=== PATIENT | female | born 1975 | race Caucasian/White ===

== ENCOUNTER 2017-11-07 07:02 | Inpatient (IN) ==
[2017-11-07] MEDS ORDERED: Acetaminophen 325 MG Tablet PO ONE (07:46)
[2017-11-07] MEDS ORDERED: Vancomycin Inj 1,000 MG in Sodium Chlor 0.9% Inj 250 ML IV.SIG ONE (07:50)
[2017-11-07] MEDS ORDERED: HYDROmorphone PF Inj 1 MG/ML Ampul IV.PUSH ONE (08:02)
[2017-11-07] MEDS ORDERED: HYDROmorphone PF Inj 2 MG/ML Vial IV.PUSH ONE (08:05)
--- NOTE | 2017-11-07 08:08 | ED ---
HPI General Chief Complaint: Back Pain/Injury Stated Complaint: back pain Time Seen by Provider: 11/07/17 07:36 History of Present Illness HPI Narrative: Patient presents to the emergency department complaint of back pain that started yesterday afternoon. She denies any fall or trauma. States that this is new and her back feels like it is stiffening up. Pain is described as being mid lower back, 10 out of 10, constant, sharp, radiates to her buttocks and shoots down both legs. Reports fever and chills and nausea but no vomiting. Also reports abdominal pain, and denies any bowel or bladder incontinence. She also denies any vaginal discharge. She denies any change in medication, spinal procedures. Related Data Home Medications Medication Instructions Recorded Confirmed No Known Home Medications 11/07/17 11/07/17 Allergies Allergy/AdvReac Type Severity Reaction Status Date / Time No Known Allergies Allergy Verified 11/07/17 07:45 Review of Systems Constitutional Reports as per [facility] Medical History Medical History Patient denies medical problems (Acute) Surgical History Surgical History History of (Acute) No history of previous surgery (Acute) Social History Social History Substance History: No History of Abuse Second Hand Smoke Exposure: Yes Smoking Status: Current every day smoker Tobacco Type: Cigarettes How Often Do You Have a Drink Containing Alcohol: Monthly or less Recent Travel in [facility] within the Last 8 Weeks: No Recent Out of Country Travel within the Last 8 Weeks: No Immunization History Tetanus Immunization: Unsure Hx Influenza Vaccine This Season: No Exam Narrative Exam Narrative: GENERAL: Discomfort secondary to pain SKIN: Focused skin assessment warm/dry. HEAD: Atraumatic. Normocephalic. EYES: Pupils equal and round. No scleral icterus. No injection or drainage. ENT: No nasal bleeding or discharge. Mucous membranes pink and moist. NECK: Trachea midline. No JVD. CARDIOVASCULAR: Regular rate and rhythm. No murmur appreciated. RESPIRATORY: No accessory muscle use. Clear to auscultation. Breath sounds equal bilaterally. GASTROINTESTINAL: Abdomen soft, diffusely tender, nondistended. Hepatic and splenic margins not palpable. Rectal: Patient refused MUSCULOSKELETAL: No obvious deformities. No clubbing. No cyanosis. No edema. No focal C or T spine tenderness but L-spine tenderness to palpation. NEUROLOGICAL: Awake and alert. No obvious cranial nerve deficits. Motor grossly within normal limits. Normal speech. no saddle anesthesia, 5/5 strength bilat UE and LE, slight hyporeflexic bilat LE, no babinski PSYCHIATRIC: Appropriate mood and affect; insight and judgment normal. Course Initial Documented Vital Signs Temperature 99.3 F 11/07/17 07:23 Pulse Rate 110 H 11/07/17 07:23 Blood Pressure 164/87 H 11/07/17 07:23 Pulse Oximetry 97 11/07/17 07:23 Last Documented Vital Signs Temperature 102.1 F H 11/07/17 07:45 Pulse Rate 101 H 11/07/17 07:45 Respiratory Rate 16 11/07/17 10:30 Blood Pressure 113/75 11/07/17 10:30 Pulse Oximetry 99 11/07/17 10:30 Medical Decision Making MDM Narrative Medical decision making narrative: Patient presents to the emergency department with fever and abdominal pain and mid lower back pain. Patient placed on cardiac cath technologist, continuous pulse ox, IV access obtained. CT abdomen pelvis, MRI L-spine, labs, 1 g IV vancomycin, Tylenol 650 mg p.o., Zofran 4 mg IV ordered. Patient also given 2mg IV morphine. Labs: Elevated lactate, CRP, sed rate, UA + LE CT: CONCLUSION:1. Nonobstructive bowel gas pattern with moderate amount of stool throughout the colon. No oral contrast was given significantly limiting the visualization of the bowel mesentery in this patient with limited mesenteric fat.2. The gallbladder is unremarkable in appearance. MRI L spine: CONCLUSION: 1. Patent central canal and neural foramina throughout.2. No abscess.3. Facet arthropathy changes at L4-L5and L5-S1 1221: NSY blood donor recruiter paged. Advised to call Neuro. 1228: Neuro paged. Recommend brain, C, T spine with and without MRI, UDS, infectious disease consult after aforementioned MRI. Per MRI, since patient had contrast, must wait 6 hours from last MRI to get additional scans. Differential Diagnosis Differential Diagnosis: Kidney stone, pyelonephritis, epidural abscess, fracture /dislocation, UTI, appendicitis, pancreatitis, sepsis Lab Data Result diagrams: 11/07/17 07:50 11/07/17 07:50 Lab Results 11/07/17 11/07/17 11/07/17 Range/Units 07:50 07:50 07:50 WBC 9.8 (4.0-11.0) th/mm3 RBC 4.76 (4.00-5.30) mil/mm3 Hgb 13.3 (11.6-15.3) gm/dL Hct 39.7 (35.0-46.0) % MCV 83.4 (80.0-100.0) fL MCH 27.9 (27.0-34.0) pg MCHC 33.5 (32.0-36.0) % RDW 13.6 (11.6-17.2) % Plt Count 218 (150-450) th/mm3 MPV 7.2 (7.0-11.0) fL Neut % (Auto) 90.0 H (16.0-70.0) % Lymph % (Auto) 5.4 L (9.0-44.0) % [place] % (Auto) 4.1 (0.0-8.0) % Eos % (Auto) 0.2 (0.0-4.0) % Baso % (Auto) 0.3 (0.0-2.0) % Neut # (Auto) 8.8 H (1.8-7.7) th/mm3 Lymph # (Auto) 0.5 L (1.0-4.8) th/mm3 [place] # (Auto) 0.4 (0.0-0.9) th/mm3 Eos # (Auto) 0.0 (0.0-0.4) th/mm3 Baso # (Auto) 0.0 (0.0-0.2) th/mm3 WBC Differential . Differential Comment Auto diff final ESR (0-20) mm/hr PT 10.9 (9.8-11.6) sec INR 1.1 Ratio APTT 24.7 (24.3-30.1) sec Sodium 134 L (136-145) meq/L Potassium 3.8 (3.5-5.1) meq/L Chloride 103 (98-107) meq/L Carbon Dioxide 21.6 (21.0-32.0) meq/L Anion Gap 9 (5-15) meq/L BUN 12 (7-18) mg/dL Creatinine 0.98 (0.50-1.00) mg/dL Estimated GFR 62 L (>89) mL/min Random Glucose 108 H (74-106) mg/dL Lactic Acid (0.4-2.0) mmol/L Calcium 9.2 (8.5-10.1) mg/dL Total Bilirubin 0.6 (0.2-1.0) mg/dL AST 25 (15-37) U/L ALT 28 (10-53) U/L Alkaline Phosphatase 83 (45-117) U/L C-Reactive Protein (0.00-0.30) mg/dL Total Protein 8.3 H (6.4-8.2) g/dL Albumin 3.5 (3.4-5.0) g/dL Lipase (73-393) U/L Urine Color (Yellw/Straw) Urine Clarity (Clear) Urine pH (5.0-8.5) Ur Specific [place] (1.002-1.035) Urine Protein (Neg-Trace) mg/dL Urine Glucose (UA) (Negative) mg/dL Urine Ketones (Negative) mg/dL Urine Occult Blood (Negative) Urine Nitrate (Negative) Urine Bilirubin (Negative) Urine Urobilinogen (Less than 2) mg/dL Ur Leukocyte Esterase (Negative) Urine RBC (0-3) /hpf Urine WBC (0-5) /hpf Ur Squamous Epith Cells (0-5) /hpf Micro UA Comment Urine Culture Comments 11/07/17 11/07/17 11/07/17 Range/Units 07:50 07:50 07:50 WBC (4.0-11.0) th/mm3 RBC (4.00-5.30) mil/mm3 Hgb (11.6-15.3) gm/dL Hct (35.0-46.0) % MCV (80.0-100.0) fL MCH (27.0-34.0) pg MCHC (32.0-36.0) % RDW (11.6-17.2) % Plt Count (150-450) th/mm3 MPV (7.0-11.0) fL Neut % (Auto) (16.0-70.0) % Lymph % (Auto) (9.0-44.0) % [place] % (Auto) (0.0-8.0) % Eos % (Auto) (0.0-4.0) % Baso % (Auto) (0.0-2.0) % Neut # (Auto) (1.8-7.7) th/mm3 Lymph # (Auto) (1.0-4.8) th/mm3 [place] # (Auto) (0.0-0.9) th/mm3 Eos # (Auto) (0.0-0.4) th/mm3 Baso # (Auto) (0.0-0.2) th/mm3 WBC Differential Differential Comment ESR (0-20) mm/hr PT (9.8-11.6) sec INR Ratio APTT (24.3-30.1) sec Sodium (136-145) meq/L Potassium (3.5-5.1) meq/L Chloride (98-107) meq/L Carbon Dioxide (21.0-32.0) meq/L Anion Gap (5-15) meq/L BUN (7-18) mg/dL Creatinine (0.50-1.00) mg/dL Estimated GFR (>89) mL/min Random Glucose (74-106) mg/dL Lactic Acid 2.9 H (0.4-2.0) mmol/L Calcium (8.5-10.1) mg/dL Total Bilirubin (0.2-1.0) mg/dL AST (15-37) U/L ALT (10-53) U/L Alkaline Phosphatase (45-117) U/L C-Reactive Protein 2.00 H (0.00-0.30) mg/dL Total Protein (6.4-8.2) g/dL Albumin (3.4-5.0) g/dL Lipase 65 L (73-393) U/L Urine Color (Yellw/Straw) Urine Clarity (Clear) Urine pH (5.0-8.5) Ur Specific [place] (1.002-1.035) Urine Protein (Neg-Trace) mg/dL Urine Glucose (UA) (Negative) mg/dL Urine Ketones (Negative) mg/dL Urine Occult Blood (Negative) Urine Nitrate (Negative) Urine Bilirubin (Negative) Urine Urobilinogen (Less than 2) mg/dL Ur Leukocyte Esterase (Negative) Urine RBC (0-3) /hpf Urine WBC (0-5) /hpf Ur Squamous Epith Cells (0-5) /hpf Micro UA Comment Urine Culture Comments 11/07/17 11/07/17 Range/Units 07:50 11:25 WBC (4.0-11.0) th/mm3 RBC (4.00-5.30) mil/mm3 Hgb (11.6-15.3) gm/dL Hct (35.0-46.0) % MCV (80.0-100.0) fL MCH (27.0-34.0) pg MCHC (32.0-36.0) % RDW (11.6-17.2) % Plt Count (150-450) th/mm3 MPV (7.0-11.0) fL Neut % (Auto) (16.0-70.0) % Lymph % (Auto) (9.0-44.0) % [place] % (Auto) (0.0-8.0) % Eos % (Auto) (0.0-4.0) % Baso % (Auto) (0.0-2.0) % Neut # (Auto) (1.8-7.7) th/mm3 Lymph # (Auto) (1.0-4.8) th/mm3 [place] # (Auto) (0.0-0.9) th/mm3 Eos # (Auto) (0.0-0.4) th/mm3 Baso # (Auto) (0.0-0.2) th/mm3 WBC Differential Differential Comment ESR 44 H (0-20) mm/hr PT (9.8-11.6) sec INR Ratio APTT (24.3-30.1) sec Sodium (136-145) meq/L Potassium (3.5-5.1) meq/L Chloride (98-107) meq/L Carbon Dioxide (21.0-32.0) meq/L Anion Gap (5-15) meq/L BUN (7-18) mg/dL Creatinine (0.50-1.00) mg/dL Estimated GFR (>89) mL/min Random Glucose (74-106) mg/dL Lactic Acid (0.4-2.0) mmol/L Calcium (8.5-10.1) mg/dL Total Bilirubin (0.2-1.0) mg/dL AST (15-37) U/L ALT (10-53) U/L Alkaline Phosphatase (45-117) U/L C-Reactive Protein (0.00-0.30) mg/dL Total Protein (6.4-8.2) g/dL Albumin (3.4-5.0) g/dL Lipase (73-393) U/L Urine Color Yellow (Yellw/Straw) Urine Clarity Clear (Clear) Urine pH 8.0 (5.0-8.5) Ur Specific [place] 1.026 (1.002-1.035) Urine Protein Negative (Neg-Trace) mg/dL Urine Glucose (UA) Negative (Negative) mg/dL Urine Ketones Negative (Negative) mg/dL Urine Occult Blood Negative (Negative) Urine Nitrate Negative (Negative) Urine Bilirubin Negative (Negative) Urine Urobilinogen Less than 2 (Less than 2) mg/dL Ur Leukocyte Esterase Small H (Negative) Urine RBC 1 (0-3) /hpf Urine WBC 3 (0-5) /hpf Ur Squamous Epith Cells 3 (0-5) /hpf Micro UA Comment Cath-culture not ind Urine Culture Comments Cath-cult not ind Imaging Data Radiologist's impression: Abdomen/Pelvis CT 11/07/17 07:48 CONCLUSION: 1. Nonobstructive bowel gas pattern with moderate amount of stool throughout the colon. No oral contrast was given significantly limiting the visualization of the bowel mesentery in this patient with limited mesenteric fat. 2. The gallbladder is unremarkable in appearance. Lumbar Spine MRI 11/07/17 07:48 CONCLUSION: 1. Patent central canal and neural foramina throughout. 2. No abscess. 3. Facet arthropathy changes at L4-L5 and L5-S1. Discharge Plan Discharge Disposition Patient Disposition: 30 Still Patient Discharge Condition Condition: Stable Discharge Details Diagnosis: Fever, Back pain Physicians Team ED Provider: Rissa Hebert Primary Care Provider: Primary Care EliseiGertrude Rxs /Orders / Referrals /Forms Prescriptions: No Action No Known Home Medications RF: 0 Discharge Interventions Interventions: Vital Signs Last Done: 11/07/17 10:30 Status ED Status: Admitted Patient
[2017-11-07 08:09] LABS: Baso % (Auto) 0.3 % (0.0-2.0); Eos % (Auto) 0.2 % (0.0-4.0); Hematocrit 39.7 % (35.0-46.0); Hemoglobin 13.3 gm/dL (11.6-15.3); Lymph # (Auto) 0.5 th/mm3 (1.0-4.8); Lymph % (Auto) 5.4 % (9.0-44.0); Mean Corpuscular HGB Conc 33.5 % (32.0-36.0); Mean Corpuscular Hemoglobin 27.9 pg (27.0-34.0); Mean Corpuscular Volume 83.4 fL (80.0-100.0); Mean Platelet Volume 7.2 fL (7.0-11.0); Mono # (Auto) 0.4 th/mm3 (0.0-0.9); Mono % (Auto) 4.1 % (0.0-8.0); Neut # (Auto) 8.8 th/mm3 (1.8-7.7); Platelet Count 218 th/mm3 (150-450); Red Blood Count 4.76 mil/mm3 (4.00-5.30); Red Cell Distribution Width 13.6 % (11.6-17.2); White Blood Count 9.8 th/mm3 (4.0-11.0)
[2017-11-07 08:19] LABS: Activated Partial Thrombo Time 24.7 sec (24.3-30.1); INR 1.1 Ratio; Prothrombin Time 10.9 sec (9.8-11.6)
[2017-11-07 08:24] LABS: Alanine Aminotransferase 28 U/L (10-53); Albumin 3.5 g/dL (3.4-5.0); Anion Gap 9 meq/L (5-15); Aspartate Aminotransferase 25 U/L (15-37); Blood Urea Nitrogen 12 mg/dL (7-18); Calcium 9.2 mg/dL (8.5-10.1); Carbon Dioxide 21.6 meq/L (21.0-32.0); Chloride 103 meq/L (98-107); Glomerular Filtration Rate 62 mL/min (>89); Glucose,Random 108 mg/dL (74-106); Potassium 3.8 meq/L (3.5-5.1); Sodium 134 meq/L (136-145)
[2017-11-07 08:26] LABS: Alkaline Phosphatase 83 U/L (45-117); Total Protein 8.3 g/dL (6.4-8.2)
[2017-11-07] MEDS ORDERED: Sod Chloride 0.9% Inj 1,000 ML IV.SIG ONE (08:31)
[2017-11-07] MEDS ORDERED: Morphine Sulfate Inj 2 MG/ML Vial IV.PUSH ONE ×2 (09:13→12:19)
[2017-11-07] MEDS ORDERED: Gadobutrol PF 2 MMOL/2 ML Vial (for RAD) IV.SIG ONE (10:00)
--- NOTE | 2017-11-07 10:07 | CT ---
EXAM DATE: 11/07/2017 9:49 AM EDT AGE/SEX: 42 years / Female INDICATIONS: Diffuse abdominal pain and low back pain. CLINICAL DATA: This is the patient's initial encounter. Patient reports that signs and symptoms have been present for 1 day and indicates a pain score of 10/10. MEDICAL/SURGICAL HISTORY: None. None. ORAL CONTRAST: No oral contrast ingested. RADIATION DOSE: 5.65 CTDI (mGy) COMPARISON: No prior exams available for comparison. TECHNIQUE: Multiple contiguous axial images were obtained through the abdomen and pelvis following b olus infusion of 95 ml Omnipaque 350 (iohexol) nonionic water-soluble contrast as a single exam dos e. No oral contrast ingested. Using automated exposure control and adjustment of the mA and/or kV ac cording to patient size, radiation dose was kept as low as reasonably achievable to obtain optimal di agnostic quality images. DICOM format image data is available electronically for review and comparis on. FINDINGS: Lower Lungs: The visualized lower lungs are clear. Liver: The liver has a homogeneous density without space-occupying lesion. There is no dilation of th e biliary tree. The gallbladder is unremarkable in appearance. Spleen: Homogeneous density without enlargement. Pancreas: Unremarkable without mass or calcification. Kidneys: Normal in size and shape. No evidence of mass or hydronephrosis. Adrenal Glands: Unremarkable. Aorta: The aorta and proximal iliac vessels are grossly unremarkable without aneurysmal dilation. Bowel/Mesentery: No oral contrast was given significantly limiting the visualization of the bowel and mesentery. The patient has limited mesenteric fat and the bowel loops are directly contiguous and no t well . Visualization is suboptimal. Gas and stool is noted throughout the colon. The small bowel appears grossly unremarkable. The cecum and sigmoid colon have a normal configuration. Abdominal Wall: Intact. Retroperitoneum: No evidence of adenopathy in the retrocrural, para-aortic, or deep pelvic regions. Bladder: Contours are smooth. Reproductive Organs: No abnormal masses or calcifications seen. Inguinal: The inguinal region is unremarkable without evidence of adenopathy. Bony Structures: Unremarkable. CONCLUSION: 1. Nonobstructive bowel gas pattern with moderate amount of stool throughout the colon. No oral cont rast was given significantly limiting the visualization of the bowel mesentery in this patient with l imited mesenteric fat. 2. The gallbladder is unremarkable in appearance. Electronically signed by: Kailash Dorman MD 11/07/2017 10:05 AM EDT
--- NOTE | 2017-11-07 10:49 | MR ---
EXAM DATE: 11/07/2017 10:38 AM EDT AGE/SEX: 42 years / Female INDICATIONS: Abscess. Severe low back pain. CLINICAL DATA: This is the patient's initial encounter. Patient reports that signs and symptoms have been present for 1 day and indicates a pain score of 10/10. MEDICAL/SURGICAL HISTORY: None. section. Hysterectomy. Ankle repair. COMPARISON: No prior exams available for comparison. TECHNIQUE: Multiplanar, multisequence MRI examination of the lumbar spine was performed without and with 6 ml Gadavist (gadobutrol) contrast as a single exam dose. FINDINGS: The most caudal-appearing lumbar vertebra is numbered as L5. Vertebra: Homogeneous signal. Normal alignment. Conus: Normal level and configuration. Post Contrast: No abnormal areas of contrast enhancement are seen. T12-L1: The thecal sac has a normal diameter. No evidence of disc bulge or protrusion. The neural foramina are patent bilaterally. L1-L2: The thecal sac has a normal diameter. No evidence of disc bulge or protrusion. The neural foramina are patent bilaterally. L2-L3: The thecal sac has a normal diameter. No evidence of disc bulge or protrusion. The neural foramina are patent bilaterally. L3-L4: The thecal sac has a normal diameter. No evidence of disc bulge or protrusion. The neural foramina are patent bilaterally. L4-L5: The thecal sac has a normal diameter. No evidence of disc bulge or protrusion. The neural foramina are patent bilaterally. Prominent bony hypertrophy of the facets bilaterally. L5-S1: The thecal sac has a normal diameter. No evidence of disc bulge or protrusion. The neural foramina are patent bilaterally. Moderate bony hypertrophy of the facets. CONCLUSION: 1. Patent central canal and neural foramina throughout. 2. No abscess. 3. Facet arthropathy changes at L4-L5 and L5-S1. Electronically signed by: Ralph Uribe MD 11/07/2017 10:48 AM EDT
[2017-11-07] MEDS ORDERED: Piperacil/Tazo 3.375 GM Premix 50 ML IV.SIG ONE (11:15)
[2017-11-07 12:10] LABS: Bilirubin,Urine Negative (Negative); Clarity,Urine Clear (Clear); Color,Urine Yellow (Yellw/Straw); Glucose,Urine (UA) Negative (Negative); Leukocyte Esterase,Urine Small (Negative); Nitrite,Urine Negative (Negative); Specific Gravity,Urine 1.026 (1.002-1.035); Squamous Epithelial Cell,Urine 3 /hpf (0-5)
[2017-11-07] MEDS ORDERED: Ketorolac Inj 30 MG/ML (IVP) Vial IV.PUSH PRN (13:59)
[2017-11-07] MEDS ORDERED: MethylPREDNISolone Sod Succinate Inj 125 MG/2 ML Vial IV.PUSH ONE (14:00)
[2017-11-07] MEDS ORDERED: Acetaminophen 325 MG Tablet PO PRN (14:01)
--- NOTE | 2017-11-07 14:14 | P.HP ---
History of Present Illness Primary Care Physician: No Primary Care Physician History of Present Illness: This is a 42-year-old female who denies any chronic medical issues that presents with excruciating pain to her mid back. Onset of pain began yesterday when she awoke in her back was tender, spastic, aligned with onset of fevers. She suffered for a day and decided to come in for evaluation. She does not recall any injuries in the days leading up to this pain, denies falls, denies any twisting injury. She denies use of a new mattress or any new furniture. Prior to all of this she is very active, is a regular runner, and surfer. ER workup shows no leukocytosis, but markedly elevated CRP. Neurology was consulted and recommended MRI of the thoracic spine among other things. MRI of the lumbar spine was within normal limits. She denies any history of IV drug use. Inpatient Certification: I certify that the inpatient services were ordered in accordance with Medicare regulations governing the order. This includes certification that hospital inpatient services are reasonable and necessary and in the case of services not specified as inpatient-only under 42 CFR 419.22(n), that they are appropriately provided as inpatient services in accordance to with the 2-midnight benchmark under 43 CFR 412.3(e) Estimated Total Length of Stay (Days): 5 Plans for Post Hospital Care: Home Review of Systems Constitutional: Complains of fevers and chills. Denies daytime sleepiness, Denies fatigue, Denies weakness, Denies headache, Denies malaise, Denies night sweats, Denies anorexia, Denies increased appetite Denies weight gain, Denies weight loss Eyes: Denies visual changes, Denies visual loss, Denies double vision, Denies blind spots, Denies blurry vision, Denies discharge, Denies dry eyes, Denies floaters, Denies irritation, Denies itchy eyes, Denies pain, Denies photophobia , Denies bulging eyes Ears, Nose, Mouth, and Throat: Denies bleeding gums, Denies change in voice, Denies difficulty swallowing, Denies abnormal hearing, Denies ear discharge, Denies ear pain, Denies tinitus, Denies vertigo, Denies facial pain, Denies hoarseness, Denies lip swelling, Denies mouth lesions, Denies nasal congestion, Denies nasal discharge, Denies nasal obstruction, Denies neck lump, Denies neck pain, Denies nose pain, Denies nosebleed, Denies post nasal drip, Denies sinus pain, Denies sinus pressure, Denies sore throat, Denies throat swelling, Denies tongue swelling Cardiovascular: Denies chest pain, Denies fainting, Denies fast heart rate, Denies foot swelling, Denies generalized swelling, Denies irregular heart rhythm , Denies leg sores, Denies leg swelling, Denies shortness of breath when lying down, Denies shortness of breath causing sudden awakening, Denies slow heart rate Respiratory: Denies change in phlegm color, Denies chest congestion, Denies cough, Denies coughing up blood, Denies excessive phlegm production, Denies pain on inspiration, Denies pain with cough, Denies shortness of breath, Denies shortness of breath with activity, Denies snoring, Denies stridor, Denies wheezing, Denies other Gastrointestinal: Denies abdominal pain, Denies bleeding, Denies stool color changes, Denies bloating, Denies change in bowel habits, Denies coffee ground vomit, Denies constipation, Denies feeling full early, Denies heartburn, Denies loose stools, Denies nausea, Denies vomiting, Denies pain with swallowing Skin/Breast: Denies bleeding lesions, Denies boil, Denies change in skin color, Denies changing lesions, Denies itching, Denies redness, Denies rash,Denies skin ulcer, Denies sores, Musculoskeletal: See HPI Neurologic: Denies abnormal speech, Denies abnormal walking, Denies dizziness, Denies fainting, Denies frequent falls, Denies lack of coordination, Denies localized weakness, Denies loss of vision, Denies memory loss, Denies numbness, Denies convulsions, Denies tingling/numbness/burning sensations, Denies tremor Psychiatric: Denies anxiety, Denies behavioral changes, Denies depression, Denies memory loss, Denies hallucinations, Denies thoughts of hurting/killing others, Denies thoughts of hurting/killing self Endocrine: Denies cold intolerance, Denies excessive sweating, Denies flushing, Denies heat intolerance, Denies increased thirst, Denies weight gain or loss Hematologic/Lymphatic: Denies easy bleeding, Denies easy bruising, Denies enlarged lymph node Allergic/Immunologic: Denies GI upset with certain foods, Denies hives, Denies seasonal runny nose PMFSH - History History Provided By: Patient - Medical History Medical History: Medical History (Last Updated 11/07/17 @ 07:33 by Nicole Barba) Patient denies medical problems - Surgical History Surgical History: Surgical History (Last Updated 11/07/17 @ 07:34 by Nicole Barba) History of No history of previous surgery - Tobacco History Second Hand Smoke Exposure: Yes Tobacco Use In Past 30 Days: Yes Smoking Status: Current every day smoker Tobacco Type: Cigarettes - Alcohol History How Often Do You Have a Drink Containing Alcohol: Monthly or less - Substance Use History Substance History: No History of Abuse - Travel History Recent Travel in the [place] Within the Last 8 Weeks: No Recent Travel Out of the Country Within the Last 8 Weeks: No - Immunization History Tetanus Immunization: Unsure Hx Influenza Vaccine This Season: No Medications and Allergies Active Medications: Active Medications Acetaminophen (Tylenol) 650 mg PO Q4H PRN PRN Reason: Temp > 100.4 Al Hydroxide/Mg Hydroxide (Milk Of Galindo Leblanc) 30 ml PO Q12H PRN PRN Reason: Mild Constipation Cyclobenzaprine HCl (Flexeril) 10 mg PO Q8H PRN PRN Reason: SPASM Hydromorphone HCl (Dilaudid Pf Inj) 0.5 mg IV.PUSH Q4H PRN PRN Reason: BREAKTHROUGH PAIN Piperacillin/Tazobactam/Dextrose (Zosyn 3.375 Gm Premix) 50 mls @ 100 mls/hr IV.SIG Q8H [place] Vancomycin/Sodium Chloride (Vancomycin Inj) 1 gm in 200 mls @ 200 mls/hr IV.SIG Q24H [place] Ketorolac Tromethamine (Toradol Inj) 15 mg IV.PUSH Q4H PRN PRN Reason: PAIN SCALE 6 TO 10 Methylprednisolone Sodium Succinate (Solumedrol Inj) 125 mg IV.PUSH ONCE ONE Stop: 11/07/17 14:01 Ondansetron HCl (Zofran Inj) 4 mg IV.PUSH Q6H PRN PRN Reason: NAUSEA OR VOMITING Temazepam (Restoril) 15 mg PO HS PRN PRN Reason: INSOMNIA Allergies Allergy/AdvReac Type Severity Reaction Status Date / Time No Known Allergies Allergy Verified 11/07/17 07:45 Home Medications Medication Instructions Recorded Confirmed Type No Known Home Medications 11/07/17 11/07/17 History Exam Vital signs: Vital Signs 11/07/17 07:23 11/07/17 07:45 11/07/17 10:30 Temperature 99.3 F 102.1 F H Pulse Rate 110 H 101 H Respiratory Rate 17 16 Blood Pressure 164/87 H 137/81 113/75 Pulse Oximetry 97 100 99 Intake & Output 11/06/17 11/07/17 11/07/17 18:59 06:59 18:59 Intake Total 1250 / 1250 Output Total 1200 / 1200 Balance 50 / 50 Weight 63.503 kg Intake: IV 1250 / 1250 NS Inj 1,000 ML @ Wide Open IV. 1000 / 1000 SIG BOLUS ONE Rx#:[id number] Vancomycin Inj 1,000 MG In NS 250 / 250 Inj 250 ML @ 250 mls/hr IV.SIG ONCE ONE Rx#:[id number] Output: Urine Amount (Catheter) 1200 / 1200 Indwelling Urethral Catheter 1200 / 1200 Narrative: GENERAL: AAOx3, in distress from pain, physically fit SKIN: Warm and dry, no rashes. HEAD: Atraumatic. Normocephalic. EYES: Pupils equal, round, reactive to light. No scleral icterus. No injection or drainage. ENT: No nasal bleeding or discharge. Moist mucous membranes. Nonerythematous oropharynx. NECK: Trachea midline. No JVD. Thyroid size within normal limits. CARDIOVASCULAR: Tachycardia. No murmur, no gallops, no rubs. RESPIRATORY: Clear and equal to auscultation bilaterally. No crackles, no wheezes. No accessory muscle use. GASTROINTESTINAL: Abdomen soft, non-tender, nondistended, normal active bowel sounds. Hepatic and splenic margins not palpable. MUSCULOSKELETAL: Extremities without clubbing or cyanosis. No obvious deformities. No edema. NEUROLOGICAL: Awake and alert. No obvious cranial nerve deficits. Motor grossly within normal limits. No focal deficits. Five out of 5 muscle strength in the arms and legs. Normal speech. Exam limited by pain. PSYCHIATRIC: Appropriate mood and affect; insight and judgment normal. Results - Labs CBC & Chem 7: 11/07/17 07:50 11/07/17 07:50 Labs: Laboratory Results - last 24 hr 11/07/17 11/07/17 11/07/17 07:50 07:50 07:50 WBC 9.8 RBC 4.76 Hgb 13.3 Hct 39.7 MCV 83.4 MCH 27.9 MCHC 33.5 RDW 13.6 Plt Count 218 MPV 7.2 Neut % (Auto) 90.0 H Lymph % (Auto) 5.4 L [place] % (Auto) 4.1 Eos % (Auto) 0.2 Baso % (Auto) 0.3 Neut # (Auto) 8.8 H Lymph # (Auto) 0.5 L [place] # (Auto) 0.4 Eos # (Auto) 0.0 Baso # (Auto) 0.0 WBC Differential . Differential Comment Auto diff final ESR PT 10.9 INR 1.1 APTT 24.7 Sodium 134 L Potassium 3.8 Chloride 103 Carbon Dioxide 21.6 Anion Gap 9 BUN 12 Creatinine 0.98 Estimated GFR 62 L Random Glucose 108 H Lactic Acid Calcium 9.2 Total Bilirubin 0.6 AST 25 ALT 28 Alkaline Phosphatase 83 C-Reactive Protein Total Protein 8.3 H Albumin 3.5 Lipase Urine Color Urine Clarity Urine pH Ur Specific [place] Urine Protein Urine Glucose (UA) Urine Ketones Urine Occult Blood Urine Nitrate Urine Bilirubin Urine Urobilinogen Ur Leukocyte Esterase Urine RBC Urine WBC Ur Squamous Epith Cells Micro UA Comment Urine Culture Comments 11/07/17 11/07/17 11/07/17 07:50 07:50 07:50 WBC RBC Hgb Hct MCV MCH MCHC RDW Plt Count MPV Neut % (Auto) Lymph % (Auto) [place] % (Auto) Eos % (Auto) Baso % (Auto) Neut # (Auto) Lymph # (Auto) [place] # (Auto) Eos # (Auto) Baso # (Auto) WBC Differential Differential Comment ESR PT INR APTT Sodium Potassium Chloride Carbon Dioxide Anion Gap BUN Creatinine Estimated GFR Random Glucose Lactic Acid 2.9 H Calcium Total Bilirubin AST ALT Alkaline Phosphatase C-Reactive Protein 2.00 H Total Protein Albumin Lipase 65 L Urine Color Urine Clarity Urine pH Ur Specific [place] Urine Protein Urine Glucose (UA) Urine Ketones Urine Occult Blood Urine Nitrate Urine Bilirubin Urine Urobilinogen Ur Leukocyte Esterase Urine RBC Urine WBC Ur Squamous Epith Cells Micro UA Comment Urine Culture Comments 11/07/17 11/07/17 07:50 11:25 WBC RBC Hgb Hct MCV MCH MCHC RDW Plt Count MPV Neut % (Auto) Lymph % (Auto) [place] % (Auto) Eos % (Auto) Baso % (Auto) Neut # (Auto) Lymph # (Auto) [place] # (Auto) Eos # (Auto) Baso # (Auto) WBC Differential Differential Comment ESR 44 H PT INR APTT Sodium Potassium Chloride Carbon Dioxide Anion Gap BUN Creatinine Estimated GFR Random Glucose Lactic Acid Calcium Total Bilirubin AST ALT Alkaline Phosphatase C-Reactive Protein Total Protein Albumin Lipase Urine Color Yellow Urine Clarity Clear Urine pH 8.0 Ur Specific [place] 1.026 Urine Protein Negative Urine Glucose (UA) Negative Urine Ketones Negative Urine Occult Blood Negative Urine Nitrate Negative Urine Bilirubin Negative Urine Urobilinogen Less than 2 Ur Leukocyte Esterase Small H Urine RBC 1 Urine WBC 3 Ur Squamous Epith Cells 3 Micro UA Comment Cath-culture not ind Urine Culture Comments Cath-cult not ind - Imaging Impressions Abdomen/Pelvis CT 11/07/17 07:48 CONCLUSION: 1. Nonobstructive bowel gas pattern with moderate amount of stool throughout the colon. No oral contrast was given significantly limiting the visualization of the bowel mesentery in this patient with limited mesenteric fat. 2. The gallbladder is unremarkable in appearance. Lumbar Spine MRI 11/07/17 07:48 CONCLUSION: 1. Patent central canal and neural foramina throughout. 2. No abscess. 3. Facet arthropathy changes at L4-L5 and L5-S1. Caprini VTE Risk Assessment Caprini VTE Risk Assessment: No/Low Risk (score <= 1) Caprini Risk Assessment Model: Point Value = 1 Point Value = 2 Point Value = 3 Point Value = 5 Age 41-60 Minor surgery BMI > 25 kg/m2 Swollen legs Varicose veins or History of unexplained or recurrent spontaneous Oral contraceptives or hormone replacement Sepsis (< 1 month) Serious lung disease, including pneumonia (< 1 month) Abnormal pulmonary function Acute myocardial infarction Congestive heart failure (< 1 month) History of inflammatory bowel disease Medical patient at bed rest Age 61-74 Arthroscopic surgery Major open surgery (> 45 min) Laparoscopic surgery (> 45 min) Malignancy Confined to bed (> 72 hours) Immobilizing plaster cast Central venous access Age >= 75 History of VTE Family history of VTE Factor V Leiden Prothrombin [id number] Lupus anticoagulant Anticardiolipin antibodies Elevated serum homocysteine Heparin-induced thrombocytopenia Other congenital or acquired thrombophilia Stroke (< 1 month) Elective arthroplasty Hip, pelvis, or leg fracture Acute spinal cord injury (< 1 month) Prophylaxis Regimen: Total Risk Factor Score Risk Level Prophylaxis Regimen 0-1 Low Early ambulation 2 Moderate Order ONE of the following: *Sequential Compression Device (SCD) *Heparin 5000 units SQ BID 3-4 Higher Order ONE of the following medications: *Heparin 5000 units SQ TID *Enoxaparin/Lovenox 40 mg SQ daily (WT < 150 kg, CrCl > 30 mL/min) *Enoxaparin/Lovenox 30 mg SQ daily (WT < 150 kg, CrCl > 10-29 mL/min) *Enoxaparin/Lovenox 30 mg SQ BID (WT < 150 kg, CrCl > 30 mL/min) AND/OR *Sequential Compression Device (SCD) 5 or more Highest Order ONE of the following medications: *Heparin 5000 units SQ TID (Preferred with Epidurals) *Enoxaparin/Lovenox 40 mg SQ daily (WT < 150 kg, CrCl > 30 mL/min) *Enoxaparin/Lovenox 30 mg SQ daily (WT < 150 kg, CrCl > 10-29 mL/min) *Enoxaparin/Lovenox 30 mg SQ BID (WT < 150 kg, CrCl > 30 mL/min) AND *Sequential Compression Device (SCD) Assessment and Plan - Plan Mid back pain, acute onset Association with fevers points to risk of infection, elevated CRP, no leukocytosis Broad coverage with vancomycin and Zosyn IV Neurology was consulted by ER physician to assist with workup MRI of brain and C-spine and thoracic spine are pending Follow vitals, follow CBC trend Toradol added for pain, continuing Dilaudid, single dose of Solu-Medrol, Flexeril Appreciate neurology consult DVT prophylaxis SCDs until further information is gathered about acute onset back pain
[2017-11-07] MEDS ORDERED: Piperacil/Tazo 3.375 GM Premix 50 ML IV.SIG SCH (14:15)
[2017-11-07] MEDS: HYDROmorphone PF Inj 2 MG/ML Vial IV.PUSH PRN ×2 (14:36→21:21)
[2017-11-07 14:41] LABS: Amphetamine Screen,Urine Pos (Neg); Barbiturate Screen,Urine Neg (Neg); Cannabinoid Screen,Urine Neg (Neg); Cocaine Screen,Urine Neg (Neg)
[2017-11-07 14:46] LABS: Opiate Screen,Urine Pos (Neg)
[2017-11-07] MEDS: Ketorolac Inj 30 MG/ML (IVP) Vial IV.PUSH PRN ×2 (19:01→22:57)
[2017-11-07] MEDS: Piperacil/Tazo 3.375 GM Premix 50 ML IV.SIG SCH (21:25)
[2017-11-08] MEDS: Piperacil/Tazo 3.375 GM Premix 50 ML IV.SIG SCH ×3 (03:36→23:14)
[2017-11-08] MEDS: Ketorolac Inj 30 MG/ML (IVP) Vial IV.PUSH PRN ×3 (03:37→23:14)
[2017-11-08] MEDS: HYDROmorphone PF Inj 2 MG/ML Vial IV.PUSH PRN (06:18)
--- NOTE | 2017-11-08 07:50 | P.PN ---
Physical Exam Vital signs: Vital Signs 11/07/17 10:30 11/07/17 12:30 11/07/17 14:30 Temperature 98.1 F Pulse Rate 82 82 Respiratory Rate 16 16 16 Blood Pressure 113/75 140/64 170/96 H Pulse Oximetry 99 11/07/17 16:00 11/07/17 16:19 11/07/17 20:00 Temperature 97.6 F 97.8 F Pulse Rate 90 92 H Respiratory Rate 18 17 18 Blood Pressure 153/74 H 143/91 H Pulse Oximetry 100 96 11/08/17 00:00 11/08/17 00:40 11/08/17 04:00 Temperature 99.8 F H 99.9 F H Pulse Rate 93 H 92 H Respiratory Rate 20 18 20 Blood Pressure 148/86 H 136/81 Pulse Oximetry 98 99 11/08/17 04:57 Temperature Pulse Rate Respiratory Rate 18 Blood Pressure Pulse Oximetry Intake & Output 11/07/17 11/08/17 11/08/17 18:59 06:59 18:59 Intake Total 1300 / 1300 500 / 500 Output Total 2400 / 2400 1500 / 1500 Balance -1100 / -1100 -1000 / -1000 Weight 63.5 kg Intake: IV 1300 / 1300 100 / 100 Zosyn 3.375 GM Premix 50 ML @ 50 / 50 100 / 100 100 mls/hr IV.SIG Q8H [place] Rx#: [id number] NS Inj 1,000 ML @ Wide Open IV. 1000 / 1000 SIG BOLUS ONE Rx#:[id number] Vancomycin Inj 1,000 MG In NS 250 / 250 Inj 250 ML @ 250 mls/hr IV.SIG ONCE ONE Rx#:[id number] Oral 400 / 400 Output: Urine Amount (Catheter) 2400 / 2400 1500 / 1500 Indwelling Urethral Catheter 2400 / 2400 1500 / 1500 Other: Weight On Admission 63.5 kg Narrative: Subjective Reports nausea not much improved by zofran. No new motor deficit. Feels tired and is somnolent . Follows commands. With low back pain , no headache or neck stiffness. No change in vision. No fever or chills. Physical exam GENERAL: AAOx3, in distress from pain, physically fit CARDIOVASCULAR: Tachycardia. No murmur, no gallops, no rubs. RESPIRATORY: Clear and equal to auscultation bilaterally. No crackles, no wheezes. No accessory muscle use. GASTROINTESTINAL: Abdomen soft, non-tender, nondistended, normal active bowel sounds. Hepatic and splenic margins not palpable. MUSCULOSKELETAL: Extremities without clubbing or cyanosis. No obvious deformities. No edema. NEUROLOGICAL: Awake and alert. No obvious cranial nerve deficits. Motor grossly within normal limits. No focal deficits. Five out of 5 muscle strength in the arms and legs. Normal speech. Exam limited by pain. PSYCHIATRIC: Appropriate mood and affect; insight and judgment normal. Assessment and Plan Mid back pain, acute onset Association with fevers points to risk of infection, elevated CRP, no leukocytosis Broad coverage with vancomycin and Zosyn IV Elevated CRP and ESR Neurology was consulted by ER physician to assist with workup MRI of brain and C-spine no diskitis. MRI thoracic spine are pending Follow vitals, follow CBC trend Toradol added for pain, continuing Dilaudid, single dose of Solu-Medrol, Flexeril Appreciate neurology consult, Seen by Dr Del Valle. If imaging without signs of infection consider LP to r/o meningitis DVT prophylaxis SCDs until further information is gathered about acute onset back pain - Urinary Catheter Management Indwelling Urethral Catheter Cath placed during this visit: no Reason for continuing: Acute urinary retention Results - Labs CBC & Chem 7: 11/07/17 07:50 11/07/17 07:50 Laboratory Results - last 24 hr 11/07/17 11/07/17 11/07/17 07:50 07:50 07:50 WBC 9.8 RBC 4.76 Hgb 13.3 Hct 39.7 MCV 83.4 MCH 27.9 MCHC 33.5 RDW 13.6 Plt Count 218 MPV 7.2 Neut % (Auto) 90.0 H Lymph % (Auto) 5.[address] [place] % (Auto) 4.1 Eos % (Auto) 0.2 Baso % (Auto) 0.3 Neut # (Auto) 8.8 H Lymph # (Auto) 0.[address] [place] # (Auto) 0.4 Eos # (Auto) 0.0 Baso # (Auto) 0.0 WBC Differential . Differential Comment Auto diff final ESR PT 10.9 INR 1.1 APTT 24.7 Sodium 134 L Potassium 3.8 Chloride 103 Carbon Dioxide 21.6 Anion Gap 9 BUN 12 Creatinine 0.98 Estimated GFR 62 L Random Glucose 108 H Lactic Acid Calcium 9.2 Total Bilirubin 0.6 AST 25 ALT 28 Alkaline Phosphatase 83 C-Reactive Protein Total Protein 8.3 H Albumin 3.5 Lipase Urine Color Urine Clarity Urine pH Ur Specific [place] Urine Protein Urine Glucose (UA) Urine Ketones Urine Occult Blood Urine Nitrate Urine Bilirubin Urine Urobilinogen Ur Leukocyte Esterase Urine RBC Urine WBC Ur Squamous Epith Cells Micro UA Comment Urine Culture Comments Urine Opiates Screen Ur Barbiturates Screen Ur Amphetamines Screen U Benzodiazepines Scrn Urine Cocaine Screen U Cannabinoids Screen 11/07/17 11/07/17 11/07/17 07:50 07:50 07:50 WBC RBC Hgb Hct MCV MCH MCHC RDW Plt Count MPV Neut % (Auto) Lymph % (Auto) [place] % (Auto) Eos % (Auto) Baso % (Auto) Neut # (Auto) Lymph # (Auto) [place] # (Auto) Eos # (Auto) Baso # (Auto) WBC Differential Differential Comment ESR PT INR APTT Sodium Potassium Chloride Carbon Dioxide Anion Gap BUN Creatinine Estimated GFR Random Glucose Lactic Acid 2.9 H Calcium Total Bilirubin AST ALT Alkaline Phosphatase C-Reactive Protein 2.00 H Total Protein Albumin Lipase 65 L Urine Color Urine Clarity Urine pH Ur Specific [place] Urine Protein Urine Glucose (UA) Urine Ketones Urine Occult Blood Urine Nitrate Urine Bilirubin Urine Urobilinogen Ur Leukocyte Esterase Urine RBC Urine WBC Ur Squamous Epith Cells Micro UA Comment Urine Culture Comments Urine Opiates Screen Ur Barbiturates Screen Ur Amphetamines Screen U Benzodiazepines Scrn Urine Cocaine Screen U Cannabinoids Screen 11/07/17 11/07/17 11/07/17 07:50 11:25 11:25 WBC RBC Hgb Hct MCV MCH MCHC RDW Plt Count MPV Neut % (Auto) Lymph % (Auto) [place] % (Auto) Eos % (Auto) Baso % (Auto) Neut # (Auto) Lymph # (Auto) [place] # (Auto) Eos # (Auto) Baso # (Auto) WBC Differential Differential Comment ESR 44 H PT INR APTT Sodium Potassium Chloride Carbon Dioxide Anion Gap BUN Creatinine Estimated GFR Random Glucose Lactic Acid Calcium Total Bilirubin AST ALT Alkaline Phosphatase C-Reactive Protein Total Protein Albumin Lipase Urine Color Yellow Urine Clarity Clear Urine pH 8.0 Ur Specific [place] 1.026 Urine Protein Negative Urine Glucose (UA) Negative Urine Ketones Negative Urine Occult Blood Negative Urine Nitrate Negative Urine Bilirubin Negative Urine Urobilinogen Less than 2 Ur Leukocyte Esterase Small H Urine RBC 1 Urine WBC 3 Ur Squamous Epith Cells 3 Micro UA Comment Cath-culture not ind Urine Culture Comments Cath-cult not ind Urine Opiates Screen Pos H Ur Barbiturates Screen Neg Ur Amphetamines Screen Pos H U Benzodiazepines Scrn Neg Urine Cocaine Screen Neg U Cannabinoids Screen Neg - Imaging Impressions Abdomen/Pelvis CT 11/07/17 07:48 CONCLUSION: 1. Nonobstructive bowel gas pattern with moderate amount of stool throughout the colon. No oral contrast was given significantly limiting the visualization of the bowel mesentery in this patient with limited mesenteric fat. 2. The gallbladder is unremarkable in appearance. Lumbar Spine MRI 11/07/17 07:48 CONCLUSION: 1. Patent central canal and neural foramina throughout. 2. No abscess. 3. Facet arthropathy changes at L4-L5 and L5-S1.
[2017-11-08] MEDS ORDERED: Vancomycin Inj 1 GM/200 ML PIGGYBACK IV.SIG SCH (09:00)
[2017-11-08] MEDS: Vancomycin Inj 1,000 MG in Sodium Chlor 0.9% Inj 250 ML IV.SIG SCH (09:17)
--- NOTE | 2017-11-08 17:22 | MB ---
cc: Jamie Del Valle MD, PhD DATE: 11/08/2017 REASON FOR CONSULTATION: Back pain. HISTORY OF PRESENT ILLNESS: Ms. Cortez is a very pleasant 42-year-old female who noted the acute onset of severe low back pain with no precipitating event, which she describes in the lumbar area, radiating down both lower extremities. She denies any injury. Apparently was having fevers and chills, was found to have an elevated SED rate of 44. PAST MEDICAL HISTORY: Otherwise unremarkable. PHYSICAL EXAMINATION: GENERAL: The patient does appear to be in distress due to severe pain. VITAL SIGNS: Blood pressure is 136/81, pulse 92, respirations 20, temperature 99.9 degrees. NEUROLOGIC: Higher cortical functions are normal. Cranial nerves intact. Motor exam: No focal deficit. She has generalized weakness due to pain. Reflexes are symmetric. IMAGING STUDIES: MRI of the lumbar spine is within normal limits, done with and without contrast. There is some facet arthropathy at L4-L5 and L5-S1. CT abdomen and pelvis is within normal limits. LABORATORY DATA: PT 10.9, INR 1.1, aPTT 24.7. White count 9800, hemoglobin 13.3, hematocrit 39.7%, platelet count 218,000. SED rate 44. Sodium is 134, potassium 3.8, chloride 103, CO2 21.6, the BUN is 12, creatinine 0.98, GFR 62, glucose 108, calcium 2.9. AST 25, ALT 28. C-reactive protein is 2. Lipase 65. Urinalysis, the pH is , small leukocyte esterase, 1 RBC present. Tox screen positive for opiates and amphetamine. IMPRESSION AND PLAN: Severe low back pain. The MRI of the lumbar spine is essentially normal. No evidence for diskitis is identified. Would recommend proceeding with an MRI of the thoracic spine with and without contrast. If no other etiology of the pain is identified, consider lumbar puncture to rule out an atypical meningeal inflammatory process. Jamie Del Valle MD, PhD YAMILETH/MARYJO , 04:56 PM , 05:04 PM
[2017-11-09] MEDS: Piperacil/Tazo 3.375 GM Premix 50 ML IV.SIG SCH ×3 (03:53→23:52)
[2017-11-09] MEDS: Ketorolac Inj 30 MG/ML (IVP) Vial IV.PUSH PRN ×2 (06:09→16:56)
[2017-11-09] MEDS: Vancomycin Inj 1,000 MG in Sodium Chlor 0.9% Inj 250 ML IV.SIG SCH (08:53)
--- NOTE | 2017-11-09 09:28 | P.PN ---
Physical Exam Vital signs: Vital Signs 11/08/17 12:00 11/08/17 16:00 11/08/17 20:00 Temperature 98.6 F 98.9 F 100.2 F H Pulse Rate 77 71 70 Respiratory Rate 20 20 18 Blood Pressure 136/82 137/79 141/86 H Pulse Oximetry 98 97 98 11/09/17 00:00 Temperature 98.3 F Pulse Rate 62 Respiratory Rate 18 Blood Pressure 140/79 Pulse Oximetry 99 Intake & Output 11/08/17 11/09/17 11/09/17 18:59 06:59 18:59 Intake Total 700 / 700 50 / 50 50 / 50 Output Total 1500 / 1500 Balance -800 / -800 50 / 50 50 / 50 Weight 58.9 kg Intake: IV 300 / 300 50 / 50 50 / 50 Zosyn 3.375 GM Premix 50 ML @ 50 / 50 50 / 50 50 / 50 100 mls/hr IV.SIG Q8H [facility] Rx#: [id number] Vancomycin Inj 1,000 MG In NS 250 / 250 Inj 250 ML @ 250 mls/hr IV.SIG Q24H [facility] Rx#:[id number] Oral 400 / 400 Output: Urine Amount (Catheter) 1500 / 1500 Indwelling Urethral Catheter 1500 / 1500 Other: # Incontinent Voids 1 Date of Last Bowel Movement 11/06/17 Narrative: Subjective Reports nausea not much improved by zofran added reglan and phenergan . The patient is still nauseated and vomited 2x in the morning. With back pain lower also has back pain when she moves her head, there is no stiffness of her neck. No new motor deficit. Feels tired and is somnolent, not interacting much. Follows some commands. No change in vision. No fever or chills. Refused MRis yesterday she went for MRIs today Physical exam GENERAL: AAOx3, in distress from pain, physically fit CARDIOVASCULAR: Tachycardia. No murmur, no gallops, no rubs. RESPIRATORY: Clear and equal to auscultation bilaterally. No crackles, no wheezes. No accessory muscle use. GASTROINTESTINAL: Abdomen soft, non-tender, nondistended, normal active bowel sounds. Hepatic and splenic margins not palpable. MUSCULOSKELETAL: Extremities without clubbing or cyanosis. No obvious deformities. No edema. NEUROLOGICAL: Awake and alert. No obvious cranial nerve deficits. Motor grossly within normal limits. No focal deficits. Five out of 5 muscle strength in the arms and legs. Normal speech. Exam limited by pain. PSYCHIATRIC: Appropriate mood and affect; insight and judgment normal. Assessment and Plan Mid back pain, acute onset Association with fevers points to risk of infection, elevated CRP, no leukocytosis Broad coverage with vancomycin and Zosyn IV Elevated CRP and ESR Neurology was consulted by ER physician to assist with workup MRI of brain and C-spine no diskitis. MRI thoracic spine are pending initially refused patient went 12/10 Follow vitals, follow CBC trend Toradol added for pain, continuing Dilaudid, single dose of Solu-Medrol, Flexeril Appreciate neurology consult, Seen by Dr Del Valle. If imaging without signs of infection consider LP to r/o meningitis Antiemetics as need for nausea DVT prophylaxis SCDs until further information is gathered about acute onset back pain Discussed with neuro,. Patient to have MRIs if imaging normal .plan for LP to r. /o poss meningitis?? - Urinary Catheter Management Indwelling Urethral Catheter Cath placed during this visit: no Reason for continuing: Acute urinary retention Results - Labs CBC & Chem 7: 11/07/17 07:50 11/07/17 07:50 Laboratory Results - last 24 hr 11/08/17 19:03 Total Protein (PEP) 7.4 Microbiology 11/07/17 07:45 Blood - Peripheral Aerobic Blood Culture - Preliminary gram negative rods 11/07/17 07:45 Blood - Peripheral Anaerobic Blood Culture - Preliminary gram negative rods 11/07/17 07:50 Blood - Peripheral Aerobic Blood Culture - Preliminary gram negative rods 11/07/17 07:50 Blood - Peripheral Anaerobic Blood Culture - Preliminary gram negative rods - Imaging Impressions Abdomen/Pelvis CT 11/07/17 07:48 CONCLUSION: 1. Nonobstructive bowel gas pattern with moderate amount of stool throughout the colon. No oral contrast was given significantly limiting the visualization of the bowel mesentery in this patient with limited mesenteric fat. 2. The gallbladder is unremarkable in appearance. Lumbar Spine MRI 11/07/17 07:48 CONCLUSION: 1. Patent central canal and neural foramina throughout. 2. No abscess. 3. Facet arthropathy changes at L4-L5 and L5-S1.
--- NOTE | 2017-11-09 11:47 | MR ---
EXAM DATE: 11/09/2017 11:41 AM EDT AGE/SEX: 42 years / Female INDICATIONS: Cephalgia. CLINICAL DATA: This is the patient's subsequent encounter. Patient reports that signs and symptoms h ave been present for 2 days and indicates a pain score of 5/10. MEDICAL/SURGICAL HISTORY: . IVDU. Hysterectomy. section. Ankle. COMPARISON: No prior exams available for comparison. TECHNIQUE: Multiplanar, multisequence examination of the brain was performed without and with 6 ml Ga davist (gadobutrol) contrast as a single exam dose. FINDINGS: Cerebrum: The ventricles are normal for age. No evidence of midline shift, mass lesion, hemorrhage or acute infarction. No extraaxial fluid collections are seen. The pituitary gland and suprasellar cistern are normal in configuration. White Matter: No significant signal abnormalities are seen in the white matter. Posterior Fossa: The cerebellum and brainstem are intact. The 4th ventricle is midline. The cerebel lopontine angle is unremarkable. The cerebellar tonsils are normal in position. Diffusion Imaging: No focal areas of restricted diffusion are seen. No evidence of acute infarction . Extracranial: The visualized portions of the orbits and paranasal sinuses are unremarkable. Post Contrast: No abnormal areas of parenchymal or dural enhancement. No evidence of blood-brain ba rrier breakdown. CONCLUSION: 1. Negative MR Brain with and without contrast. Electronically signed by: Ralph Uribe MD 11/09/2017 11:46 AM EDT
--- NOTE | 2017-11-09 11:50 | MR ---
EXAM DATE: 11/09/2017 11:44 AM EDT AGE/SEX: 42 years / Female INDICATIONS: Pain. CLINICAL DATA: This is the patient's subsequent encounter. Patient reports that signs and symptoms h ave been present for 2 days and indicates a pain score of 6/10. MEDICAL/SURGICAL HISTORY: . IVDU. section. Hysterectomy. Ankle. COMPARISON: No prior exams available for comparison. TECHNIQUE: Multiplanar, multisequence MRI examination of the cervical spine was performed without an d with 6 ml Gadavist (gadobutrol) contrast as a single exam dose. FINDINGS: There is mild degenerative disc disease. Normal alignment. No significant canal or foraminal stenosis . No cord signal abnormality. No prevertebral soft tissue swelling. CONCLUSION: 1. Mild degenerative disc disease. No canal or significant foraminal stenosis. No cord signal abnorm ality. Electronically signed by: Juan Alberto Escobedo MD 11/09/2017 11:49 AM EDT
[2017-11-09] MEDS ORDERED: Gadobutrol PF 7.5 MMOL/7.5 ML Vial (for RAD) IV.SIG ONE (11:58)
--- NOTE | 2017-11-09 12:02 | MR ---
EXAM DATE: 11/09/2017 11:55 AM EDT AGE/SEX: 42 years / Female INDICATIONS: Pain. CLINICAL DATA: This is the patient's initial encounter. Patient reports that signs and symptoms have been present for 1 day and indicates a pain score of 8/10. MEDICAL/SURGICAL HISTORY: . IVDU. Hysterectomy. section. Ankle. COMPARISON: No prior exams available for comparison. TECHNIQUE: Multiplanar, multisequence MRI of the thoracic spine was performed without and with 6 ml Gadavist (gadobutrol) contrast as a single exam dose. FINDINGS: At T6-7 there is a tiny left paracentral disc protrusion with mild encroachment on the left lateral r ecess. No other discrete disc protrusions. There is no canal or significant foraminal stenosis. No co rd impingement or cord signal abnormality. No fracture or spondylolisthesis. CONCLUSION: 1. Small left paracentral disc protrusion at T6-7 with minimal encroachment on the left lateral rece ss. No significant canal or foraminal stenosis. No abnormal enhancement postcontrast. No fracture or spondylolisthesis. Electronically signed by: Juan Alberto Escobedo MD 11/09/2017 12:01 PM EDT
--- NOTE | 2017-11-09 18:13 | P.PNNEU ---
Subjective Subjective Comments: No acute events reported She feels back pain slightly improved, but continues with pain in lumbar area with radiation down BLE Denies JUAREZ Active Medications: Active Medications Acetaminophen (Tylenol) 650 mg PO Q4H PRN PRN Reason: Temp > 100.4 Al Hydroxide/Mg Hydroxide (Milk Of Galindo Lisylvain) 30 ml PO Q12H PRN PRN Reason: Mild Constipation Cyclobenzaprine HCl (Flexeril) 10 mg PO Q8H PRN PRN Reason: SPASM Last Admin: 11/09/17 17:00 Dose: 10 mg Hydromorphone HCl (Dilaudid Pf Inj) 0.5 mg IV.PUSH Q4H PRN PRN Reason: BREAKTHROUGH PAIN Last Admin: 11/08/17 06:18 Dose: 0.5 mg Piperacillin/Tazobactam/Dextrose (Zosyn 3.375 Gm Premix) 50 mls @ 100 mls/hr IV.SIG Q8H [facility] Last Infusion: 11/09/17 13:44 Dose: Infused Vancomycin HCl 1,000 mg/ (Sodium Chloride) 250 mls @ 250 mls/hr IV.SIG Q24H [facility] Last Infusion: 11/09/17 10:16 Dose: Infused Ketorolac Tromethamine (Toradol Inj) 15 mg IV.PUSH Q4H PRN PRN Reason: PAIN SCALE 6 TO 10 Stop: 11/12/17 14:50 Last Admin: 11/09/17 16:56 Dose: 15 mg Metoclopramide HCl (Reglan Inj) 5 mg IV.PUSH Q8H PRN; Protocol PRN Reason: mod to severe nause if not zo Last Admin: 11/08/17 23:22 Dose: 5 mg Ondansetron HCl (Zofran Inj) 4 mg IV.PUSH Q6H PRN PRN Reason: NAUSEA OR VOMITING Last Admin: 11/08/17 17:43 Dose: 4 mg Promethazine HCl (Phenergan) 12.5 mg PO Q6H PRN PRN Reason: nausea if michael PO Temazepam (Restoril) 15 mg PO HS PRN PRN Reason: INSOMNIA Allergies/Adverse Reactions: Allergies Allergy/AdvReac Type Severity Reaction Status Date / Time No Known Allergies Allergy Verified 11/07/17 07:45 Physical Exam Vital signs: Vital Signs 11/08/17 20:00 11/09/17 00:00 11/09/17 07:55 Temperature 100.2 F H 98.3 F 97.9 F Pulse Rate 70 62 72 Respiratory Rate 18 18 16 Blood Pressure 141/86 H 140/79 137/78 Pulse Oximetry 98 99 98 11/09/17 08:00 11/09/17 16:00 Temperature 97.9 F Pulse Rate 77 Respiratory Rate 16 18 Blood Pressure 135/83 Pulse Oximetry 97 Intake & Output 11/08/17 11/09/17 11/09/17 18:59 06:59 18:59 Intake Total 700 / 700 50 / 50 350 / 350 Output Total 1500 / 1500 Balance -800 / -800 50 / 50 350 / 350 Weight 58.9 kg Intake: IV 300 / 300 50 / 50 350 / 350 Zosyn 3.375 GM Premix 50 ML @ 50 / 50 50 / 50 100 / 100 100 mls/hr IV.SIG Q8H [facility] Rx#: [id number] Vancomycin Inj 1,000 MG In NS 250 / 250 250 / 250 Inj 250 ML @ 250 mls/hr IV.SIG Q24H [facility] Rx#:[id number] Oral 400 / 400 Output: Urine Amount (Catheter) 1500 / 1500 Indwelling Urethral Catheter 1500 / 1500 Other: # Incontinent Voids 1 Date of Last Bowel Movement 11/06/17 - Routine Neurological Exam alert, speech normal CN intact MOTOR 5/5 BLE - Urinary Catheter Management Indwelling Urethral Catheter Cath placed during this visit: no Reason for continuing: Acute urinary retention Objective Laboratory Results - last 24 hr 11/08/17 19:03 Total Protein (PEP) 7.4 Rheumatoid Factor Scrn Negative Rheumatoid Factor Titer Not Reportable Microbiology 11/07/17 07:50 Aerobic Blood Culture - Preliminary Blood - Peripheral gram negative rods Anaerobic Blood Culture - Preliminary gram negative rods 11/07/17 07:45 Aerobic Blood Culture - Preliminary Blood - Peripheral gram negative rods Anaerobic Blood Culture - Preliminary gram negative rods Review/Management - Review/Management Plan: lumbar pain--possible related to facet degenerative changes. No sign of diskitis on MRI follow up SPEP Will order bone scan. No sign of meningitis on exam therefore hold off on LP trial of steroids, muscle relaxant
[2017-11-09] MEDS ORDERED: MethylPREDNISolone Sod Succinate Inj 125 MG/2 ML Vial IV.PUSH ONE (18:14)
[2017-11-10] MEDS: Piperacil/Tazo 3.375 GM Premix 50 ML IV.SIG SCH ×2 (04:51→12:55)
[2017-11-10] MEDS: Vancomycin Inj 1,000 MG in Sodium Chlor 0.9% Inj 250 ML IV.SIG SCH (08:42)
[2017-11-10] MEDS: Ketorolac Inj 30 MG/ML (IVP) Vial IV.PUSH PRN ×2 (08:42→21:45)
--- NOTE | 2017-11-10 11:28 | P.PN ---
Physical Exam Vital signs: Vital Signs 11/09/17 16:00 11/09/17 20:00 11/10/17 00:00 Temperature 97.9 F 100.1 F H 98.7 F Pulse Rate 77 75 75 Respiratory Rate 18 12 20 Blood Pressure 135/83 142/90 H 129/72 Pulse Oximetry 97 98 96 11/10/17 04:00 11/10/17 08:00 Temperature 98.7 F 97.5 F L Pulse Rate 72 72 Respiratory Rate 18 24 Blood Pressure 125/68 130/75 Pulse Oximetry 98 99 Intake & Output 11/09/17 11/10/17 11/10/17 18:59 06:59 18:59 Intake Total 350 / 350 1100 / 1100 Output Total 600 / 600 Balance 350 / 350 500 / 500 Weight 58.8 kg Intake: IV 350 / 350 100 / 100 Zosyn 3.375 GM Premix 50 ML @ 100 / 100 100 / 100 100 mls/hr IV.SIG Q8H [facility] Rx#: [id number] Vancomycin Inj 1,000 MG In NS 250 / 250 Inj 250 ML @ 250 mls/hr IV.SIG Q24H [facility] Rx#:[id number] Oral 1000 / 1000 Output: Urine 600 / 600 Narrative: Subjective Nausea better controlled. No more vomiting. With lower back pain start on gabapentin Blood cultures are positive 4/4 repeat blood cx and consult ID No new motor deficit. Feels tired and is somnolent, not interacting much. Follows some commands. No change in vision. No fever or chills. Refused MRIs yesterday she went for MRIs today Physical exam GENERAL: AAOx3, in distress from pain, physically fit CARDIOVASCULAR: Tachycardia. No murmur, no gallops, no rubs. RESPIRATORY: Clear and equal to auscultation bilaterally. No crackles, no wheezes. No accessory muscle use. GASTROINTESTINAL: Abdomen soft, non-tender, nondistended, normal active bowel sounds. Hepatic and splenic margins not palpable. MUSCULOSKELETAL: Extremities without clubbing or cyanosis. No obvious deformities. No edema. NEUROLOGICAL: Awake and alert. No obvious cranial nerve deficits. Motor grossly within normal limits. No focal deficits. Five out of 5 muscle strength in the arms and legs. Normal speech. Exam limited by pain. PSYCHIATRIC: Appropriate mood and affect; insight and judgment normal. Assessment and Plan Mid back pain, acute onset Association with fevers points to risk of infection, elevated CRP, no leukocytosis Blood cultures with serration , repeat bolld cx , consult ID On IV abx vancomycin and Zosyn IV Elevated CRP and ESR Neurology was consulted by ER physician to assist with workup MRI of brain and C-spine no diskitis. MRI thoracic spine are pending initially refused patient went 12/10 Follow vitals, follow CBC trend Toradol added for pain, continuing Dilaudid, single dose of Solu-Medrol, Flexeril Appreciate neurology consult, Seen by Dr Del Valle. If imaging without signs of infection consider LP to r/o meningitis Antiemetics as need for nausea Add gabapentin and also on baclofen DVT prophylaxis SCDs until further information is gathered about acute onset back pain Discussed with neuro,. Patient to have MRIs if imaging normal .plan for LP to r. /o poss meningitis?? Patient with bacteremia. Consult ID - Urinary Catheter Management Indwelling Urethral Catheter Cath placed during this visit: yes, but has since been removed by the nurse Reason for continuing: Decision to DC catheter Removal date: 11/10/17 Removal time: 11:12 Results - Labs CBC & Chem 7: 11/10/17 12:19 11/10/17 12:19 Laboratory Results - last 24 hr 11/08/17 19:03 Total Protein (PEP) 7.4 Rheumatoid Factor Scrn Negative Microbiology 11/07/17 07:50 Blood - Peripheral Aerobic Blood Culture - Final Serratia marcescens 11/07/17 07:50 Blood - Peripheral Anaerobic Blood Culture - Final Serratia marcescens 11/07/17 07:45 Blood - Peripheral Aerobic Blood Culture - Final Serratia marcescens 11/07/17 07:45 Blood - Peripheral Anaerobic Blood Culture - Final Serratia marcescens - Imaging Impressions Thoracic Spine MRI 11/09/17 00:00 CONCLUSION: 1. Small left paracentral disc protrusion at T6-7 with minimal encroachment on the left lateral recess. No significant canal or foraminal stenosis. No abnormal enhancement postcontrast. No fracture or spondylolisthesis. Cervical Spine MRI 11/09/17 12:35 CONCLUSION: 1. Mild degenerative disc disease. No canal or significant foraminal stenosis. No cord signal abnormality. Head MRI 11/09/17 12:35 CONCLUSION: 1. Negative MR Brain with and without contrast.
[2017-11-10] MEDS: Gabapentin 100 MG Capsule PO SCH ×2 (12:55→17:28)
[2017-11-10 13:32] LABS: Baso % (Auto) 0.5 % (0.0-2.0); Eos % (Auto) 0.1 % (0.0-4.0); Hematocrit 36.2 % (35.0-46.0); Hemoglobin 12.7 gm/dL (11.6-15.3); Lymph # (Auto) 0.9 th/mm3 (1.0-4.8); Mean Corpuscular Hemoglobin 28.6 pg (27.0-34.0); Mean Corpuscular Volume 81.9 fL (80.0-100.0); Mean Platelet Volume 7.8 fL (7.0-11.0); Mono # (Auto) 0.4 th/mm3 (0.0-0.9); Mono % (Auto) 4.1 % (0.0-8.0); Neut # (Auto) 7.9 th/mm3 (1.8-7.7); Neut % (Auto) 85.3 % (16.0-70.0); Platelet Count 238 th/mm3 (150-450); Red Blood Count 4.42 mil/mm3 (4.00-5.30); Red Cell Distribution Width 14.2 % (11.6-17.2); White Blood Count 9.2 th/mm3 (4.0-11.0)
[2017-11-10 14:03] LABS: Alanine Aminotransferase 16 U/L (10-53); Albumin 2.7 g/dL (3.4-5.0); Anion Gap 10 meq/L (5-15); Aspartate Aminotransferase 11 U/L (15-37); Blood Urea Nitrogen 22 mg/dL (7-18); Calcium 8.5 mg/dL (8.5-10.1); Carbon Dioxide 25.7 meq/L (21.0-32.0); Chloride 101 meq/L (98-107); Glomerular Filtration Rate Greater Than 89 mL/min (>89); Glucose,Random 111 mg/dL (74-106); Potassium 3.4 meq/L (3.5-5.1); Sodium 137 meq/L (136-145)
[2017-11-10 14:26] LABS: Alkaline Phosphatase 75 U/L (45-117); Total Protein 6.9 g/dL (6.4-8.2)
--- NOTE | 2017-11-10 20:50 | P.CONID ---
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 Neurophil count wnl Pt denies current drug use, but acknowledged IVDU 6-7 yrs ago fever resolved Review of Systems All other systems reviewed negative except as stated in HPI PMFSH - History History Provided By: Patient - Medical History Medical History: Medical History (Last Reviewed 11/11/17 @ 08:42 by Georgette Mendez MD) Patient denies medical problems - Surgical History Surgical History: Surgical History (Last Reviewed 11/11/17 @ 08:42 by Georgette Mendez MD) History of No history of previous surgery - Tobacco History Second Hand Smoke Exposure: Yes Tobacco Use In Past 30 Days: Yes Smoking Status: Current every day smoker Tobacco Type: Cigarettes - Alcohol History How Often Do You Have a Drink Containing Alcohol: Monthly or less - Substance Use History Substance History: No History of Abuse - Travel History Recent Travel in the [place] Within the Last 8 Weeks: No Recent Travel Out of the Country Within the Last 8 Weeks: No - Immunization History Tetanus Immunization: Unsure Hx Influenza Vaccine This Season: No Medications and Allergies Active Medications: Active Medications Acetaminophen (Tylenol) 650 mg PO Q4H PRN PRN Reason: Temp > 100.4 Al Hydroxide/Mg Hydroxide (Milk Of Magnesia Liq) 30 ml PO Q12H PRN PRN Reason: Mild Constipation Cyclobenzaprine HCl (Flexeril) 10 mg PO Q8H PRN PRN Reason: SPASM Last Admin: 11/09/17 17:00 Dose: 10 mg Gabapentin (Neurontin) 100 mg PO TID [facility] Last Admin: 11/10/17 17:28 Dose: 100 mg Hydromorphone HCl (Dilaudid Pf Inj) 0.5 mg IV.PUSH Q4H PRN PRN Reason: BREAKTHROUGH PAIN Last Admin: 11/08/17 06:18 Dose: 0.5 mg Cefepime HCl 2,000 mg/ Sodium (Chloride) 100 mls @ 200 mls/hr IV.SIG Q8H [facility] Last Admin: 11/10/17 20:42 Dose: 200 mls/hr Levofloxacin/Dextrose (Levaquin 750 Mg Premix Inj) 150 mls @ 100 mls/hr IV.SIG Q24H [facility] Ketorolac Tromethamine (Toradol Inj) 15 mg IV.PUSH Q4H PRN PRN Reason: PAIN SCALE 6 TO 10 Stop: 11/12/17 14:50 Last Admin: 11/10/17 08:42 Dose: 15 mg Metoclopramide HCl (Reglan Inj) 5 mg IV.PUSH Q8H PRN; Protocol PRN Reason: mod to severe nause if not zo Last Admin: 11/08/17 23:22 Dose: 5 mg Ondansetron HCl (Zofran Inj) 4 mg IV.PUSH Q6H PRN PRN Reason: NAUSEA OR VOMITING Last Admin: 11/08/17 17:43 Dose: 4 mg Promethazine HCl (Phenergan) 12.5 mg PO Q6H PRN PRN Reason: nausea if michael PO Temazepam (Restoril) 15 mg PO HS PRN PRN Reason: INSOMNIA Tizanidine HCl (Zanaflex) 4 mg PO Q8H PRN PRN Reason: PAIN SCALE 4 TO 6 MODERATE Last Admin: 11/10/17 17:28 Dose: 4 mg Allergies Allergy/AdvReac Type Severity Reaction Status Date / Time No Known Allergies Allergy Verified 11/07/17 07:45 Home Medications Medication Instructions Recorded Confirmed Type No Known Home Medications 11/07/17 11/07/17 History Exam Vital signs: Vital Signs 11/10/17 00:00 11/10/17 04:00 11/10/17 08:00 Temperature 98.7 F 98.7 F 97.5 F L Pulse Rate 75 72 72 Respiratory Rate 20 18 24 Blood Pressure 129/72 125/68 130/75 Pulse Oximetry 96 98 99 11/10/17 12:00 11/10/17 16:00 Temperature 97.8 F 98.3 F Pulse Rate 75 80 Respiratory Rate 23 23 Blood Pressure 137/84 130/85 Pulse Oximetry 96 97 Intake & Output 11/10/17 11/10/17 11/11/17 06:59 18:59 06:59 Intake Total 1100 / 1100 1200 / 1200 Output Total 600 / 600 325 / 325 Balance 500 / 500 875 / 875 Weight 58.8 kg Intake: IV 100 / 100 300 / 300 Zosyn 3.375 GM Premix 50 ML @ 100 / 100 50 / 50 100 mls/hr IV.SIG Q8H [facility] Rx#: [id number] Vancomycin Inj 1,000 MG In NS 250 / 250 Inj 250 ML @ 250 mls/hr IV.SIG Q24H [facility] Rx#:[id number] Oral 1000 / 1000 900 / 900 Output: Urine 600 / 600 Urine Amount (Catheter) 325 / 325 Indwelling Urethral Catheter 325 / 325 Other: # Voids 2 # Bowel Movements 1 - Constitutional no acute distress, average body habitus - Routine HEENT Exam Head: Present: normocephalic, atraumatic Eye: Present: EOMI, PERRL ENT: Present: mucous membranes moist, oropharynx clear, dentition normal - Routine Neck Exam Present: supple, full ROM - Routine Respiratory Exam Present: CTA bilaterally Comments: good effort - Routine Cardiovascular Exam Present: RRR, S1, S2 - Routine Abdominal Exam Present: soft, normoactive bowel sounds - Routine Extremities Exam Comments: no cyanosis clubbing or edema - Routine Back/Spine/Pelvis Exam Back/Spine: Present: full ROM, paraspinal tenderness (lower lumbar area) - Routine Neurological Exam Present: alert, oriented X3, CN II-XII intact, moving all extremities, vision grossly intact, hearing grossly intact, normal speech - Routine Psychiatric Exam Present: normal affect, normal thought process, cooperative Results - Labs CBC & Chem 7: 11/10/17 12:19 11/10/17 12:19 Labs: Laboratory Results - last 24 hr 11/08/17 11/10/17 11/10/17 19:03 12:19 12:19 WBC 9.2 RBC 4.42 Hgb 12.7 Hct 36.2 MCV 81.9 MCH 28.6 MCHC 35.0 RDW 14.2 Plt Count 238 MPV 7.8 Neut % (Auto) 85.3 H Lymph % (Auto) 10.0 Allen % (Auto) 4.1 Eos % (Auto) 0.1 Baso % (Auto) 0.5 Neut # (Auto) 7.9 H Lymph # (Auto) 0.9 L Allen # (Auto) 0.4 Eos # (Auto) 0.0 Baso # (Auto) 0.0 WBC Differential . Differential Comment Auto diff final Sodium 137 Potassium 3.4 L Chloride 101 Carbon Dioxide 25.7 Anion Gap 10 BUN 22 H Creatinine 0.71 Estimated GFR Greater than 89 Random Glucose 111 H Calcium 8.5 Total Bilirubin 0.2 AST 11 L ALT 16 Alkaline Phosphatase 75 Total Protein 6.9 D Total Protein (PEP) Cancelled Albumin 2.7 L Albumin (PEP) Cancelled Albumin/Globulin Ratio Cancelled Illqt-9-Faizzvvby Cancelled Hbxli-7-Ykibsiltb Cancelled Beta Globulins Cancelled Gamma Globulins Cancelled PEP Pathologist Comment Cancelled Rheumatoid Factor Scrn Negative 11/10/17 12:19 WBC RBC Hgb Hct MCV MCH MCHC RDW Plt Count MPV Neut % (Auto) Lymph % (Auto) Allen % (Auto) Eos % (Auto) Baso % (Auto) Neut # (Auto) Lymph # (Auto) Allen # (Auto) Eos # (Auto) Baso # (Auto) WBC Differential Differential Comment Sodium Potassium Chloride Carbon Dioxide Anion Gap BUN Creatinine Estimated GFR Random Glucose Calcium Total Bilirubin AST ALT Alkaline Phosphatase Total Protein Total Protein (PEP) 6.9 Albumin Albumin (PEP) Albumin/Globulin Ratio Xhhez-2-Afpmvwrei Bmoxq-7-Vqpjapela Beta Globulins Gamma Globulins PEP Pathologist Comment Rheumatoid Factor Scrn - Imaging Abdomen/Pelvis CT 11/07/17 07:48 CONCLUSION: 1. Nonobstructive bowel gas pattern with moderate amount of stool throughout the colon. No oral contrast was given significantly limiting the visualization of the bowel mesentery in this patient with limited mesenteric fat. 2. The gallbladder is unremarkable in appearance. Lumbar Spine MRI 11/07/17 07:48 CONCLUSION: 1. Patent central canal and neural foramina throughout. 2. No abscess. 3. Facet arthropathy changes at L4-L5 and L5-S1. Thoracic Spine MRI 11/09/17 00:00 CONCLUSION: 1. Small left paracentral disc protrusion at T6-7 with minimal encroachment on the left lateral recess. No significant canal or foraminal stenosis. No abnormal enhancement postcontrast. No fracture or spondylolisthesis. Cervical Spine MRI 11/09/17 12:35 CONCLUSION: 1. Mild degenerative disc disease. No canal or significant foraminal stenosis. No cord signal abnormality. Head MRI 11/09/17 12:35 CONCLUSION: 1. Negative MR Brain with and without contrast. Assessment and Plan - Plan HIgh grade Serratia bacteremia Lower back pain, she clearly localising towards lower back ? Early osteo, diskitis of L spine 2 D echo negative ? additional imaging studies will consider KRISTEL if no findings of vertebral infection on additional imaging change abx to cefepime, levaquine
--- NOTE | 2017-11-11 08:31 | P.PN ---
Physical Exam Vital signs: Vital Signs 11/10/17 12:00 11/10/17 16:00 11/11/17 00:00 Temperature 97.8 F 98.3 F 98.8 F Pulse Rate 75 80 74 Respiratory Rate 23 23 18 Blood Pressure 137/84 130/85 130/74 Pulse Oximetry 96 97 98 11/11/17 01:53 Temperature 99.6 F Pulse Rate 78 Respiratory Rate 18 Blood Pressure 151/95 H Pulse Oximetry 98 Intake & Output 11/10/17 11/11/17 11/11/17 18:59 06:59 18:59 Intake Total 1200 / 1200 250 / 250 Output Total 325 / 325 Balance 875 / 875 250 / 250 Intake: IV 300 / 300 250 / 250 Maxipime Inj 2,000 MG In NS Inj 100 / 100 100 ML @ 200 mls/hr IV.SIG Q8H [facility] Rx#:[id number] Levaquin 750 mg Premix Inj 150 150 / 150 ML @ 100 mls/hr IV.SIG Q24H [facility] Rx#:[id number] Zosyn 3.375 GM Premix 50 ML @ 50 / 50 100 mls/hr IV.SIG Q8H [facility] Rx#: [id number] Vancomycin Inj 1,000 MG In NS 250 / 250 Inj 250 ML @ 250 mls/hr IV.SIG Q24H [facility] Rx#:[id number] Oral 900 / 900 Output: Urine Amount (Catheter) 325 / 325 Indwelling Urethral Catheter 325 / 325 Other: # Voids 2 3 # Bowel Movements 1 Narrative: Subjective No more nausea or vomiting. Not eating much. With lower back pain started on gabapentin. Patient still with back pain. Blood cultures are positive / repeat blood cx and consulted ID and ff. Repeat blood cultures are pending. Plan for MRI on Sunday discussed with Dr. Mendez infectious disease No new motor deficit. Feels tired and is somnolent. Follows some commands. No change in vision. No fever or chills. Physical exam GENERAL: AAOx3, in distress from pain, physically fit CARDIOVASCULAR: Tachycardia. No murmur, no gallops, no rubs. RESPIRATORY: Clear and equal to auscultation bilaterally. No crackles, no wheezes. No accessory muscle use. GASTROINTESTINAL: Abdomen soft, non-tender, nondistended, normal active bowel sounds. Hepatic and splenic margins not palpable. MUSCULOSKELETAL: Extremities without clubbing or cyanosis. No obvious deformities. No edema. NEUROLOGICAL: Awake and alert. No obvious cranial nerve deficits. Motor grossly within normal limits. No focal deficits. Five out of 5 muscle strength in the arms and legs. Normal speech. Exam limited by pain. PSYCHIATRIC: Appropriate mood and affect; insight and judgment normal. Assessment and Plan Mid back pain, acute onset Association with fevers points to risk of infection, elevated CRP, no leukocytosis Blood cultures with serration , repeat bolld cx , consult ID On IV abx vancomycin and Zosyn IV Elevated CRP and ESR Neurology was consulted by ER physician to assist with workup MRI of brain and C-spine no diskitis. MRI thoracic spine are pending initially refused patient went 12/10 Follow vitals, follow CBC trend Toradol added for pain, continuing Dilaudid, single dose of Solu-Medrol, Flexeril Appreciate neurology consult, Seen by Dr Del Valle. If imaging without signs of infection consider LP to r/o meningitis Antiemetics as need for nausea Add gabapentin and also on baclofen DVT prophylaxis SCDs until further information is gathered about acute onset back pain Discussed with neuro,. Patient to have MRIs if imaging normal .plan for LP to r. /o poss meningitis?? Patient with bacteremia. Consult ID Blood cultures positive 07/04. Repeat blood cultures are pending. Plan for MRI back on Sunday discussed with Dr. Mendez infectious disease. - Urinary Catheter Management Indwelling Urethral Catheter Cath placed during this visit: yes, but has since been removed by the nurse Reason for continuing: Decision to DC catheter Removal date: 11/10/17 Removal time: 11:12 Results - Labs CBC & Chem 7: 11/10/17 12:19 11/10/17 12:19 Laboratory Results - last 24 hr 11/08/17 11/10/17 11/10/17 19:03 12:19 12:19 WBC 9.2 RBC 4.42 Hgb 12.7 Hct 36.2 MCV 81.9 MCH 28.6 MCHC 35.0 RDW 14.2 Plt Count 238 MPV 7.8 Neut % (Auto) 85.3 H Lymph % (Auto) 10.0 [place] % (Auto) 4.1 Eos % (Auto) 0.1 Baso % (Auto) 0.5 Neut # (Auto) 7.9 H Lymph # (Auto) 0.9 L [place] # (Auto) 0.4 Eos # (Auto) 0.0 Baso # (Auto) 0.0 WBC Differential . Differential Comment Auto diff final Sodium 137 Potassium 3.4 L Chloride 101 Carbon Dioxide 25.7 Anion Gap 10 BUN 22 H Creatinine 0.71 Estimated GFR Greater than 89 Random Glucose 111 H Calcium 8.5 Total Bilirubin 0.2 AST 11 L ALT 16 Alkaline Phosphatase 75 Total Protein 6.9 D Total Protein (PEP) Cancelled Albumin 2.7 L Albumin (PEP) Cancelled Albumin/Globulin Ratio Cancelled Hdagc-3-Manpqqevf Cancelled Dojxg-5-Bsbhuieil Cancelled Beta Globulins Cancelled Gamma Globulins Cancelled PEP Pathologist Comment Cancelled Rheumatoid Factor Scrn Negative 11/10/17 12:19 WBC RBC Hgb Hct MCV MCH MCHC RDW Plt Count MPV Neut % (Auto) Lymph % (Auto) [place] % (Auto) Eos % (Auto) Baso % (Auto) Neut # (Auto) Lymph # (Auto) [place] # (Auto) Eos # (Auto) Baso # (Auto) WBC Differential Differential Comment Sodium Potassium Chloride Carbon Dioxide Anion Gap BUN Creatinine Estimated GFR Random Glucose Calcium Total Bilirubin AST ALT Alkaline Phosphatase Total Protein Total Protein (PEP) 6.9 Albumin Albumin (PEP) Albumin/Globulin Ratio Xvyiy-4-Qsnxsdjoq Azasf-6-Jksbxmcox Beta Globulins Gamma Globulins PEP Pathologist Comment Rheumatoid Factor Scrn Microbiology 11/07/17 07:50 Blood - Peripheral Aerobic Blood Culture - Final Serratia marcescens 11/07/17 07:50 Blood - Peripheral Anaerobic Blood Culture - Final Serratia marcescens 11/07/17 07:45 Blood - Peripheral Aerobic Blood Culture - Final Serratia marcescens 11/07/17 07:45 Blood - Peripheral Anaerobic Blood Culture - Final Serratia marcescens
[2017-11-11] MEDS: Ketorolac Inj 30 MG/ML (IVP) Vial IV.PUSH PRN ×3 (09:50→23:06)
[2017-11-11] MEDS: Gabapentin 100 MG Capsule PO SCH ×3 (09:53→18:19)
[2017-11-11] MEDS: HYDROmorphone PF Inj 2 MG/ML Vial IV.PUSH PRN ×2 (11:35→21:35)
--- NOTE | 2017-11-11 14:25 | P.PNADD ---
Addendum to Inpatient Note Additional information: dw radiologist Might not show signs of infection at her initial MRI will repeat MRI with and w/o contrast on sunday arleen Ramsey
[2017-11-11 21:05] LABS: Baso % (Auto) 0.1 % (0.0-2.0); Eos % (Auto) 0.1 % (0.0-4.0); Hematocrit 36.5 % (35.0-46.0); Hemoglobin 12.3 gm/dL (11.6-15.3); Lymph # (Auto) 0.8 th/mm3 (1.0-4.8); Lymph % (Auto) 10.4 % (9.0-44.0); Mean Corpuscular HGB Conc 33.6 % (32.0-36.0); Mean Corpuscular Hemoglobin 27.8 pg (27.0-34.0); Mean Corpuscular Volume 82.8 fL (80.0-100.0); Mean Platelet Volume 7.1 fL (7.0-11.0); Mono # (Auto) 0.4 th/mm3 (0.0-0.9); Mono % (Auto) 4.8 % (0.0-8.0); Neut # (Auto) 6.5 th/mm3 (1.8-7.7); Neut % (Auto) 84.6 % (16.0-70.0); Platelet Count 205 th/mm3 (150-450); Red Blood Count 4.41 mil/mm3 (4.00-5.30); Red Cell Distribution Width 13.7 % (11.6-17.2); White Blood Count 7.7 th/mm3 (4.0-11.0)
[2017-11-11 21:31] LABS: Calcium 8.4 mg/dL (8.5-10.1); Potassium 3.4 meq/L (3.5-5.1)
[2017-11-12] MEDS: HYDROmorphone PF Inj 2 MG/ML Vial IV.PUSH PRN ×6 (01:31→21:29)
[2017-11-12] MEDS: Ketorolac Inj 30 MG/ML (IVP) Vial IV.PUSH PRN ×3 (04:19→12:26)
--- NOTE | 2017-11-12 08:07 | P.PN ---
Subjective Interval history: Follow-up on patient with bacteremia. Patient seen and examined. Patient continues to complain of low back pain and states it is hurting a bit more today due to working with physical therapy and going down for her bone scan. She denies any fever chills. She states that numbness and tingling in her bilateral lower extremes has improved. Physical Exam Vital signs: Vital Signs 11/11/17 12:00 11/11/17 16:00 11/11/17 20:00 Temperature 98.2 F 99 F 98.1 F Pulse Rate 67 76 75 Respiratory Rate 22 22 18 Blood Pressure 162/89 H 150/95 H 128/75 Pulse Oximetry 99 98 97 11/12/17 00:00 Temperature 98 F Pulse Rate 72 Respiratory Rate 18 Blood Pressure 126/73 Pulse Oximetry 96 Intake & Output 11/11/17 11/12/17 11/12/17 18:59 06:59 18:59 Intake Total 700 / 700 350 / 350 Balance 700 / 700 350 / 350 Intake: IV 100 / 100 350 / 350 Maxipime Inj 2,000 MG In NS Inj 100 / 100 200 / 200 100 ML @ 200 mls/hr IV.SIG Q8H [facility] Rx#:[id number] Levaquin 750 mg Premix Inj 150 150 / 150 ML @ 100 mls/hr IV.SIG Q24H [facility] Rx#:[id number] Oral 600 / 600 Other: # Voids 3 # Bowel Movements 1 Narrative: GENERAL: WDWN female, INAD. Awake and alert. Oriented x 4. SKIN: Warm and dry. HEAD: Atraumatic. Normocephalic. EYES: Pupils equal and round. No scleral icterus. No injection or drainage. ENT: No nasal bleeding or discharge. Mucous membranes pink and moist. NECK: Trachea midline. CARDIOVASCULAR: Regular rate and rhythm. No murmur appreciated. RESPIRATORY: No accessory muscle use. Clear to auscultation. Breath sounds equal bilaterally. GASTROINTESTINAL: Abdomen soft, non-tender, nondistended. Hepatic and splenic margins not palpable. MUSCULOSKELETAL: Extremities without clubbing, cyanosis, or edema. No obvious deformities. NEUROLOGICAL: Awake and alert. No obvious cranial nerve deficits. Motor grossly within normal limits. Normal speech. PSYCHIATRIC: Appropriate mood and affect; insight and judgment normal. - Urinary Catheter Management Indwelling Urethral Catheter Cath placed during this visit: yes, but has since been removed by the nurse Reason for continuing: Decision to DC catheter Removal date: 11/10/17 Removal time: 11:12 Results - Labs CBC & Chem 7: 11/11/17 20:27 11/12/17 12:22 Laboratory Results - last 24 hr 11/11/17 11/11/17 20:27 20:27 WBC 7.7 RBC 4.41 Hgb 12.3 Hct 36.5 MCV 82.8 MCH 27.8 MCHC 33.6 RDW 13.7 Plt Count 205 MPV 7.1 Neut % (Auto) 84.6 H Lymph % (Auto) 10.4 Tucker % (Auto) 4.8 Eos % (Auto) 0.1 Baso % (Auto) 0.1 Neut # (Auto) 6.5 Lymph # (Auto) 0.8 L Tucker # (Auto) 0.4 Eos # (Auto) 0.0 Baso # (Auto) 0.0 WBC Differential . Differential Comment Auto diff final Sodium 137 Potassium 3.4 L Chloride 101 Carbon Dioxide 26.0 Anion Gap 10 BUN 16 Creatinine 0.82 Estimated GFR 76 L Random Glucose 117 H Calcium 8.4 L - Imaging ITS Impressions Abdomen/Pelvis CT 11/07/17 07:48 CONCLUSION: 1. Nonobstructive bowel gas pattern with moderate amount of stool throughout the colon. No oral contrast was given significantly limiting the visualization of the bowel mesentery in this patient with limited mesenteric fat. 2. The gallbladder is unremarkable in appearance. Lumbar Spine MRI 11/07/17 07:48 CONCLUSION: 1. Patent central canal and neural foramina throughout. 2. No abscess. 3. Facet arthropathy changes at L4-L5 and L5-S1. Thoracic Spine MRI 11/09/17 00:00 CONCLUSION: 1. Small left paracentral disc protrusion at T6-7 with minimal encroachment on the left lateral recess. No significant canal or foraminal stenosis. No abnormal enhancement postcontrast. No fracture or spondylolisthesis. Cervical Spine MRI 11/09/17 12:35 CONCLUSION: 1. Mild degenerative disc disease. No canal or significant foraminal stenosis. No cord signal abnormality. Head MRI 11/09/17 12:35 CONCLUSION: 1. Negative MR Brain with and without contrast. SPECT Scan-Bone NM 11/12/17 00:00 CONCLUSION: 1. Pars defect L5-S1. 2. There is section CT with oblique reconstructions could help confirm if this remains symptomatic. 3. I do not see evidence for inflammatory process. Assessment and Plan - Plan 42-year-old female who denies any chronic medical issues that presents with excruciating pain to her mid back. 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 ?early osteo. Bone scan ordered. Plan to repeat MRI on Sunday. Continue on IV abx Levaquin and Cefepime per ID repeat BCX with no growth to date, continue to follow until finalized Back pain, acute onset Association with fevers points to risk of infection, elevated CRP, no leukocytosis Blood cultures with serratia marcescens Elevated CRP and ESR Imaging negative for discitis/osteomyelitis. F/U bone scan pending. Appreciate neurology consult, seen by Dr Del Valle. If imaging without signs of infection consider LP to r/o meningitis Continue gabapentin Continue pain management Continue with PT DVT prophylaxis SCDs until further information is gathered about acute onset back pain Code Status: FULL Discussed Condition With: patient, nursing staff, Dr. Baron Discharge Planning: Not ready for discharge. Workup in progress. Will need ID and neurology clearance.
[2017-11-12] MEDS: Gabapentin 100 MG Capsule PO SCH ×3 (08:22→17:00)
[2017-11-12 13:28] LABS: Anion Gap 7 meq/L (5-15); Blood Urea Nitrogen 15 mg/dL (7-18); Calcium 8.3 mg/dL (8.5-10.1); Carbon Dioxide 26.5 meq/L (21.0-32.0); Chloride 103 meq/L (98-107); Glomerular Filtration Rate Greater Than 89 mL/min (>89); Glucose,Random 95 mg/dL (74-106); Magnesium 2.1 mg/dL (1.5-2.5); Potassium 3.7 meq/L (3.5-5.1); Sodium 136 meq/L (136-145)
--- NOTE | 2017-11-12 16:05 | NM ---
EXAM DATE: 11/12/2017 2:41 PM EDT AGE/SEX: 42 years / Female INDICATIONS: Back pain for one week. Infection. CLINICAL DATA: This is the patient's initial encounter. Patient reports that signs and symptoms have been present for 1 week and indicates a pain score of 8/10. MEDICAL/SURGICAL HISTORY: None. section. Hysterectomy. [place] [facility] [place] & W/O [place]AST[place] 11/07/2017. . No external comparison. TECHNIQUE: . Whole body blood pool imaging was performed after injection of radiotracer.. Whole bod y bone scan was performed at 2-3 hours post-injection. SPECT imaging was also performed. No correlative bone scan available for comparison. DOSE: 30.1 mCi Tc99m MDP IV IMAGING: SPECT/CT imaging with fusion was performed. RADIATION DOSE: 3.40 CTDIvol(mGy) FINDINGS: There is a pars defect L5-S1 prominent on the right with degenerative changes on the left. There is v eugenie minimal anterolisthesis of L5 on S1. There is minimal asymmetrical uptake more prominent on the l eft than the right of believe is related to this pars defect. Bony uptake would suggest an acute injury to this area with reactive bone. I do not see evidence for inflammatory process. CONCLUSION: 1. Pars defect L5-S1. 2. There is section CT with oblique reconstructions could help confirm if this remains symptomatic. 3. I do not see evidence for inflammatory process. Electronically signed by: Jesus Butler MD 11/12/2017 4:04 PM EDT
--- NOTE | 2017-11-12 17:23 | ECHRPT ---
Indication: POSS SEPSIS, ENDOCARDITIS CONCLUSIONS The left ventricular systolic function is normal with an estimated ejection fraction in the range of 55-60%. Trace mitral valve regurgitation. There is trace tricuspid valve regurgitation. BP: / HR: Rhythm: Sinus MEASUREMENTS (Male / Female) Normal Values Technical Quality:Fair 2D ECHO LV Diastolic Diameter PLAX 4.4 cm 4.2 - 5.9 / 3.9 - 5.3 cm LV Systolic Diameter PLAX 3.3 cm IVS Diastolic Thickness 1.0 cm 0.6 - 1.0 / 0.6 - 0.9 cm LVPW Diastolic Thickness 1.0 cm 0.6 - 1.0 / 0.6 - 0.9 cm LV Relative Wall Thickness 0.5 RV Internal Dim ED PLAX 2.9 cm LVOT Diameter 2.5 cm Aortic Root Diameter 3.2 cm LA Systolic Diameter LX 3.2 cm 3.0 - 4.0 / 2.7 - 3.8 cm M-MODE AV Cusp Separation MM 2.0 cm DOPPLER AV Peak Velocity 101.0 cm/s AV Peak Gradient 4.1 mmHg AV Mean Gradient 2.0 mmHg AV Velocity Time Integral 20.1 cm LVOT Peak Velocity 84.2 cm/s LVOT Peak Gradient 2.8 mmHg LVOT Velocity Time Integral 16.6 cm AV Area Cont Eq vti 4.1 cm AV Area Cont Eq pk 4.1 cm Mitral E Point Velocity 77.5 cm/s Mitral A Point Velocity 61.7 cm/s Mitral E to A Ratio 1.3 LV E' Lateral Velocity 10.7 cm/s Mitral E to LV E' Lateral Ratio 7.2 LV E' Septal Velocity 8.1 cm/s Mitral E to LV E' Septal Ratio 9.6 TR Peak Velocity 238.0 cm/s TR Peak Gradient 22.7 mmHg Right Atrial Pressure 10.0 mmHg Pulmonary Artery Systolic Pressu 32.7 mmHg Right Ventricular Systolic Press 32.7 mmHg PV Peak Velocity 62.4 cm/s PV Peak Gradient 1.6 mmHg FINDINGS LEFT VENTRICLE Normal left ventricular size. Wall thickness is normal. The left ventricular systolic function is normal with an estimated ejection fraction in the range of 55-60%. No regional wall motion abnormalities are present. RIGHT VENTRICLE Normal right ventricular size and systolic function. LEFT ATRIUM The left atrial size is normal. RIGHT ATRIUM The right atrial size is normal. ATRIAL SEPTUM No atrial level shunt is demonstrated by color flow Doppler interrogation. AORTA The aortic root and proximal ascending aorta are normal in size on limited imaging. MITRAL VALVE Trace mitral valve regurgitation. Mitral valve is grossly normal AORTIC VALVE Trileaflet aortic valve. No aortic valve stenosis or regurgitation. TRICUSPID VALVE There is trace tricuspid valve regurgitation. The estimated pulmonary arterial pressure is 32.7 mmHg. PULMONARY VALVE No pulmonary valve regurgitation or stenosis. VESSELS The inferior vena cava is normal in size. PERICARDIUM No pericardial effusion. Jrodan Lima DO (Electronically Signed) Final Date:12 November 2017 17:22
[2017-11-13] MEDS: Temazepam 15 MG Capsule PO PRN ×2 (01:15→23:06)
[2017-11-13] MEDS: HYDROmorphone PF Inj 2 MG/ML Vial IV.PUSH PRN ×6 (07:59→22:50)
[2017-11-13] MEDS: Gabapentin 100 MG Capsule PO SCH ×3 (08:02→17:00)
--- NOTE | 2017-11-13 12:27 | P.PN ---
Subjective Interval history: Follow-up on patient with bacteremia. Patient seen and examined. Patient states she was much improved yesterday. However, patient lost IV access late yesterday missed a dose of antibiotics as well as pain medication. She is complaining of increased back pain and numbness/tingling in both feet. She denies any fever or chills. She denies any chest pain or shortness of breath. She denies any nausea, vomiting or abdominal pain. Patient denies any complaints of back pain prior to just before admission. Physical Exam Vital signs: Vital Signs 11/12/17 15:58 11/12/17 20:00 11/13/17 00:00 Temperature 98.2 F 99.0 F 99.0 F Pulse Rate 72 81 78 Respiratory Rate 19 19 18 Blood Pressure 116/90 148/80 H 150/90 H Pulse Oximetry 96 11/13/17 04:00 11/13/17 08:00 Temperature 98.6 F 98.5 F Pulse Rate 86 99 H Respiratory Rate 18 Blood Pressure 146/93 H 180/110 H Pulse Oximetry 96 97 Intake & Output 11/12/17 11/13/17 11/13/17 18:59 06:59 18:59 Intake Total 340 / 340 250 / 250 Output Total 400 / 400 Balance -60 / -60 250 / 250 Intake: IV 100 / 100 250 / 250 Maxipime Inj 2,000 MG In NS Inj 100 / 100 100 / 100 100 ML @ 200 mls/hr IV.SIG Q8H [facility] Rx#:[id number] Levaquin 750 mg Premix Inj 150 150 / 150 ML @ 100 mls/hr IV.SIG Q24H [facility] Rx#:[id number] Oral 240 / 240 Output: Urine 400 / 400 Other: # Voids 2 1 Narrative: GENERAL: WDWN female, INAD. Awake and alert. Oriented x 4. Sitting up in bed eating breakfast. SKIN: Warm and dry. No generalized rash. HEAD: Atraumatic. Normocephalic. EYES: Pupils equal and round. No scleral icterus. No injection or drainage. ENT: No nasal bleeding or discharge. Mucous membranes pink and moist. NECK: Trachea midline. CARDIOVASCULAR: Regular rate and rhythm. No murmur appreciated. RESPIRATORY: No accessory muscle use. Clear to auscultation. Breath sounds equal bilaterally. GASTROINTESTINAL: Abdomen soft, non-tender, nondistended. +BS. MUSCULOSKELETAL: Extremities without clubbing, cyanosis, or edema. No obvious deformities. Decreased ROM in all planes lumbar spine. NEUROLOGICAL: Awake and alert. No obvious cranial nerve deficits. Motor grossly within normal limits. Normal speech. PSYCHIATRIC: Appropriate mood and affect; insight and judgment normal. - Urinary Catheter Management Indwelling Urethral Catheter Cath placed during this visit: yes, but has since been removed by the nurse Reason for continuing: Decision to DC catheter Removal date: 11/10/17 Removal time: 11:12 Results - Labs CBC & Chem 7: 11/11/17 20:27 11/12/17 12:22 Laboratory Results - last 24 hr 11/10/17 11/12/17 12:19 12:22 Sodium 136 Potassium 3.7 Chloride 103 Carbon Dioxide 26.5 Anion Gap 7 BUN 15 Creatinine 0.62 Estimated GFR Greater than 89 Random Glucose 95 Calcium 8.3 L Magnesium 2.1 Albumin (PEP) 3.11 L Albumin/Globulin Ratio 0.82 L Wxhty-2-Lwwymxhbe 0.27 Jryiu-2-Gdjgreien 1.04 H Beta Globulins 0.85 Gamma Globulins 1.63 H Microbiology 11/11/17 11:30 Blood - Peripheral Aerobic Blood Culture - Preliminary No growth in 2 days 11/11/17 11:30 Blood - Peripheral Anaerobic Blood Culture - Final QNS - See aerobic report. 11/11/17 11:24 Blood - Peripheral Aerobic Blood Culture - Preliminary No growth in 2 days 11/11/17 11:24 Blood - Peripheral Anaerobic Blood Culture - Final QNS - See aerobic report. 11/11/17 11:18 Blood - Peripheral Aerobic Blood Culture - Preliminary No growth in 2 days 11/11/17 11:18 Blood - Peripheral Anaerobic Blood Culture - Final QNS - See aerobic report. 11/11/17 11:36 Blood - Peripheral Aerobic Blood Culture - Preliminary No growth in 2 days 11/11/17 11:36 Blood - Peripheral Anaerobic Blood Culture - Preliminary No growth in 2 days - Imaging Impressions SPECT Scan-Bone NM 11/12/17 00:00 CONCLUSION: 1. Pars defect L5-S1. 2. There is section CT with oblique reconstructions could help confirm if this remains symptomatic. 3. I do not see evidence for inflammatory process. - Procedures None Assessment and Plan - Plan 42-year-old female who denies any chronic medical issues that presents with excruciating pain to her mid back. 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 ?early osteo. ?plan to repeat MRI. ? KRIST[facility]. DW Dr. Mendez who will re-evaluate patient today. Continue on IV abx Levaquin and Cefepime per ID repeat BCX with no growth x 2 days, continue to follow until finalized Back pain, acute onset Association with fevers points to risk of infection, elevated CRP, no leukocytosis Blood cultures with serratia marcescens Elevated CRP and ESR Imaging negative for discitis/osteomyelitis. +facet arthropathy on MRI. Appreciate neurology consult, seen by Dr Del Valle. No sign of meningitis on exam therefore hold off on LP Continue gabapentin Continue pain management. Increase prn IV Dilaudid to q3h for breakthrough pain. PRN [place]. Continue with PT Hypertensive, suspect situational secondary to pain No hx of HTN Clonidine prn with parameters Continue to monitor BP and will initiate scheduled treatment if indicated DVT prophylaxis SCDs until further information is gathered about acute onset back pain Code Status: FULL Discussed Condition With: patient, RN, Dr. Braswell, Dr. Mendez Discharge Planning: Not ready for discharge. Workup in progress. Will need ID and neurology clearance.
[2017-11-13 17:04] LABS: HLA-B27 Result Positive
[2017-11-14] MEDS: HYDROmorphone PF Inj 2 MG/ML Vial IV.PUSH PRN ×7 (01:40→22:44)
--- NOTE | 2017-11-14 08:09 | P.PN ---
Subjective Interval history: Follow-up on patient with bacteremia. Patient seen and examined. Patient is complaining of severe back pain. She also states she is severely constipated and has not had a bowel movement in 5 days. She reports a history of IBS constipation type. She denies any fever or chills. She denies any chest pain or shortness of breath. She complains of abdominal swelling and discomfort. Physical Exam Vital signs: Vital Signs 11/13/17 12:00 11/13/17 16:00 11/13/17 20:00 Temperature 98.5 F 98.5 F 97.9 F Pulse Rate 91 H 88 93 H Respiratory Rate 18 Blood Pressure 136/90 152/100 H 166/108 H Pulse Oximetry 97 97 97 11/13/17 21:42 11/14/17 00:00 11/14/17 04:00 Temperature 98.9 F 98.1 F Pulse Rate 97 H 94 H Respiratory Rate 18 16 17 Blood Pressure 143/93 H 186/110 H Pulse Oximetry 93 L 93 L Intake & Output 11/13/17 11/14/17 11/14/17 18:59 06:59 18:59 Intake Total 350 / 350 590 / 590 Output Total 550 / 550 Balance 350 / 350 40 / 40 Intake: IV 350 / 350 350 / 350 Maxipime Inj 2,000 MG In NS Inj 200 / 200 200 / 200 100 ML @ 200 mls/hr IV.SIG Q8H [facility] Rx#:[id number] Levaquin 750 mg Premix Inj 150 150 / 150 150 / 150 ML @ 100 mls/hr IV.SIG Q24H [facility] Rx#:[id number] Oral 240 / 240 Output: Urine 550 / 550 Other: # Voids 3 Narrative: GENERAL: WDWN female, in mild distress secondary to back pain. Awake and alert. Oriented x 4. Crying, secondary to back pain and abdominal discomfort. SKIN: Warm and dry. No generalized rash. HEAD: Atraumatic. Normocephalic. EYES: Pupils equal and round. No scleral icterus. No injection or drainage. ENT: No nasal bleeding or discharge. Mucous membranes pink and moist. NECK: Trachea midline. CARDIOVASCULAR: Tachycardic. No murmur appreciated. RESPIRATORY: No accessory muscle use. Clear to auscultation. Breath sounds equal bilaterally. GASTROINTESTINAL: Abdomen somewhat firm, +distended, diffusely tender to palpation. Hypoactive BS. MUSCULOSKELETAL: Extremities without clubbing, cyanosis, or edema. No obvious deformities. Decreased ROM in all planes lumbar spine. NEUROLOGICAL: Awake and alert. No obvious cranial nerve deficits. Motor grossly within normal limits. Normal speech. PSYCHIATRIC: Upset, crying. - Urinary Catheter Management Indwelling Urethral Catheter Cath placed during this visit: yes, but has since been removed by the nurse Reason for continuing: Decision to DC catheter Removal date: 11/10/17 Removal time: 11:12 Results - Labs CBC & Chem 7: 11/11/17 20:27 11/12/17 12:22 Laboratory Results - last 24 hr 11/10/17 11/10/17 12:19 12:19 PEP Pathologist Comment HLA-B27 Positive HLA-B27 Comment . Microbiology 11/11/17 11:30 Blood - Peripheral Aerobic Blood Culture - Preliminary No growth in 2 days 11/11/17 11:30 Blood - Peripheral Anaerobic Blood Culture - Final QNS - See aerobic report. 11/11/17 11:24 Blood - Peripheral Aerobic Blood Culture - Preliminary No growth in 2 days 11/11/17 11:24 Blood - Peripheral Anaerobic Blood Culture - Final QNS - See aerobic report. 11/11/17 11:18 Blood - Peripheral Aerobic Blood Culture - Preliminary No growth in 2 days 11/11/17 11:18 Blood - Peripheral Anaerobic Blood Culture - Final QNS - See aerobic report. 11/11/17 11:36 Blood - Peripheral Aerobic Blood Culture - Preliminary No growth in 2 days 11/11/17 11:36 Blood - Peripheral Anaerobic Blood Culture - Preliminary No growth in 2 days - Imaging ITS Impressions Abdomen/Pelvis CT 11/07/17 07:48 CONCLUSION: 1. Nonobstructive bowel gas pattern with moderate amount of stool throughout the colon. No oral contrast was given significantly limiting the visualization of the bowel mesentery in this patient with limited mesenteric fat. 2. The gallbladder is unremarkable in appearance. Thoracic Spine MRI 11/09/17 00:00 CONCLUSION: 1. Small left paracentral disc protrusion at T6-7 with minimal encroachment on the left lateral recess. No significant canal or foraminal stenosis. No abnormal enhancement postcontrast. No fracture or spondylolisthesis. Cervical Spine MRI 11/09/17 12:35 CONCLUSION: 1. Mild degenerative disc disease. No canal or significant foraminal stenosis. No cord signal abnormality. Head MRI 11/09/17 12:35 CONCLUSION: 1. Negative MR Brain with and without contrast. SPECT Scan-Bone NM 11/12/17 00:00 CONCLUSION: 1. Pars defect L5-S1. 2. There is section CT with oblique reconstructions could help confirm if this remains symptomatic. 3. I do not see evidence for inflammatory process. Abdomen X-Ray 11/14/17 00:00 CONCLUSION: 1. Large amount stool in the proximal colon. 2. Gaseous distention of the colon down to the distal descending. The sigmoid and rectal vault are decompressed. Diagnostic considerations include recent evacuation of the distal colon with an element of constipation versus distal colonic obstruction. 3. No pneumoperitoneum. Lumbar Spine MRI 11/14/17 00:00 CONCLUSION: 1. Interval development of periventricular haziness anteriorly at L5-S1 and similar epidural haziness from L5 through S2. The same areas show intense enhancement following gadolinium administration and are characteristic of an inflammatory phlegmon. No obvious nonenhancing abscess at this time, however. 2. Also new from the prior, there appears to be some developing endplate edema at L5-S1 but the overlying cortex appears to be intact. This may be reactive at this point with no obvious MR signs of osteomyelitis. 3. Bilateral facet hypertrophy at L4-5 and L5-S1. In combination with the inflammatory phlegmon at the lumbosacral junction, there may be some compromise of the L5 nerve roots bilaterally. 4. Some distention of the a ascending colon. - Procedures None Assessment and Plan - Plan 42-year-old female who denies any chronic medical issues that presents with excruciating pain to her mid back. 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 Repeat MRI shows interval development at L5-S1, new endplate edema at L5-S1 Continue on IV abx Levaquin and Cefepime per ID repeat BCX with no growth x 3 days, continue to follow until finalized Back pain, acute onset Association with fevers points to risk of infection, elevated CRP, no leukocytosis Blood cultures with serratia marcescens Elevated CRP and ESR Imaging negative for discitis/osteomyelitis. +facet arthropathy on MRI. Appreciate neurology consult, seen by Dr Del Valle. No sign of meningitis on exam therefore hold off on LP Continue gabapentin Continue pain management. Increase prn IV Dilaudid to 1mg q3h for breakthrough pain. PRN [place]. Continue with PT Hypertensive, suspect in part situational secondary to pain No hx of HTN 11/14 BP now running higher 186/110 Begin Norvasc 5 mg daily Clonidine prn with parameters Continue to monitor BP and will initiate scheduled treatment if indicated Constipation Give Radha-Colace 2 tabs now and continue with 1 tab twice daily MiraLAX now and daily Give Dulcolax suppository Fleets enema prn Obtain KUB Monitor for BM DVT prophylaxis Lovenox sq Code Status: FULL Discussed Condition With: patient, RN, Dr. Braswell, CM Discharge Planning: Not ready for discharge. Workup in progress. Will need ID and neurology clearance.
[2017-11-14] MEDS: Gabapentin 100 MG Capsule PO SCH ×3 (08:55→16:59)
[2017-11-14] MEDS ORDERED: Ketorolac Inj 30 MG/ML (IVP) Vial IV.PUSH ONE (09:34)
[2017-11-14] MEDS ORDERED: amLODIPine 5 MG Tablet PO ONE (10:01)
[2017-11-14] MEDS ORDERED: Simethicone 125 MG Chew Tablet PO PRN (11:18)
[2017-11-14] MEDS ORDERED: Sod Phosphate/Sod Biphosphate (Adult) Enema 133 ML Bottle RECTAL PRN (11:23)
[2017-11-14] MEDS ORDERED: Senna/Docusate Sodium 8.6/50 MG Tablet PO ONE (12:00)
[2017-11-14] MEDS ORDERED: Bisacodyl 10 MG Supp RECTAL ONE (12:00)
[2017-11-14] MEDS: Polyethylene Glycol 3350 17 GM Packet PO SCH (12:23)
[2017-11-14] MEDS ORDERED: Gadobutrol PF 7.5 MMOL/7.5 ML Vial (for RAD) IV.SIG ONE (12:58)
--- NOTE | 2017-11-14 13:46 | MR ---
EXAM DATE: 11/14/2017 1:24 PM EDT AGE/SEX: 42 years / Female INDICATIONS: Osteomyelitis. CLINICAL DATA: This is the patient's initial encounter. Patient reports that signs and symptoms have been present for 2 days and indicates a pain score of 7/10. MEDICAL/SURGICAL HISTORY: None. Hysterectomy. section. Ankle sx. COMPARISON: [facility] – [place], MR LUMBAR SPINE W & W/O CONTRAST, 11/07/2017. . TECHNIQUE: Multiplanar, multisequence MRI examination of the lumbar spine was performed without and with 6 ml Gadavist (gadobutrol) contrast as a single exam dose. FINDINGS: Sagittal T1 pre and postcontrast, T2 and inversion recovery images show interval development of some epidural haziness from L5 through S2. Similar haziness is identified anterior to the L5 and S1 verteb ral bodies as well. In addition, there is now some endplate diminished T1 and increased inversion rec overy signal at the lumbosacral junction which was not present previously but the overlying cortex ap pears to be intact. Following contrast administration, the hazy epidural and paravertebral areas show intense enhancement. There appears to be some distention of the ascending colon measuring approximat james 6.7 cm in diameter. T12-L1: The thecal sac has a normal diameter. No evidence of disc bulge or protrusion. The neural foramina are patent bilaterally. L1-L2: The thecal sac has a normal diameter. No evidence of disc bulge or protrusion. The neural foramina are patent bilaterally. L2-L3: The thecal sac has a normal diameter. No evidence of disc bulge or protrusion. The neural foramina are patent bilaterally. L3-L4: The thecal sac has a normal diameter. No evidence of disc bulge or protrusion. The neural foramina are patent bilaterally. L4-L5: Bilateral facet hypertrophy. Spinal canal and neural foramina remain adequate. L5-S1: Bilateral facet hypertrophy with an osseous cyst in the superior articulating facet leftward at S1. Epidural and periventricular haziness suggestive of an inflammatory phlegmon. No obvious absc ess, however. CONCLUSION: 1. Interval development of periventricular haziness anteriorly at L5-S1 and similar epidural hazines s from L5 through S2. The same areas show intense enhancement following gadolinium administration and are characteristic of an inflammatory phlegmon. No obvious nonenhancing abscess at this time, vignesh alfaro 2. Also new from the prior, there appears to be some developing endplate edema at L5-S1 but the over lying cortex appears to be intact. This may be reactive at this point with no obvious MR signs of ost eomyelitis. 3. Bilateral facet hypertrophy at L4-5 and L5-S1. In combination with the inflammatory phlegmon at t he lumbosacral junction, there may be some compromise of the L5 nerve roots bilaterally. 4. Some distention of the a ascending colon. Electronically signed by: Eligio Sepulveda MD 11/14/2017 1:45 PM EDT
--- NOTE | 2017-11-14 13:50 | XR ---
EXAM DATE: 11/14/2017 1:21 PM EDT AGE/SEX: 42 years / Female INDICATIONS: Abdominal pain. Constipation. CLINICAL DATA: This is the patient's initial encounter. Patient reports that signs and symptoms have been present for 4 - 6 days and indicates a pain score of 8/10. MEDICAL/SURGICAL HISTORY: None. section. Hysterectomy. COMPARISON: No prior exams available for comparison. FINDINGS: Gaseous distention of the colon. Large amount stool in the descending colon. The rectal vault is dec ompressed. No pneumoperitoneum. Osseous structures are intact. CONCLUSION: 1. Large amount stool in the proximal colon. 2. Gaseous distention of the colon down to the distal descending. The sigmoid and rectal vault are d ecompressed. Diagnostic considerations include recent evacuation of the distal colon with an element of constipation versus distal colonic obstruction. 3. No pneumoperitoneum. Electronically signed by: Eligio Sepulveda MD 11/14/2017 1:49 PM EDT
[2017-11-14] MEDS: Enoxaparin Inj 40 MG/0.4 ML Syringe SQ SCH (18:30)
[2017-11-14 20:47] LABS: Bacteria,Urine Moderate /hpf; Bilirubin,Urine Negative (Negative); Clarity,Urine Cloudy (Clear); Color,Urine Yellow (Yellw/Straw); Glucose,Urine (UA) Negative (Negative); Leukocyte Esterase,Urine Large (Negative); Nitrite,Urine Negative (Negative); Specific Gravity,Urine 1.006 (1.002-1.035); Squamous Epithelial Cell,Urine 12 /hpf (0-5)
[2017-11-14] MEDS: Senna/Docusate Sodium 8.6/50 MG Tablet PO SCH (21:35)
[2017-11-14 21:54] LABS: Baso % (Auto) 0.7 % (0.0-2.0); Eos # (Auto) 0.1 th/mm3 (0.0-0.4); Eos % (Auto) 2.2 % (0.0-4.0); Hematocrit 36.4 % (35.0-46.0); Hemoglobin 12.3 gm/dL (11.6-15.3); Lymph % (Auto) 17.4 % (9.0-44.0); Mean Corpuscular HGB Conc 33.9 % (32.0-36.0); Mean Corpuscular Hemoglobin 28.1 pg (27.0-34.0); Mean Corpuscular Volume 82.9 fL (80.0-100.0); Mean Platelet Volume 7.2 fL (7.0-11.0); Mono # (Auto) 0.3 th/mm3 (0.0-0.9); Mono % (Auto) 5.2 % (0.0-8.0); Neut # (Auto) 4.3 th/mm3 (1.8-7.7); Neut % (Auto) 74.5 % (16.0-70.0); Platelet Count 240 th/mm3 (150-450); Red Blood Count 4.39 mil/mm3 (4.00-5.30); Red Cell Distribution Width 13.7 % (11.6-17.2); White Blood Count 5.8 th/mm3 (4.0-11.0)
[2017-11-14 22:04] LABS: Anion Gap 9 meq/L (5-15); Blood Urea Nitrogen 11 mg/dL (7-18); Calcium 8.7 mg/dL (8.5-10.1); Carbon Dioxide 27.5 meq/L (21.0-32.0); Chloride 94 meq/L (98-107); Glomerular Filtration Rate Greater Than 89 mL/min (>89); Glucose,Random 112 mg/dL (74-106); Potassium 4.5 meq/L (3.5-5.1); Sodium 130 meq/L (136-145)
[2017-11-15] MEDS: HYDROmorphone PF Inj 2 MG/ML Vial IV.PUSH PRN ×7 (02:02→21:31)
--- NOTE | 2017-11-15 06:51 | P.PN ---
Subjective Interval history: Follow-up on patient with bacteremia. Patient seen and examined. States she feels a little bit better today. She still has significant back pain but believes some of it may be related to her constipation. She has not had a bowel movement as of yet but reports improvement in her abdominal distention and discomfort she is now actively passing flatus. She denies any fever or chills. She denies any nausea or vomiting. She is not eating much but is tolerating po diet. She denies any dysuria. Physical Exam Vital signs: Vital Signs 11/14/17 08:00 11/14/17 12:00 11/14/17 16:00 Temperature 97.8 F 98.1 F 98.1 F Pulse Rate 91 H 91 H 110 H Respiratory Rate 18 18 Blood Pressure 154/107 H 152/104 H 138/96 H Pulse Oximetry 96 94 L 97 11/14/17 20:00 11/15/17 00:00 11/15/17 04:00 Temperature 97.6 F 98 F 98.2 F Pulse Rate 107 H 118 H Respiratory Rate 18 Blood Pressure 142/107 H 133/97 H 130/82 Pulse Oximetry 99 97 98 Intake & Output 11/14/17 11/14/17 11/15/17 06:59 18:59 06:59 Intake Total 590 / 590 350 / 350 Output Total 550 / 550 Balance 40 / 40 350 / 350 Weight 45.3 kg Intake: IV 350 / 350 350 / 350 Maxipime Inj 2,000 MG In NS Inj 200 / 200 200 / 200 100 ML @ 200 mls/hr IV.SIG Q8H [facility] Rx#:[id number] Levaquin 750 mg Premix Inj 150 150 / 150 150 / 150 ML @ 100 mls/hr IV.SIG Q24H [facility] Rx#:[id number] Oral 240 / 240 Output: Urine 550 / 550 Other: # Voids 3 Narrative: GENERAL: WDWN female patient, INAD. Awake and alert. Oriented x 4. Appears comfortable. Audibly passing flatus. SKIN: Warm and dry. No generalized rash. HEENT: Atraumatic. Normocephalic. Pupils equal and round. No scleral icterus. No injection or drainage. No nasal bleeding or discharge. Mucous membranes pink and moist. NECK: Trachea midline. CARDIOVASCULAR: Tachycardic. No murmur appreciated. RESPIRATORY: No accessory muscle use. Clear to auscultation. Breath sounds equal bilaterally. GASTROINTESTINAL: Abdomen somewhat firm, mildly distended, mild diffuse tenderness to palpation. + BS. MUSCULOSKELETAL: Extremities without clubbing, cyanosis, or edema. No obvious deformities. Decreased ROM in all planes lumbar spine. NEUROLOGICAL: Awake and alert. No obvious cranial nerve deficits. Motor grossly within normal limits. Nonfocal. Normal speech. PSYCHIATRIC: Calm and pleasant. Appropriate mood and affect. - Urinary Catheter Management Indwelling Urethral Catheter Cath placed during this visit: yes, but has since been removed by the nurse Reason for continuing: Decision to DC catheter Removal date: 11/10/17 Removal time: 11:12 Results - Labs CBC & Chem 7: 11/14/17 21:30 11/14/17 21:30 Laboratory Results - last 24 hr 11/10/17 11/14/17 11/14/17 12:19 18:35 21:30 WBC 5.8 RBC 4.39 Hgb 12.3 Hct 36.4 MCV 82.9 MCH 28.1 MCHC 33.9 RDW 13.7 Plt Count 240 MPV 7.2 Neut % (Auto) 74.5 H Lymph % (Auto) 17.4 Wilkinson % (Auto) 5.2 Eos % (Auto) 2.2 Baso % (Auto) 0.7 Neut # (Auto) 4.3 Lymph # (Auto) 1.0 Wilkinson # (Auto) 0.3 Eos # (Auto) 0.1 Baso # (Auto) 0.0 WBC Differential . Differential Comment Auto diff final Sodium Potassium Chloride Carbon Dioxide Anion Gap BUN Creatinine Estimated GFR Random Glucose Lactic Acid Calcium Urine Color Yellow Urine Clarity Cloudy H Urine pH 6.0 Ur Specific [place] 1.006 Urine Protein Negative Urine Glucose (UA) Negative Urine Ketones Negative Urine Occult Blood Moderate H Urine Nitrate Negative Urine Bilirubin Negative Urine Urobilinogen Less than 2 Ur Leukocyte Esterase Large H Urine RBC 62 H Urine WBC 102 H Urine WBC Clumps Occasional H Ur Squamous Epith Cells 12 Urine Bacteria Moderate H Micro UA Comment Culture indicated Urine Culture Comments Culture indicated Rheumatoid Factor Less than 14 MEGHA Screen Negative MEGHA Titer ND MEGHA Pattern ND SS-A Antibody <1.0 neg SS-B Antibody <1.0 neg Sm (Xiong) Antibody <1.0 neg SM/PRESENTATION SPECIALIST Antibody <1.0 neg Scl-70 Antibody <1.0 neg 11/14/17 11/14/17 21:30 21:30 WBC RBC Hgb Hct MCV MCH MCHC RDW Plt Count MPV Neut % (Auto) Lymph % (Auto) Wilkinson % (Auto) Eos % (Auto) Baso % (Auto) Neut # (Auto) Lymph # (Auto) Wilkinson # (Auto) Eos # (Auto) Baso # (Auto) WBC Differential Differential Comment Sodium 130 L Potassium 4.5 Chloride 94 L Carbon Dioxide 27.5 Anion Gap 9 BUN 11 Creatinine 0.67 Estimated GFR Greater than 89 Random Glucose 112 H Lactic Acid 1.4 Calcium 8.7 Urine Color Urine Clarity Urine pH Ur Specific [place] Urine Protein Urine Glucose (UA) Urine Ketones Urine Occult Blood Urine Nitrate Urine Bilirubin Urine Urobilinogen Ur Leukocyte Esterase Urine RBC Urine WBC Urine WBC Clumps Ur Squamous Epith Cells Urine Bacteria Micro UA Comment Urine Culture Comments Rheumatoid Factor MEGHA Screen MEGHA Titer MEGHA Pattern SS-A Antibody SS-B Antibody Sm (Xiong) Antibody SM/PRESENTATION SPECIALIST Antibody Scl-70 Antibody Microbiology 11/11/17 11:30 Blood - Peripheral Aerobic Blood Culture - Preliminary No growth in 3 days 11/11/17 11:30 Blood - Peripheral Anaerobic Blood Culture - Final QNS - See aerobic report. 11/11/17 11:24 Blood - Peripheral Aerobic Blood Culture - Preliminary No growth in 3 days 11/11/17 11:24 Blood - Peripheral Anaerobic Blood Culture - Final QNS - See aerobic report. 11/11/17 11:18 Blood - Peripheral Aerobic Blood Culture - Preliminary No growth in 3 days 11/11/17 11:18 Blood - Peripheral Anaerobic Blood Culture - Final QNS - See aerobic report. 11/11/17 11:36 Blood - Peripheral Aerobic Blood Culture - Preliminary No growth in 3 days 11/11/17 11:36 Blood - Peripheral Anaerobic Blood Culture - Preliminary No growth in 3 days - Imaging Impressions Abdomen X-Ray 11/14/17 00:00 CONCLUSION: 1. Large amount stool in the proximal colon. 2. Gaseous distention of the colon down to the distal descending. The sigmoid and rectal vault are decompressed. Diagnostic considerations include recent evacuation of the distal colon with an element of constipation versus distal colonic obstruction. 3. No pneumoperitoneum. Lumbar Spine MRI 11/14/17 00:00 CONCLUSION: 1. Interval development of periventricular haziness anteriorly at L5-S1 and similar epidural haziness from L5 through S2. The same areas show intense enhancement following gadolinium administration and are characteristic of an inflammatory phlegmon. No obvious nonenhancing abscess at this time, however. 2. Also new from the prior, there appears to be some developing endplate edema at L5-S1 but the overlying cortex appears to be intact. This may be reactive at this point with no obvious MR signs of osteomyelitis. 3. Bilateral facet hypertrophy at L4-5 and L5-S1. In combination with the inflammatory phlegmon at the lumbosacral junction, there may be some compromise of the L5 nerve roots bilaterally. 4. Some distention of the a ascending colon. - Procedures None Assessment and Plan - Assessment (1) Bacterial infection due to Serratia Code(s): A49.8 - Other bacterial infections of unspecified site Status: Acute - Plan 42-year-old female who denies any chronic medical issues that presents with excruciating pain to her mid back. 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 Repeat MRI shows interval development at L5-S1, new endplate edema at L5-S1. DW Dr. Mendez who will d/w NS. Continue on IV abx Levaquin and Cefepime per ID repeat BCX with no growth x 4 days, continue to follow until finalized Back pain, acute onset Association with fevers points to risk of infection, elevated CRP, no leukocytosis Blood cultures with serratia marcescens Elevated CRP and ESR Initial imaging negative for discitis/osteomyelitis. +facet arthropathy on MRI. Repeat imaging shows worsening Appreciate neurology consult, seen by Dr Del Valle. No sign of meningitis on exam therefore hold off on LP Continue gabapentin Continue pain management. Continue prn IV Dilaudid 1mg q3h for breakthrough pain. PRN [place]. Continue with PT Hypertensive, suspect in part situational secondary to pain No hx of HTN 815 BP now running higher 186/110 8./16 BP improved but still uncontrolled. Increase Norvasc to 10mg daily Clonidine prn with parameters Continue to monitor BP and will initiate scheduled treatment if indicated Bacteruria patient is asymptomatic on IV Cefepime await final UCX results Constipation +flatus but no BM Given Radha-Colace 2 tabs and continue with 1 tab twice daily MiraLAX daily Give Fleets enema Monitor for BM DVT prophylaxis Lovenox sq Code Status: FULL Discussed Condition With: patient, nursing staff, Dr. Braswell, Dr. Mendez Discharge Planning: Not ready for discharge. Workup in progress. Will need ID and neurology clearance.
[2017-11-15] MEDS: Polyethylene Glycol 3350 17 GM Packet PO SCH (08:00)
[2017-11-15] MEDS: Enoxaparin Inj 40 MG/0.4 ML Syringe SQ SCH (08:01)
[2017-11-15] MEDS: Senna/Docusate Sodium 8.6/50 MG Tablet PO SCH ×2 (08:02→21:31)
[2017-11-15] MEDS: Gabapentin 100 MG Capsule PO SCH ×3 (08:02→17:25)
[2017-11-15] MEDS ORDERED: Sod Phosphate/Sod Biphosphate (Adult) Enema 133 ML Bottle RECTAL ONE (08:31)
[2017-11-15] MEDS ORDERED: amLODIPine 5 MG Tablet PO SCH (09:00)
[2017-11-15 09:52] LABS: DS DNA Ab (Crithidia) NEGATIVE (NEGATIVE)
[2017-11-15] MEDS ORDERED: amLODIPine 5 MG Tablet PO ONE (12:11)
--- NOTE | 2017-11-15 15:53 | P.PNID ---
Subjective Remarks: pt repeat MRI positive for inflammatory process, no abscess SHe cont to co pain not worse but still barely able to move' NO feve r reperat bl clx negative Allergies/Adverse Reactions: Allergies No Known Allergies Allergy (Verified 11/07/17 07:45) Objective Vital Signs 11/14/17 16:00 11/14/17 20:00 11/15/17 00:00 Temperature 98.1 F 97.6 F 98 F Pulse Rate 110 H 107 H 118 H Respiratory Rate 18 Blood Pressure 138/96 H 142/107 H 133/97 H Pulse Oximetry 97 99 97 11/15/17 04:00 11/15/17 08:00 11/15/17 12:00 Temperature 98.2 F 98.0 F 97.8 F Pulse Rate 99 H 107 H Respiratory Rate 16 Blood Pressure 130/82 149/102 H 116/83 Pulse Oximetry 98 96 96 Intake & Output 11/14/17 11/15/17 11/15/17 18:59 06:59 18:59 Intake Total 350 / 350 Balance 350 / 350 Weight 45.3 kg Intake: IV 350 / 350 Maxipime Inj 2,000 MG In NS Inj 200 / 200 100 ML @ 200 mls/hr IV.SIG Q8H [facility] Rx#:[id number] Levaquin 750 mg Premix Inj 150 150 / 150 ML @ 100 mls/hr IV.SIG Q24H [facility] Rx#:[id number] Other: # Voids 3 2 11/14/17 18:35 Clean Catch Urine Urine Culture - Preliminary Results Pending 11/11/17 11:30 Blood - Peripheral Aerobic Blood Culture - Preliminary No growth in 4 days 11/11/17 11:30 Blood - Peripheral Anaerobic Blood Culture - Final QNS - See aerobic report. 11/11/17 11:24 Blood - Peripheral Aerobic Blood Culture - Preliminary No growth in 4 days 11/11/17 11:24 Blood - Peripheral Anaerobic Blood Culture - Final QNS - See aerobic report. 11/11/17 11:18 Blood - Peripheral Aerobic Blood Culture - Preliminary No growth in 4 days 11/11/17 11:18 Blood - Peripheral Anaerobic Blood Culture - Final QNS - See aerobic report. 11/11/17 11:36 Blood - Peripheral Aerobic Blood Culture - Preliminary No growth in 4 days 11/11/17 11:36 Blood - Peripheral Anaerobic Blood Culture - Preliminary No growth in 4 days Lab - Hematology Results 11/14/17 21:30 WBC 5.8 RBC 4.39 Hgb 12.3 Hct 36.4 MCV 82.9 MCH 28.1 MCHC 33.9 RDW 13.7 Plt Count 240 MPV 7.2 Neut % (Auto) 74.5 H Lymph % (Auto) 17.4 [place] % (Auto) 5.2 Eos % (Auto) 2.2 Baso % (Auto) 0.7 Neut # (Auto) 4.3 Lymph # (Auto) 1.0 [place] # (Auto) 0.3 Eos # (Auto) 0.1 Baso # (Auto) 0.0 WBC Differential . Differential Comment Auto diff final Lab - Chemistry Results 11/10/17 11/14/17 11/14/17 12:19 21:30 21:30 Sodium 130 L Potassium 4.5 Chloride 94 L Carbon Dioxide 27.5 Anion Gap 9 BUN 11 Creatinine 0.67 Estimated GFR Greater than 89 Random Glucose 112 H Lactic Acid 1.4 Calcium 8.7 PEP Pathologist Comment Imaging: ITS Impressions Abdomen/Pelvis CT 11/07/17 07:48 CONCLUSION: 1. Nonobstructive bowel gas pattern with moderate amount of stool throughout the colon. No oral contrast was given significantly limiting the visualization of the bowel mesentery in this patient with limited mesenteric fat. 2. The gallbladder is unremarkable in appearance. Thoracic Spine MRI 11/09/17 00:00 CONCLUSION: 1. Small left paracentral disc protrusion at T6-7 with minimal encroachment on the left lateral recess. No significant canal or foraminal stenosis. No abnormal enhancement postcontrast. No fracture or spondylolisthesis. Cervical Spine MRI 11/09/17 12:35 CONCLUSION: 1. Mild degenerative disc disease. No canal or significant foraminal stenosis. No cord signal abnormality. Head MRI 11/09/17 12:35 CONCLUSION: 1. Negative MR Brain with and without contrast. SPECT Scan-Bone NM 11/12/17 00:00 CONCLUSION: 1. Pars defect L5-S1. 2. There is section CT with oblique reconstructions could help confirm if this remains symptomatic. 3. I do not see evidence for inflammatory process. Abdomen X-Ray 11/14/17 00:00 CONCLUSION: 1. Large amount stool in the proximal colon. 2. Gaseous distention of the colon down to the distal descending. The sigmoid and rectal vault are decompressed. Diagnostic considerations include recent evacuation of the distal colon with an element of constipation versus distal colonic obstruction. 3. No pneumoperitoneum. Lumbar Spine MRI 11/14/17 00:00 CONCLUSION: 1. Interval development of periventricular haziness anteriorly at L5-S1 and similar epidural haziness from L5 through S2. The same areas show intense enhancement following gadolinium administration and are characteristic of an inflammatory phlegmon. No obvious nonenhancing abscess at this time, however. 2. Also new from the prior, there appears to be some developing endplate edema at L5-S1 but the overlying cortex appears to be intact. This may be reactive at this point with no obvious MR signs of osteomyelitis. 3. Bilateral facet hypertrophy at L4-5 and L5-S1. In combination with the inflammatory phlegmon at the lumbosacral junction, there may be some compromise of the L5 nerve roots bilaterally. 4. Some distention of the a ascending colon. Physical Exam: Lumbar spine phlegmone, Serratia HIgh grade Serratia bacteremia Pt denies current IVDUI, acknoweldge remote drug use cont cefepime + levaquine ( avoid CFTX) Neuroseurg consult
[2017-11-15] MEDS: Temazepam 15 MG Capsule PO PRN (21:31)
[2017-11-16] MEDS: HYDROmorphone PF Inj 2 MG/ML Vial IV.PUSH PRN ×8 (00:31→22:55)
--- NOTE | 2017-11-16 07:25 | P.PN ---
Subjective Interval history: Follow-up on patient with Serratia bacteremia and back pain. Patient seen and examined. Patient states she feels much better today. She is having small hard bowel movements. She denies any complaints of nausea vomiting or abdominal pain. She denies any fever or chills. She denies any chest pain or shortness of breath. She continues to have low back pain exacerbated by movement of the left lower extremity. Physical Exam Vital signs: Vital Signs 11/15/17 08:00 11/15/17 12:00 11/15/17 16:00 Temperature 98.0 F 97.8 F 98.1 F Pulse Rate 99 H 107 H 98 H Respiratory Rate 16 16 22 Blood Pressure 149/102 H 116/83 122/74 Pulse Oximetry 96 96 96 11/15/17 20:00 11/16/17 00:00 11/16/17 04:00 Temperature 97.1 F L 98.0 F 97.6 F Pulse Rate 107 H 99 H 87 Respiratory Rate 18 18 18 Blood Pressure 111/80 108/78 101/65 Pulse Oximetry 97 98 95 Intake & Output 11/15/17 11/16/17 11/16/17 18:59 06:59 18:59 Intake Total 520 / 520 710 / 710 Balance 520 / 520 710 / 710 Intake: IV 100 / 100 350 / 350 Maxipime Inj 2,000 MG In NS Inj 100 / 100 200 / 200 100 ML @ 200 mls/hr IV.SIG Q8H [facility] Rx#:[id number] Levaquin 750 mg Premix Inj 150 150 / 150 ML @ 100 mls/hr IV.SIG Q24H [facility] Rx#:[id number] Oral 420 / 420 360 / 360 Other: # Voids 5 6 # Bowel Movements 0 Narrative: GENERAL: WDWN female patient, INAD. Awake and alert. Oriented x 4. Sitting up in bed eating breakfast. SKIN: Warm and dry. No generalized rash. HEENT: Atraumatic. Normocephalic. Pupils equal and round. No scleral icterus. No injection or drainage. No nasal bleeding or discharge. Mucous membranes pink and moist. NECK: Trachea midline. CARDIOVASCULAR: Tachycardic. No murmur appreciated. RESPIRATORY: No accessory muscle use. Clear to auscultation. Breath sounds equal bilaterally. GASTROINTESTINAL: Abdomen soft, nondistended, nontender. +BS. MUSCULOSKELETAL: Extremities without clubbing, cyanosis, or edema. No obvious deformities. Decreased ROM in all planes lumbar spine. +Left SLR. Motor function intact distally. NEUROLOGICAL: Awake and alert. No obvious cranial nerve deficits. Motor grossly within normal limits. Nonfocal. Normal speech. PSYCHIATRIC: Calm and pleasant. Appropriate mood and affect. - Urinary Catheter Management Indwelling Urethral Catheter Cath placed during this visit: yes, but has since been removed by the nurse Reason for continuing: Decision to DC catheter Removal date: 11/10/17 Removal time: 11:12 Results - Labs CBC & Chem 7: 11/14/17 21:30 11/14/17 21:30 Laboratory Results - last 24 hr 11/10/17 12:19 Anti-ds DNA Titer (Crith) ND Anti-ds DNA (Crithidia) Negative Microbiology 11/14/17 18:35 Clean Catch Urine Urine Culture - Preliminary Results Pending 11/11/17 11:30 Blood - Peripheral Aerobic Blood Culture - Preliminary No growth in 4 days 11/11/17 11:30 Blood - Peripheral Anaerobic Blood Culture - Final QNS - See aerobic report. 11/11/17 11:24 Blood - Peripheral Aerobic Blood Culture - Preliminary No growth in 4 days 11/11/17 11:24 Blood - Peripheral Anaerobic Blood Culture - Final QNS - See aerobic report. 11/11/17 11:18 Blood - Peripheral Aerobic Blood Culture - Preliminary No growth in 4 days 11/11/17 11:18 Blood - Peripheral Anaerobic Blood Culture - Final QNS - See aerobic report. 11/11/17 11:36 Blood - Peripheral Aerobic Blood Culture - Preliminary No growth in 4 days 11/11/17 11:36 Blood - Peripheral Anaerobic Blood Culture - Preliminary No growth in 4 days - Imaging ITS Impressions Abdomen/Pelvis CT 11/07/17 07:48 CONCLUSION: 1. Nonobstructive bowel gas pattern with moderate amount of stool throughout the colon. No oral contrast was given significantly limiting the visualization of the bowel mesentery in this patient with limited mesenteric fat. 2. The gallbladder is unremarkable in appearance. Thoracic Spine MRI 11/09/17 00:00 CONCLUSION: 1. Small left paracentral disc protrusion at T6-7 with minimal encroachment on the left lateral recess. No significant canal or foraminal stenosis. No abnormal enhancement postcontrast. No fracture or spondylolisthesis. Cervical Spine MRI 11/09/17 12:35 CONCLUSION: 1. Mild degenerative disc disease. No canal or significant foraminal stenosis. No cord signal abnormality. Head MRI 11/09/17 12:35 CONCLUSION: 1. Negative MR Brain with and without contrast. SPECT Scan-Bone NM 11/12/17 00:00 CONCLUSION: 1. Pars defect L5-S1. 2. There is section CT with oblique reconstructions could help confirm if this remains symptomatic. 3. I do not see evidence for inflammatory process. Abdomen X-Ray 11/14/17 00:00 CONCLUSION: 1. Large amount stool in the proximal colon. 2. Gaseous distention of the colon down to the distal descending. The sigmoid and rectal vault are decompressed. Diagnostic considerations include recent evacuation of the distal colon with an element of constipation versus distal colonic obstruction. 3. No pneumoperitoneum. Lumbar Spine MRI 11/14/17 00:00 CONCLUSION: 1. Interval development of periventricular haziness anteriorly at L5-S1 and similar epidural haziness from L5 through S2. The same areas show intense enhancement following gadolinium administration and are characteristic of an inflammatory phlegmon. No obvious nonenhancing abscess at this time, however. 2. Also new from the prior, there appears to be some developing endplate edema at L5-S1 but the overlying cortex appears to be intact. This may be reactive at this point with no obvious MR signs of osteomyelitis. 3. Bilateral facet hypertrophy at L4-5 and L5-S1. In combination with the inflammatory phlegmon at the lumbosacral junction, there may be some compromise of the L5 nerve roots bilaterally. 4. Some distention of the a ascending colon. - Procedures None Assessment and Plan - Assessment (1) Bacterial infection due to Serratia Code(s): A49.8 - Other bacterial infections of unspecified site Status: Acute - Plan 42-year-old female who denies any chronic medical issues that presents with excruciating pain to her mid back. 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 Repeat MRI shows interval development at L5-S1, new endplate edema at L5-S1. Evaluated by NS, appreciate recommendations - repeat MRI L spine in one week. Continue on IV abx Levaquin and Cefepime per ID repeat BCX with no growth x 4 days, continue to follow until finalized Back pain, acute onset Association with fevers points to risk of infection, elevated CRP, no leukocytosis Blood cultures with serratia marcescens Initial imaging negative for discitis/osteomyelitis. +facet arthropathy on MRI. Repeat imaging shows worsening Appreciate neurology consult, seen by Dr Del Valle. Continue gabapentin Continue pain management. Continue prn IV Dilaudid 1mg q3h for breakthrough pain. PRN [place]. Continue with PT 11/16 - still requiring parenteral IV pain medication. She was in too much pain to participate with PT yesterday. Will see how she does today with PT. Hypertensive, suspect in part situational secondary to pain No hx of HTN 11/14 BP now running higher 186/110 8. BP improved but still uncontrolled. Increase Norvasc to 10mg daily Clonidine prn with parameters Continue to monitor BP and will initiate scheduled treatment if indicated Bacteruria patient is asymptomatic on IV Cefepime UCX with no growth Constipation, resolving having small hard BMs Increase MiraLAX to BID for now Continue on Radha Colace BID Monitor for BM DVT prophylaxis Lovenox sq Code Status: FULL Discussed Condition With: patient, RN, Dr. Braswell Discharge Planning: Not ready for discharge. Discharge pending ID clearance and clinical improvement.
--- NOTE | 2017-11-16 08:58 | P.CONNS ---
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 On antibiotics this week. MRI performed yesterday compared to earlier this week looks worse (with contrast) but no obvious sign of abscess to drain. There is an epidural phelgmon anteriorly at L4/5/S1 but patient says her back pain is better at the end of this week and is able to ambulate with a walker, no bladder complaints, bowel constipation but on dilaudid and has not eaten much. When asked repeatedly, she states she feels better now than when she came in. [facility] - History History Provided By: Patient - Medical History Medical History: Medical History (Last Reviewed 11/12/17 @ 07:09 by Lauri Khan) Patient denies medical problems - Surgical History Surgical History: Surgical History (Last Reviewed 11/12/17 @ 07:09 by Lauri Khan) History of No history of previous surgery - Tobacco History Second Hand Smoke Exposure: Yes Tobacco Use In Past 30 Days: Yes Smoking Status: Current every day smoker Tobacco Type: Cigarettes - Alcohol History How Often Do You Have a Drink Containing Alcohol: Monthly or less - Substance Use History Substance History: No History of Abuse - Travel History Recent Travel in the [place] Within the Last 8 Weeks: No Recent Travel Out of the Country Within the Last 8 Weeks: No - Immunization History Tetanus Immunization: Unsure Hx Influenza Vaccine This Season: No Medications and Allergies Active Medications: Active Medications Acetaminophen (Tylenol) 650 mg PO Q4H PRN PRN Reason: Temp > 100.4 Hydrocodone Bitart/Acetaminophen ([place] 10/325) 1 tab PO Q6H PRN PRN Reason: PAIN SCALE 6 TO 10 Last Admin: 11/16/17 06:17 Dose: 1 tab Hydrocodone Bitart/Acetaminophen ([place] 5/325) 1 tab PO Q6H PRN PRN Reason: PAIN SCALE 3 TO 5 Last Admin: 11/12/17 23:46 Dose: 1 tab Al Hydroxide/Mg Hydroxide (Milk Of Magnesia Liq) 30 ml PO Q12H PRN PRN Reason: Mild Constipation Last Admin: 11/13/17 22:51 Dose: 30 ml Amlodipine Besylate (Norvasc) 10 mg PO DAILY [facility] Clonidine HCl (Catapres) 0.1 mg PO Q6H PRN PRN Reason: SBP>180, DBP>95 Last Admin: 11/14/17 03:41 Dose: 0.1 mg Cyclobenzaprine HCl (Flexeril) 10 mg PO Q8H PRN PRN Reason: SPASM Last Admin: 11/16/17 01:24 Dose: 10 mg Enoxaparin Sodium (Lovenox Inj) 40 mg SQ DAILY [facility] Last Admin: 11/15/17 08:01 Dose: 40 mg Gabapentin (Neurontin) 100 mg PO TID [facility] Last Admin: 11/15/17 17:25 Dose: 100 mg Hydromorphone HCl (Dilaudid Pf Inj) 1 mg IV.PUSH Q3H PRN PRN Reason: BREAKTHROUGH PAIN Last Admin: 11/16/17 07:30 Dose: 1 mg Cefepime HCl 2,000 mg/ Sodium (Chloride) 100 mls @ 200 mls/hr IV.SIG Q8H [facility] Last Infusion: 11/16/17 04:43 Dose: Infused Levofloxacin/Dextrose (Levaquin 750 Mg Premix Inj) 150 mls @ 100 mls/hr IV.SIG Q24H [facility] Last Infusion: 11/15/17 23:00 Dose: Infused Metoclopramide HCl (Reglan Inj) 5 mg IV.PUSH Q8H PRN; Protocol PRN Reason: mod to severe nause if not zo Last Admin: 11/08/17 23:22 Dose: 5 mg Ondansetron HCl (Zofran Inj) 4 mg IV.PUSH Q6H PRN PRN Reason: NAUSEA OR VOMITING Last Admin: 11/13/17 14:02 Dose: 4 mg Polyethylene Glycol (Miralax) 17 gm PO DAILY [facility] Last Admin: 11/15/17 08:00 Dose: 17 gm Promethazine HCl (Phenergan) 12.5 mg PO Q6H PRN PRN Reason: nausea if michael PO Senna/Docusate Sodium (Radha-Colace) 1 tab PO BID [facility] Last Admin: 11/15/17 21:31 Dose: 1 tab Simethicone (Phazyme Chew) 125 mg PO TID PRN PRN Reason: DYSPEPSIA Sodium Biphosphate/Sodium Phosphate (Fleets Enema (Adult)) 118 ml RECTAL UNSCH PRN PRN Reason: CONSTIPATION Temazepam (Restoril) 15 mg PO HS PRN PRN Reason: INSOMNIA Last Admin: 11/15/17 21:31 Dose: 15 mg Allergies Allergy/AdvReac Type Severity Reaction Status Date / Time No Known Allergies Allergy Verified 11/07/17 07:45 Home Medications Medication Instructions Recorded Confirmed Type No Known Home Medications 11/07/17 11/07/17 History Exam Vital signs: Vital Signs 11/15/17 12:00 11/15/17 16:00 11/15/17 20:00 Temperature 97.8 F 98.1 F 97.1 F L Pulse Rate 107 H 98 H 107 H Respiratory Rate 16 22 18 Blood Pressure 116/83 122/74 111/80 Pulse Oximetry 96 96 97 11/16/17 00:00 11/16/17 04:00 Temperature 98.0 F 97.6 F Pulse Rate 99 H 87 Respiratory Rate 18 18 Blood Pressure 108/78 101/65 Pulse Oximetry 98 95 Intake & Output 11/15/17 11/16/17 11/16/17 18:59 06:59 18:59 Intake Total 520 / 520 710 / 710 Balance 520 / 520 710 / 710 Intake: IV 100 / 100 350 / 350 Maxipime Inj 2,000 MG In NS Inj 100 / 100 200 / 200 100 ML @ 200 mls/hr IV.SIG Q8H [facility] Rx#:[id number] Levaquin 750 mg Premix Inj 150 150 / 150 ML @ 100 mls/hr IV.SIG Q24H [facility] Rx#:[id number] Oral 420 / 420 360 / 360 Other: # Voids 5 6 # Bowel Movements 0 Narrative: A&O x 3 CN II-XII intact Motor 5/5 UE/ LE LLE pain in hip abduction and forward flexion arising from back RLE much less painful Able to ambulate with walker Results - Laboratory Findings CBC and BMP: 11/14/17 21:30 11/14/17 21:30 Abnormal lab findings: Abnormal Labs 11/07/17 11/07/17 11/07/17 07:50 07:50 07:50 Neut % (Auto) 90.0 H Lymph % (Auto) 5.4 L Neut # (Auto) 8.8 H Lymph # (Auto) 0.5 L ESR Sodium 134 L Potassium Chloride BUN Estimated GFR 62 L Random Glucose 108 H Lactic Acid 2.9 H Calcium AST C-Reactive Protein Total Protein 8.3 H Albumin Albumin (PEP) Albumin/Globulin Ratio Cluxa-9-Wagbwwsty Gamma Globulins Lipase Urine Clarity Urine Occult Blood Ur Leukocyte Esterase Urine RBC Urine WBC Urine WBC Clumps Urine Bacteria Urine Opiates Screen Ur Amphetamines Screen 11/07/17 11/07/17 11/07/17 07:50 07:50 07:50 Neut % (Auto) Lymph % (Auto) Neut # (Auto) Lymph # (Auto) ESR 44 H Sodium Potassium Chloride BUN Estimated GFR Random Glucose Lactic Acid Calcium AST C-Reactive Protein 2.00 H Total Protein Albumin Albumin (PEP) Albumin/Globulin Ratio Gdnul-8-Eylxrcmnn Gamma Globulins Lipase 65 L Urine Clarity Urine Occult Blood Ur Leukocyte Esterase Urine RBC Urine WBC Urine WBC Clumps Urine Bacteria Urine Opiates Screen Ur Amphetamines Screen 11/07/17 11/07/17 11/10/17 11:25 11:25 12:19 Neut % (Auto) 85.3 H Lymph % (Auto) Neut # (Auto) 7.9 H Lymph # (Auto) 0.9 L ESR Sodium Potassium Chloride BUN Estimated GFR Random Glucose Lactic Acid Calcium AST C-Reactive Protein Total Protein Albumin Albumin (PEP) Albumin/Globulin Ratio Ylsgd-8-Bdnysztak Gamma Globulins Lipase Urine Clarity Urine Occult Blood Ur Leukocyte Esterase Small H Urine RBC Urine WBC Urine WBC Clumps Urine Bacteria Urine Opiates Screen Pos H Ur Amphetamines Screen Pos H 11/10/17 11/10/17 11/11/17 12:19 12:19 20:27 Neut % (Auto) 84.6 H Lymph % (Auto) Neut # (Auto) Lymph # (Auto) 0.8 L ESR Sodium Potassium 3.4 L Chloride BUN 22 H Estimated GFR Random Glucose 111 H Lactic Acid Calcium AST 11 L C-Reactive Protein Total Protein Albumin 2.7 L Albumin (PEP) 3.11 L Albumin/Globulin Ratio 0.82 L [place]-2-Zkbtxkvpr 1.04 H Gamma Globulins 1.63 H Lipase Urine Clarity Urine Occult Blood Ur Leukocyte Esterase Urine RBC Urine WBC Urine WBC Clumps Urine Bacteria Urine Opiates Screen Ur Amphetamines Screen 11/11/17 11/12/17 11/14/17 20:27 12:22 18:35 Neut % (Auto) Lymph % (Auto) Neut # (Auto) Lymph # (Auto) ESR Sodium Potassium 3.4 L Chloride BUN Estimated GFR 76 L Random Glucose 117 H Lactic Acid Calcium 8.4 L 8.3 L AST C-Reactive Protein Total Protein Albumin Albumin (PEP) Albumin/Globulin Ratio Ffzxb-1-Xqztaluyc Gamma Globulins Lipase Urine Clarity Cloudy H Urine Occult Blood Moderate H Ur Leukocyte Esterase Large H Urine RBC 62 H Urine WBC 102 H Urine WBC Clumps Occasional H Urine Bacteria Moderate H Urine Opiates Screen Ur Amphetamines Screen 11/14/17 11/14/17 21:30 21:30 Neut % (Auto) 74.5 H Lymph % (Auto) Neut # (Auto) Lymph # (Auto) ESR Sodium 130 L Potassium Chloride 94 L BUN Estimated GFR Random Glucose 112 H Lactic Acid Calcium AST C-Reactive Protein Total Protein Albumin Albumin (PEP) Albumin/Globulin Ratio Cqhuc-4-Bqyuieddo Gamma Globulins Lipase Urine Clarity Urine Occult Blood Ur Leukocyte Esterase Urine RBC Urine WBC Urine WBC Clumps Urine Bacteria Urine Opiates Screen Ur Amphetamines Screen Assessment and Plan - Plan 42yoF admitted with Serratia +blood cultures with severe back pain for one week , receiving IV antibiotics. Plan: Despite having a worse looking MRI comparing the one from yesterday to the one on admission, with more enhancement in the ventral epidural space at L4/L5/S1, her pain is better, despite having stopped Toradol a few days prior. She does not have evidence of cauda equina syndrome but I believe her pain is connected to her Serratia infection. Clinically she appears to be improving. Recommend repeat MRI L-spine with contrast in one week. If pain gets worse or she develops cauda equina syndrome, please contact us back. Discussed with Dr. Mendez. Patient is already on two antibiotics (Cefepime, Levaquin), additional antibiotics do not make sense.
[2017-11-16] MEDS: Senna/Docusate Sodium 8.6/50 MG Tablet PO SCH ×2 (08:59→20:02)
[2017-11-16] MEDS: amLODIPine 10 MG Tablet PO SCH (08:59)
[2017-11-16] MEDS: Polyethylene Glycol 3350 17 GM Packet PO SCH ×2 (09:00→19:59)
[2017-11-16] MEDS: Gabapentin 100 MG Capsule PO SCH ×3 (09:00→18:24)
[2017-11-16] MEDS: Enoxaparin Inj 40 MG/0.4 ML Syringe SQ SCH (09:00)
[2017-11-16 11:40] LABS: Anion Gap 7 meq/L (5-15); Blood Urea Nitrogen 16 mg/dL (7-18); Calcium 9.6 mg/dL (8.5-10.1); Carbon Dioxide 24.3 meq/L (21.0-32.0); Chloride 96 meq/L (98-107); Glomerular Filtration Rate Greater Than 89 mL/min (>89); Glucose,Random 83 mg/dL (74-106); Sodium 127 meq/L (136-145)
[2017-11-16 11:42] LABS: Potassium 5.9 meq/L (3.5-5.1)
[2017-11-17] MEDS: Temazepam 15 MG Capsule PO PRN (00:05)
[2017-11-17] MEDS: HYDROmorphone PF Inj 2 MG/ML Vial IV.PUSH PRN ×5 (02:50→21:04)
--- NOTE | 2017-11-17 07:29 | P.PN ---
Subjective Interval history: Follow-up on patient with Serratia bacteremia and back pain. Patient seen and examined. She lost her IV access again. Patient has a diffuse itchy erythematous papular rash over body that started yesterday. She denies any fever or chills. She denies any cough, chest pain or SOB. She denies any nausea or vomiting. She is urinating 3x/day. She remains constipated but is passing flatus. Physical Exam Vital signs: Vital Signs 11/16/17 08:00 11/16/17 12:00 11/16/17 16:00 Temperature 97.8 F 98.1 F 98.3 F Pulse Rate 95 H 106 H 114 H Respiratory Rate 18 Blood Pressure 120/80 102/65 128/72 Pulse Oximetry 98 94 L 95 11/16/17 20:00 11/17/17 00:00 11/17/17 04:00 Temperature 98 F 98 F 97.8 F Pulse Rate 110 H 114 H 101 H Respiratory Rate 18 Blood Pressure 106/70 110/71 93/61 L Pulse Oximetry 97 97 95 Intake & Output 11/16/17 11/17/17 11/17/17 18:59 06:59 18:59 Intake Total 100 / 100 250 / 250 Balance 100 / 100 250 / 250 Intake: IV 100 / 100 250 / 250 Maxipime Inj 2,000 MG In NS Inj 100 / 100 100 / 100 100 ML @ 200 mls/hr IV.SIG Q8H [facility] Rx#:[id number] Levaquin 750 mg Premix Inj 150 150 / 150 ML @ 100 mls/hr IV.SIG Q24H [facility] Rx#:[id number] Other: # Voids 2 Date of Last Bowel Movement 11/16/17 11/16/17 # Bowel Movements 1 Narrative: GENERAL: WDWN female patient, INAD. Awake and alert. Oriented x 4. SKIN: Warm and dry. +diffuse pruritic erythematous papular rash on arms and legs. HEENT: Atraumatic. Normocephalic. Pupils equal and round. No scleral icterus. No injection or drainage. No nasal bleeding or discharge. Mucous membranes pink and moist. NECK: Trachea midline. CARDIOVASCULAR: Tachycardic. No murmur appreciated. RESPIRATORY: No accessory muscle use. Clear to auscultation. Breath sounds equal bilaterally. GASTROINTESTINAL: Abdomen soft, nondistended. +BS. +mild RLQ tenderness to palpation. MUSCULOSKELETAL: Extremities without clubbing, cyanosis, or edema. No obvious deformities. Decreased ROM in all planes lumbar spine. +Left SLR. Motor function intact distally. NEUROLOGICAL: Awake and alert. No obvious cranial nerve deficits. Motor grossly within normal limits. Nonfocal. Normal speech. PSYCHIATRIC: Calm and pleasant. Appropriate mood and affect. - Urinary Catheter Management Indwelling Urethral Catheter Cath placed during this visit: yes, but has since been removed by the nurse Reason for continuing: Decision to DC catheter Removal date: 11/10/17 Removal time: 11:12 Results - Labs CBC & Chem 7: 11/14/17 21:30 11/17/17 09:41 Laboratory Results - last 24 hr 11/16/17 11:05 Sodium 127 L Potassium 5.9 H D Chloride 96 L Carbon Dioxide 24.3 Anion Gap 7 BUN 16 Creatinine 0.71 Estimated GFR Greater than 89 Random Glucose 83 Calcium 9.6 D Microbiology 11/11/17 11:30 Blood - Peripheral Aerobic Blood Culture - Final No growth in 5 days 11/11/17 11:30 Blood - Peripheral Anaerobic Blood Culture - Final QNS - See aerobic report. 11/11/17 11:24 Blood - Peripheral Aerobic Blood Culture - Final No growth in 5 days 11/11/17 11:24 Blood - Peripheral Anaerobic Blood Culture - Final QNS - See aerobic report. 11/11/17 11:18 Blood - Peripheral Aerobic Blood Culture - Final No growth in 5 days 11/11/17 11:18 Blood - Peripheral Anaerobic Blood Culture - Final QNS - See aerobic report. 11/11/17 11:36 Blood - Peripheral Aerobic Blood Culture - Final No growth in 5 days 11/11/17 11:36 Blood - Peripheral Anaerobic Blood Culture - Final No growth in 5 days 11/14/17 18:35 Clean Catch Urine Urine Culture - Final No growth in 48 hours - Procedures None Assessment and Plan - Assessment (1) Bacterial infection due to Serratia Code(s): A49.8 - Other bacterial infections of unspecified site Status: Acute - Plan 42-year-old female who denies any chronic medical issues that presents with excruciating pain to her mid back. 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 Repeat MRI shows interval development at L5-S1, new endplate edema at L5-S1. Evaluated by NS, appreciate recommendations - repeat MRI L spine in one week. Continue on IV abx Levaquin and Cefepime per ID repeat BCX negative New onset rash suspect drug rxn Give dose of Benadryl now and prn Will d/w ID ?change abx regimen Back pain, acute onset Association with fevers points to risk of infection, elevated CRP, no leukocytosis Blood cultures with serratia marcescens Initial imaging negative for discitis/osteomyelitis. +facet arthropathy on MRI. Repeat imaging shows worsening. Appreciate neurology consult, seen by Dr Del Valle. Continue gabapentin Continue pain management. Continue prn IV Dilaudid 1mg q3h for breakthrough pain. PRN [place]. Continue with PT. Able to ambulate 40ft with PT yesterday. Hypertensive, suspect in part situational secondary to pain, now hypotensive No hx of HTN 11/14 BP now running higher 186/110 11/15 BP improved but still uncontrolled. Increase Norvasc to 10mg daily 11/17 BP 93/61, hold Norvasc Clonidine prn with parameters Continue to monitor BP and will initiate scheduled treatment if indicated Bacteruria patient is asymptomatic UCX with no growth Hyponatremia, asymptomatic on fluid restriction Na improved Continue to monitor as indicated Hyperkalemia Hemolyzed sample repeat K 4.7 Constipation Continue MiraLAX to BID Continue on Radha Colace BID Give Mag citrate and fleets enema now Monitor for BM DVT prophylaxis Lovenox sq Code Status: FULL Discussed Condition With: patient, nursing staff, Dr. Braswell Discharge Planning: Not ready for discharge. Discharge pending ID clearance and clinical improvement.
[2017-11-17] MEDS: Gabapentin 100 MG Capsule PO SCH ×3 (08:32→17:00)
[2017-11-17] MEDS: Senna/Docusate Sodium 8.6/50 MG Tablet PO SCH ×2 (08:32→21:05)
[2017-11-17] MEDS: Enoxaparin Inj 40 MG/0.4 ML Syringe SQ SCH (08:32)
[2017-11-17] MEDS: Polyethylene Glycol 3350 17 GM Packet PO SCH ×2 (08:32→21:05)
[2017-11-17] MEDS: amLODIPine 10 MG Tablet PO SCH (08:34)
[2017-11-17] MEDS ORDERED: Sod Phosphate/Sod Biphosphate (Adult) Enema 133 ML Bottle RECTAL ONE (08:48)
[2017-11-17] MEDS ORDERED: Magnesium Citrate Liq 300 ML Bottle PO ONE (08:51)
[2017-11-17 11:13] LABS: Anion Gap 7 meq/L (5-15); Blood Urea Nitrogen 17 mg/dL (7-18); Calcium 9.2 mg/dL (8.5-10.1); Carbon Dioxide 29.1 meq/L (21.0-32.0); Chloride 98 meq/L (98-107); Glomerular Filtration Rate Greater Than 89 mL/min (>89); Glucose,Random 88 mg/dL (74-106); Potassium 4.7 meq/L (3.5-5.1); Sodium 134 meq/L (136-145)
[2017-11-17] MEDS: Famotidine 20 MG Tablet PO SCH ×2 (14:30→21:05)
--- NOTE | 2017-11-17 15:01 | P.PNNS ---
Subjective Interval history: patient reports improved pain control. denies any leg weakness or bb incontinence Physical Exam Vital signs: Vital Signs 11/16/17 16:00 11/16/17 20:00 11/17/17 00:00 Temperature 98.3 F 98 F 98 F Pulse Rate 114 H 110 H 114 H Respiratory Rate 18 20 18 Blood Pressure 128/72 106/70 110/71 Pulse Oximetry 95 97 97 11/17/17 04:00 11/17/17 08:00 11/17/17 12:00 Temperature 97.8 F 97.7 F 97.8 F Pulse Rate 101 H 107 H 99 H Respiratory Rate 18 20 20 Blood Pressure 93/61 L 113/74 109/68 Pulse Oximetry 95 99 99 Intake & Output 11/16/17 11/17/17 11/17/17 18:59 06:59 18:59 Intake Total 100 / 100 250 / 250 Balance 100 / 100 250 / 250 Weight 45.3 kg Intake: IV 100 / 100 250 / 250 Maxipime Inj 2,000 MG In NS Inj 100 / 100 100 / 100 100 ML @ 200 mls/hr IV.SIG Q8H [facility] Rx#:[id number] Levaquin 750 mg Premix Inj 150 150 / 150 ML @ 100 mls/hr IV.SIG Q24H [facility] Rx#:[id number] Other: # Voids 2 Date of Last Bowel Movement 11/16/17 11/16/17 11/16/17 # Bowel Movements 1 Narrative: E4 Aox3 FCCx4 5/5 strength in the UEs and LEs no sensory deficits in the LEs. - Urinary Catheter Management Indwelling Urethral Catheter Cath placed during this visit: yes, but has since been removed by the nurse Reason for continuing: Decision to DC catheter Removal date: 11/10/17 Removal time: 11:12 Assessment and Plan - Plan 42yoF with known serratia bacteremia found to have MR significant for lumbar osteomyelitis/epidural abscess -patient neurologically intact without bb incontinence. therefore no indication for surgical intervention -recommend continued medical management of infection -notify neurosurgery service if any change in neurological status
[2017-11-18] MEDS: HYDROmorphone PF Inj 2 MG/ML Vial IV.PUSH PRN ×4 (00:12→10:51)
[2017-11-18] MEDS: Famotidine 20 MG Tablet PO SCH ×2 (09:05→20:15)
[2017-11-18] MEDS: Polyethylene Glycol 3350 17 GM Packet PO SCH ×2 (09:05→20:15)
[2017-11-18] MEDS: Enoxaparin Inj 40 MG/0.4 ML Syringe SQ SCH (09:05)
[2017-11-18] MEDS: Senna/Docusate Sodium 8.6/50 MG Tablet PO SCH ×2 (09:05→20:15)
[2017-11-18] MEDS: Gabapentin 100 MG Capsule PO SCH ×3 (09:05→17:54)
--- NOTE | 2017-11-18 11:46 | P.PN ---
Subjective Interval history: Follow-up on patient with Serratia bacteremia and back pain. Patient seen and examined. Still with diffuse pruritic rash but improving some. She denies any other complaints. No fever or chills. No chest pain or SOB. No N/V or abdominal pain. Back pain improved. Physical Exam Vital signs: Vital Signs 11/17/17 12:00 11/17/17 16:00 11/17/17 20:00 Temperature 97.8 F 97.5 F L 97.5 F L Pulse Rate 99 H 110 H 99 H Respiratory Rate 20 20 20 Blood Pressure 109/68 103/62 111/68 Pulse Oximetry 99 97 98 11/18/17 00:00 11/18/17 04:00 11/18/17 06:21 Temperature 98 F 97.4 F L Pulse Rate 90 100 H Respiratory Rate 18 18 18 Blood Pressure 112/72 111/70 Pulse Oximetry 97 97 11/18/17 07:51 11/18/17 08:00 Temperature 97.6 F Pulse Rate 89 Respiratory Rate 15 16 Blood Pressure 119/70 Pulse Oximetry 96 Intake & Output 11/17/17 11/18/17 11/18/17 18:59 06:59 18:59 Intake Total 150 / 150 Balance 150 / 150 Weight 45.3 kg Intake: IV 150 / 150 Levaquin 750 mg Premix Inj 150 150 / 150 ML @ 100 mls/hr IV.SIG Q24H [facility] Rx#:[id number] Other: # Voids 2 1 Date of Last Bowel Movement 11/16/17 Narrative: GENERAL: WDWN female patient. Awake and alert. Oriented x 4. Not in any distress. SKIN: Warm and dry. +diffuse pruritic erythematous papular rash on arms and legs, improving. HEENT: Atraumatic. Normocephalic. Pupils equal and round. No scleral icterus. No injection or drainage. No nasal bleeding or discharge. Mucous membranes pink and moist. NECK: Trachea midline. CARDIOVASCULAR: Regular rate and rhythm. No murmur appreciated. RESPIRATORY: Nonlabored. Clear to auscultation. Breath sounds equal bilaterally. GASTROINTESTINAL: Abdomen soft, nondistended, nontender. +BS. MUSCULOSKELETAL: Extremities without clubbing, cyanosis, or edema. No obvious deformities. Decreased ROM in all planes lumbar spine. Motor function intact distally. NEUROLOGICAL: Awake and alert. No obvious cranial nerve deficits. Motor grossly within normal limits. Nonfocal. Normal speech. PSYCHIATRIC: Calm and pleasant. Appropriate mood and affect. - Urinary Catheter Management Indwelling Urethral Catheter Cath placed during this visit: yes, but has since been removed by the nurse Reason for continuing: Decision to DC catheter Removal date: 11/10/17 Removal time: 11:12 Results - Labs CBC & Chem 7: 11/14/17 21:30 11/17/17 09:41 - Procedures None Assessment and Plan - Assessment (1) Bacterial infection due to Serratia Code(s): A49.8 - Other bacterial infections of unspecified site Status: Acute - Plan 42-year-old female who denies any chronic medical issues that presents with excruciating pain to her mid back. 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 Repeat MRI shows interval development at L5-S1, new endplate edema at L5-S1. Evaluated by NS, appreciate recommendations - repeat MRI L spine in one week. Continue on IV abx Levaquin per ID repeat BCX negative New onset rash, improving suspect drug rxn DW ID, Cefepime discontinued Continued on scheduled Benadryl and Pepcid Back pain, acute onset Association with fevers points to risk of infection, elevated CRP, no leukocytosis Blood cultures with serratia marcescens Initial imaging negative for discitis/osteomyelitis. +facet arthropathy on MRI. Repeat imaging shows worsening. Appreciate neurology consult, seen by Dr Del Valle. Continue gabapentin Continue pain management. Continue on prn [place]. Hold IV Dilaudid. Discussed with patient her increased risk of narcotic dependency given her previous hx of IVDU. Continue with PT. Able to ambulate 40ft with PT. Hypertensive, suspect in part situational secondary to pain, now hypotensive No hx of HTN Started on Norvasc 2/2 BP running persistently high. BP improved. Norvasc discontinued. Clonidine prn with parameters Continue to monitor BP and will initiate scheduled treatment if indicated Bacteruria patient is asymptomatic UCX with no growth Hyponatremia, asymptomatic on fluid restriction Na improved Continue to monitor as indicated Hyperkalemia Hemolyzed sample repeat K 4.7 Constipation, improving Continue MiraLAX to BID Continue on Radha Colace BID Monitor for BM DVT prophylaxis Lovenox sq Code Status: FULL Discussed Condition With: patient, nursing staff, Dr. Braswell Discharge Planning: Not ready for discharge. Discharge pending ID clearance and clinical improvement.
--- NOTE | 2017-11-18 14:19 | ECG ---
Date Performed: 11/17/2017 Time Performed: 17:21:29 PTAGE: 42 years EKG: Sinus tachycardia Otherwise within normal limits ABNORMAL RHYTHM ECG NO PREVIOUS TRACING DOCTOR: Curtis Queen Interpretating Date/Time 11/18/2017 14:18:55
--- NOTE | 2017-11-18 15:52 | P.PNID ---
Subjective Remarks: ID Xcover for 42 yo female developed acute low back pain after surfing Presented with high fever, chills Blood clx showed high grade bacteremia due to Serratia marcescens Pt has MRI of entire spine and showed no osteo or diskitis She cont to complain of low back pain but thinks it improved ESR is high Lymphopenia noted. Neurophil count wnl Pt denies current drug use, but acknowledged IVDU 6-7 yrs ago Overnight events reviewed. fever resolved pt repeat MRI positive for inflammatory process, no abscess BCX negative. Rash improved, bearly visible. Antibiotics: Levaquin IV Lines: Lines ok Past Medical History: reviewed Allergies/Adverse Reactions: Allergies No Known Allergies Allergy (Verified 11/07/17 07:45) Objective Vital Signs 11/17/17 16:00 11/17/17 20:00 11/18/17 00:00 Temperature 97.5 F L 97.5 F L 98 F Pulse Rate 110 H 99 H 90 Respiratory Rate 20 20 18 Blood Pressure 103/62 111/68 112/72 Pulse Oximetry 97 98 97 11/18/17 04:00 11/18/17 06:21 11/18/17 07:51 Temperature 97.4 F L Pulse Rate 100 H Respiratory Rate 18 18 15 Blood Pressure 111/70 Pulse Oximetry 97 11/18/17 08:00 11/18/17 12:00 Temperature 97.6 F 97.8 F Pulse Rate 89 91 H Respiratory Rate 16 18 Blood Pressure 119/70 108/58 L Pulse Oximetry 96 96 Intake & Output 11/17/17 11/18/17 11/18/17 18:59 06:59 18:59 Intake Total 150 / 150 Balance 150 / 150 Weight 45.3 kg Intake: IV 150 / 150 Levaquin 750 mg Premix Inj 150 150 / 150 ML @ 100 mls/hr IV.SIG Q24H [facility] Rx#:[id number] Other: # Voids 2 1 2 Date of Last Bowel Movement 11/16/17 11/11/17 11:30 Blood - Peripheral Aerobic Blood Culture - Final No growth in 5 days 11/11/17 11:30 Blood - Peripheral Anaerobic Blood Culture - Final QNS - See aerobic report. 11/11/17 11:24 Blood - Peripheral Aerobic Blood Culture - Final No growth in 5 days 11/11/17 11:24 Blood - Peripheral Anaerobic Blood Culture - Final QNS - See aerobic report. 11/11/17 11:18 Blood - Peripheral Aerobic Blood Culture - Final No growth in 5 days 11/11/17 11:18 Blood - Peripheral Anaerobic Blood Culture - Final QNS - See aerobic report. 11/11/17 11:36 Blood - Peripheral Aerobic Blood Culture - Final No growth in 5 days 11/11/17 11:36 Blood - Peripheral Anaerobic Blood Culture - Final No growth in 5 days 11/14/17 18:35 Clean Catch Urine Urine Culture - Final No growth in 48 hours Lab - Chemistry Results 11/17/17 09:41 Sodium 134 L Potassium 4.7 D Chloride 98 Carbon Dioxide 29.1 Anion Gap 7 BUN 17 Creatinine 0.71 Estimated GFR Greater than 89 Random Glucose 88 Calcium 9.2 Imaging: ITS Impressions Abdomen/Pelvis CT 11/07/17 07:48 CONCLUSION: 1. Nonobstructive bowel gas pattern with moderate amount of stool throughout the colon. No oral contrast was given significantly limiting the visualization of the bowel mesentery in this patient with limited mesenteric fat. 2. The gallbladder is unremarkable in appearance. Thoracic Spine MRI 11/09/17 00:00 CONCLUSION: 1. Small left paracentral disc protrusion at T6-7 with minimal encroachment on the left lateral recess. No significant canal or foraminal stenosis. No abnormal enhancement postcontrast. No fracture or spondylolisthesis. Cervical Spine MRI 11/09/17 12:35 CONCLUSION: 1. Mild degenerative disc disease. No canal or significant foraminal stenosis. No cord signal abnormality. Head MRI 11/09/17 12:35 CONCLUSION: 1. Negative MR Brain with and without contrast. SPECT Scan-Bone NM 11/12/17 00:00 CONCLUSION: 1. Pars defect L5-S1. 2. There is section CT with oblique reconstructions could help confirm if this remains symptomatic. 3. I do not see evidence for inflammatory process. Abdomen X-Ray 11/14/17 00:00 CONCLUSION: 1. Large amount stool in the proximal colon. 2. Gaseous distention of the colon down to the distal descending. The sigmoid and rectal vault are decompressed. Diagnostic considerations include recent evacuation of the distal colon with an element of constipation versus distal colonic obstruction. 3. No pneumoperitoneum. Lumbar Spine MRI 11/14/17 00:00 CONCLUSION: 1. Interval development of periventricular haziness anteriorly at L5-S1 and similar epidural haziness from L5 through S2. The same areas show intense enhancement following gadolinium administration and are characteristic of an inflammatory phlegmon. No obvious nonenhancing abscess at this time, however. 2. Also new from the prior, there appears to be some developing endplate edema at L5-S1 but the overlying cortex appears to be intact. This may be reactive at this point with no obvious MR signs of osteomyelitis. 3. Bilateral facet hypertrophy at L4-5 and L5-S1. In combination with the inflammatory phlegmon at the lumbosacral junction, there may be some compromise of the L5 nerve roots bilaterally. 4. Some distention of the a ascending colon. Physical Exam: GENERAL: Well-nourished well-developed, not in acute distress SKIN: Cool and dry, no generalized rash HEAD: Atraumatic. Normocephalic. No temporal or scalp tenderness. EYES: Pupils equal round and reactive. Scleral icterus. No injection or drainage. No petechia ENT: Nothing abnormal detected NECK: Trachea midline. Supple, nontender, no meningeal signs. CARDIOVASCULAR: HS audible. RESPIRATORY: Clear to auscultation bilaterally. GASTROINTESTINAL: Abdomen soft nontender. MUSCULOSKELETAL: Extremities without clubbing, cyanosis. NEUROLOGICAL: Alert oriented 3. Nonfocal. Psych cooperative IV line sites ok. Assessment and Plan - Plan High grade Serratia bacteremia Lower back pain, she clearly localizing towards lower back ? Early osteo, diskitis of L spine 2 D echo negative Rash: drug rash from Cefepime IV. Recs: Continue Levaquin IV for now. Benadryl prn. to resume care in am. Needs long course of antibiotics: consider rechallenge with Ceftriaxone and benadryl to see if she can tolerate.
--- NOTE | 2017-11-19 07:15 | P.PN ---
Subjective Interval history: Follow-up on patient with Serratia bacteremia and back pain. Patient seen and examined. Complaining of more back pain today. She denies any fever or chills. Denies any new weakness, numbness or tingling. Denies any saddle paresthesias. Physical Exam Vital signs: Vital Signs 11/18/17 07:51 11/18/17 08:00 11/18/17 12:00 Temperature 97.6 F 97.8 F Pulse Rate 89 91 H Respiratory Rate 15 16 18 Blood Pressure 119/70 108/58 L Pulse Oximetry 96 96 11/18/17 16:00 11/18/17 19:26 11/18/17 20:00 Temperature 97.4 F L 98.5 F Pulse Rate 94 H 109 H Respiratory Rate 17 18 18 Blood Pressure 111/65 115/78 Pulse Oximetry 98 97 11/19/17 00:00 11/19/17 04:00 Temperature 97.9 F 97.6 F Pulse Rate 98 H 90 Respiratory Rate 18 18 Blood Pressure 108/74 124/79 Pulse Oximetry 98 97 Intake & Output 11/18/17 11/19/17 11/19/17 18:59 06:59 18:59 Intake Total 960 / 960 150 / 150 Balance 960 / 960 150 / 150 Weight 45.3 kg Intake: IV 0 / 0 150 / 150 Maxipime Inj 2,000 MG In NS Inj 0 / 0 100 ML @ 200 mls/hr IV.SIG Q8H [facility] Rx#:[id number] Levaquin 750 mg Premix Inj 150 150 / 150 ML @ 100 mls/hr IV.SIG Q24H [facility] Rx#:[id number] Oral 960 / 960 Other: # Voids 2 2 # Bowel Movements 0 Narrative: GENERAL: WDWN female patient, INAD. Awake and alert. Oriented x 4. SKIN: Warm and dry. No generalized rash. HEENT: Atraumatic. Normocephalic. Pupils equal and round. No scleral icterus. No injection or drainage. No nasal bleeding or discharge. Mucous membranes pink and moist. NECK: Trachea midline. CARDIOVASCULAR: Regular rate and rhythm. No murmur appreciated. RESPIRATORY: Nonlabored. Clear to auscultation. Breath sounds equal bilaterally. GASTROINTESTINAL: Abdomen soft, nondistended, nontender. +BS. MUSCULOSKELETAL: Extremities without clubbing, cyanosis, or edema. No obvious deformities. Decreased ROM in all planes lumbar spine. Motor function intact distally. NEUROLOGICAL: Awake and alert. No obvious cranial nerve deficits. Motor grossly within normal limits. Nonfocal. Normal speech. PSYCHIATRIC: Calm and pleasant. Appropriate mood and affect. - Urinary Catheter Management Indwelling Urethral Catheter Cath placed during this visit: yes, but has since been removed by the nurse Reason for continuing: Decision to DC catheter Removal date: 11/10/17 Removal time: 11:12 Results - Labs CBC & Chem 7: 11/14/17 21:30 11/17/17 09:41 - Procedures None Assessment and Plan - Assessment (1) Bacterial infection due to Serratia Code(s): A49.8 - Other bacterial infections of unspecified site Status: Acute - Plan 42-year-old female who denies any chronic medical issues that presents with excruciating pain to her mid back. 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 Repeat MRI shows interval development at L5-S1, new endplate edema at L5-S1. Evaluated by NS, appreciate recommendations - repeat MRI L spine in one week. Continue on IV abx Levaquin per ID. ID discharge plan pending. repeat BCX negative New onset rash, drug rxn, resolved Cefepime discontinued Treated with scheduled Benadryl and Pepcid Back pain, acute onset Association with fevers points to risk of infection, elevated CRP, no leukocytosis Blood cultures with serratia marcescens Initial imaging negative for discitis/osteomyelitis. +facet arthropathy on MRI. Repeat imaging shows worsening. Appreciate neurology consult, seen by Dr Del Valle. Continue gabapentin Continue pain management. Continue on prn [place]. Hold IV Dilaudid. Discussed with patient her increased risk of narcotic dependency given her previous hx of IVDU. Continue with PT. Able to ambulate 40ft with PT. 11/19 off IV Dilaudid. C/O severe back pain. BP elevated, tachycardic. Give one time dose of Toradol. D/C [place] and escalate to Percocet. Hypertensive, suspect in part situational secondary to pain, now hypotensive No hx of HTN Started on Norvasc 2/2 BP running persistently high. BP improved. Norvasc discontinued. Clonidine prn with parameters Continue to monitor BP and will initiate scheduled treatment if indicated Bacteruria patient is asymptomatic UCX with no growth Constipation, improving Hx of IBS constipation type Continue MiraLAX to BID Continue on Radha Colace BID Monitor for BM DVT prophylaxis Lovenox sq Code Status: FULL Discussed Condition With: patient, nursing staff, Dr. Arriaga Discharge Planning: Not ready for discharge. Discharge pending ID clearance.
[2017-11-19] MEDS: Gabapentin 100 MG Capsule PO SCH ×3 (08:55→18:42)
[2017-11-19] MEDS: Enoxaparin Inj 40 MG/0.4 ML Syringe SQ SCH (08:55)
[2017-11-19] MEDS: Famotidine 20 MG Tablet PO SCH ×2 (08:55→21:51)
[2017-11-19] MEDS: Polyethylene Glycol 3350 17 GM Packet PO SCH ×2 (08:57→21:51)
[2017-11-19] MEDS: Senna/Docusate Sodium 8.6/50 MG Tablet PO SCH ×2 (08:57→21:52)
[2017-11-19] MEDS ORDERED: Ketorolac Inj 30 MG/ML (IVP) Vial IV.PUSH ONE (12:30)
[2017-11-19] MEDS: oxyCODONE/Acetaminophen 10/325 Tablet PO PRN ×2 (13:07→22:32)
--- NOTE | 2017-11-19 15:36 | P.PNID ---
Subjective Remarks: ID Xcover for Pt developped pruritic rash over weekend which resolved with discontinuation of cefepime No fever C/O worsening of L sided lower back pain NS intput appreciated Antibiotics: Levaquin IV Lines: Lines ok Past Medical History: reviewed Allergies/Adverse Reactions: Allergies No Known Allergies Allergy (Verified 11/07/17 07:45) Objective Vital Signs 11/18/17 16:00 11/18/17 19:26 11/18/17 20:00 Temperature 97.4 F L 98.5 F Pulse Rate 94 H 109 H Respiratory Rate 17 18 18 Blood Pressure 111/65 115/78 Pulse Oximetry 98 97 11/19/17 00:00 11/19/17 04:00 11/19/17 08:00 Temperature 97.9 F 97.6 F 98.3 F Pulse Rate 98 H 90 101 H Respiratory Rate 18 18 17 Blood Pressure 108/74 124/79 144/87 H Pulse Oximetry 98 97 95 11/19/17 12:00 11/19/17 14:12 Temperature 97.2 F L Pulse Rate 106 H Respiratory Rate 17 18 Blood Pressure 120/81 Pulse Oximetry Intake & Output 11/18/17 11/19/17 11/19/17 18:59 06:59 18:59 Intake Total 960 / 960 150 / 150 Balance 960 / 960 150 / 150 Weight 45.3 kg Intake: IV 0 / 0 150 / 150 Maxipime Inj 2,000 MG In NS Inj 0 / 0 100 ML @ 200 mls/hr IV.SIG Q8H [facility] Rx#:[id number] Levaquin 750 mg Premix Inj 150 150 / 150 ML @ 100 mls/hr IV.SIG Q24H [facility] Rx#:[id number] Oral 960 / 960 Other: # Voids 2 2 # Bowel Movements 0 Imaging: ITS Impressions Abdomen/Pelvis CT 11/07/17 07:48 CONCLUSION: 1. Nonobstructive bowel gas pattern with moderate amount of stool throughout the colon. No oral contrast was given significantly limiting the visualization of the bowel mesentery in this patient with limited mesenteric fat. 2. The gallbladder is unremarkable in appearance. Thoracic Spine MRI 11/09/17 00:00 CONCLUSION: 1. Small left paracentral disc protrusion at T6-7 with minimal encroachment on the left lateral recess. No significant canal or foraminal stenosis. No abnormal enhancement postcontrast. No fracture or spondylolisthesis. Cervical Spine MRI 11/09/17 12:35 CONCLUSION: 1. Mild degenerative disc disease. No canal or significant foraminal stenosis. No cord signal abnormality. Head MRI 11/09/17 12:35 CONCLUSION: 1. Negative MR Brain with and without contrast. SPECT Scan-Bone NM 11/12/17 00:00 CONCLUSION: 1. Pars defect L5-S1. 2. There is section CT with oblique reconstructions could help confirm if this remains symptomatic. 3. I do not see evidence for inflammatory process. Abdomen X-Ray 11/14/17 00:00 CONCLUSION: 1. Large amount stool in the proximal colon. 2. Gaseous distention of the colon down to the distal descending. The sigmoid and rectal vault are decompressed. Diagnostic considerations include recent evacuation of the distal colon with an element of constipation versus distal colonic obstruction. 3. No pneumoperitoneum. Lumbar Spine MRI 11/14/17 00:00 CONCLUSION: 1. Interval development of periventricular haziness anteriorly at L5-S1 and similar epidural haziness from L5 through S2. The same areas show intense enhancement following gadolinium administration and are characteristic of an inflammatory phlegmon. No obvious nonenhancing abscess at this time, however. 2. Also new from the prior, there appears to be some developing endplate edema at L5-S1 but the overlying cortex appears to be intact. This may be reactive at this point with no obvious MR signs of osteomyelitis. 3. Bilateral facet hypertrophy at L4-5 and L5-S1. In combination with the inflammatory phlegmon at the lumbosacral junction, there may be some compromise of the L5 nerve roots bilaterally. 4. Some distention of the a ascending colon. Physical Exam: GENERAL: Well-nourished well-developed, not in acute distress SKIN: Cool and dry, no generalized rash HEAD: Atraumatic. Normocephalic. No temporal or scalp tenderness. EYES: Pupils equal round and reactive. Scleral icterus. No injection or drainage. No petechia ENT: Nothing abnormal detected NECK: Trachea midline. Supple, nontender, no meningeal signs. CARDIOVASCULAR: HS audible. RESPIRATORY: Clear to auscultation bilaterally. GASTROINTESTINAL: Abdomen soft nontender. MUSCULOSKELETAL: Extremities without clubbing, cyanosis. Tender to palpation lower back pain on the L NEUROLOGICAL: Alert oriented 3. Nonfocal. Psych cooperative IV line sites ok. Assessment and Plan - Plan High grade Serratia bacteremia Lower back pain, she clearly localizing towards lower back Phlegmone diskitis of L spine 2 D echo negative Rash: drug rash from Cefepime IV. Recs: Continue Levaquin IV for now. repeat MRI - if better or no change will dc on Levaquin dw case mngr and RN add cefepime to allergies
[2017-11-19] MEDS ORDERED: Gadobutrol PF 2 MMOL/2 ML Vial (for RAD) IV.SIG ONE (21:02)
--- NOTE | 2017-11-19 21:40 | MR ---
EXAM DATE: 11/19/2017 9:16 PM EDT AGE/SEX: 42 years / Female INDICATIONS: Abscess. Low back pain. CLINICAL DATA: This is the patient's subsequent encounter. Patient reports that signs and symptoms h ave been present for 1 week and indicates a pain score of 5/10. MEDICAL/SURGICAL HISTORY: None. Hysterectomy. section. Ankle sx. COMPARISON: [facility] – [place], LUMBAR SPINE W & W/O CONTRAST, 11/14/2017. . TECHNIQUE: Multiplanar, multisequence MRI examination of the lumbar spine was performed without and with 4.00 ml Gadavist (gadobutrol) contrast as a single exam dose. FINDINGS: Comparison is made to an MRI of the lumbar spine with and without contrast performed 5 days ago. The prior MRI examination demonstrated enhancing soft tissue in the anterior epidural space extending fro m L4 through S1, enhancement in the marrow of the posterior L5 and S1 vertebral bodies, and enhancing hazy soft tissue anterior to the L5 and S1 vertebral bodies. On today's examination, there has been a mild loss in the height of the posterior L5-S1 interspace an d loss of signal within the posterior one third nucleus pulposus. On the postcontrast images, there i s enhancement which appears to cross the posterior one third of the L5-S1 interspace suggesting new i nvolvement of the disc. There is also increasing degree of enhancement in the posterior one third of the L5 and S1 vertebral body marrow. The enhancing soft tissue posterior to L5 and S1 is similar in s ignal and degree of enhancement. There is a central protrusion of the disc within the enhancing epidu ral tissue. Similar degree of narrowing of the thecal sac compared to prior. There is no abnormal enh ancement within the conus or distal nerve roots. The irregular area of enhancing soft tissue ventral to the lumbar vertebral bodies is similar to prio r MRI. No new findings from T11 to L5. CONCLUSION: 1. Changing pattern of enhancement at the L5-S1 level, now with enhancement which crosses the silver brazer ior one third of the interspace and there is a increasing degree of postcontrast enhancement in the m arrow of the posterior one third of L5 and S1. This suggests the inflammatory process now involves th e posterior disc. The enhancing epidural tissue posterior to L5 and S1 is stable in size and degree o f enhancement. Electronically signed by: Ralph Peng MD 11/19/2017 9:38 PM EDT
[2017-11-19] MEDS: Temazepam 15 MG Capsule PO PRN (22:33)
[2017-11-20] MEDS: oxyCODONE/Acetaminophen 10/325 Tablet PO PRN ×3 (06:28→14:39)
[2017-11-20] MEDS: Gabapentin 100 MG Capsule PO SCH ×2 (09:18→12:30)
[2017-11-20] MEDS: Polyethylene Glycol 3350 17 GM Packet PO SCH (09:18)
[2017-11-20] MEDS: Enoxaparin Inj 40 MG/0.4 ML Syringe SQ SCH (09:19)
[2017-11-20] MEDS: Famotidine 20 MG Tablet PO SCH (09:20)
[2017-11-20] MEDS: Senna/Docusate Sodium 8.6/50 MG Tablet PO SCH (09:20)
[2017-11-20 09:39] VITALS: TEMP 98.4
--- NOTE | 2017-11-20 11:59 | P.PN ---
Subjective Interval history: Follow-up on patient with Serratia bacteremia. Patient seen and examined. Patient states her back pain is much improved. She states she is able to ambulate to the bathroom unassisted. She continues to have mostly left-sided back pain but is much better than when she came in. She denies any numbness or tingling in legs or feet. She denies any bowel or bladder difficulties. She denies any fever or chills. She denies any chest pain or shortness of breath. She denies any nausea, vomiting or abdominal pain. Physical Exam Vital signs: Vital Signs 11/19/17 12:00 11/19/17 14:12 11/19/17 16:00 Temperature 97.2 F L 97.9 F Pulse Rate 106 H 119 H Respiratory Rate 17 18 17 Blood Pressure 120/81 130/78 Pulse Oximetry 99 11/19/17 18:42 11/19/17 20:00 11/19/17 23:00 Temperature 98.7 F Pulse Rate 98 H Respiratory Rate 18 18 16 Blood Pressure 142/90 H Pulse Oximetry 98 11/20/17 08:00 Temperature 98.4 F Pulse Rate 104 H Respiratory Rate 16 Blood Pressure 155/108 H Pulse Oximetry 98 Intake & Output 11/19/17 11/20/17 11/20/17 18:59 06:59 18:59 Intake Total 1941 150 / 150 Balance 1941 150 / 150 Intake: IV 150 / 150 Levaquin 750 mg Premix Inj 150 150 / 150 ML @ 100 mls/hr IV.SIG Q24H [facility] Rx#:[id number] Oral 1941 Other: # Voids 6 Date of Last Bowel Movement 11/19/17 11/20/17 # Bowel Movements 4 Narrative: GENERAL: WDWN female patient, INAD. Awake and alert. Oriented x 4. Looks much improved. SKIN: Warm and dry. No generalized rash. HEENT: Atraumatic. Normocephalic. Pupils equal and round. No scleral icterus. No injection or drainage. No nasal bleeding or discharge. Mucous membranes pink and moist. NECK: Trachea midline. CARDIOVASCULAR: Regular rate and rhythm. No murmur appreciated. RESPIRATORY: Nonlabored. Clear to auscultation. Breath sounds equal bilaterally. GASTROINTESTINAL: Abdomen soft, nondistended, nontender. +BS. MUSCULOSKELETAL: Extremities without clubbing, cyanosis, or edema. No obvious deformities. ROM much improved. Motor function intact distally. NEUROLOGICAL: Awake and alert. No obvious cranial nerve deficits. Motor grossly within normal limits. Able to move all extremities spontaneously nonfocal. Normal speech. PSYCHIATRIC: Calm and pleasant. Appropriate mood and affect. - Urinary Catheter Management Indwelling Urethral Catheter Cath placed during this visit: yes, but has since been removed by the nurse Reason for continuing: Decision to DC catheter Removal date: 11/10/17 Removal time: 11:12 Results - Labs CBC & Chem 7: 11/14/17 21:30 11/17/17 09:41 - Imaging Impressions Lumbar Spine MRI 11/19/17 00:00 CONCLUSION: 1. Changing pattern of enhancement at the L5-S1 level, now with enhancement which crosses the posterior one third of the interspace and there is a increasing degree of postcontrast enhancement in the marrow of the posterior one third of L5 and S1. This suggests the inflammatory process now involves the posterior disc. The enhancing epidural tissue posterior to L5 and S1 is stable in size and degree of enhancement. - Procedures None Assessment and Plan - Assessment (1) Bacterial infection due to Serratia Code(s): A49.8 - Other bacterial infections of unspecified site Status: Acute - Plan 42-year-old female who denies any chronic medical issues that presents with excruciating pain to her mid back. 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 Repeat MRI shows interval development at L5-S1, new endplate edema at L5-S1. Evaluated by NS, appreciate recommendations - repeat MRI L spine in one week. Continue on IV abx Levaquin per ID. Repeat MRI 11/19 shows increased enhancement L5-S1, suggestive inflammatory process involves the disc. Enhancing epidural tissue posterior to L5 and S1 is stable. 11/[address] Mendez, patient may be discharged on oral Levaquin pending neurosurgery reevaluation considering new MRI findings. Dr. Mendez wants to speak with the patient directly prior to discharge. New onset rash, drug rxn, resolved Cefepime discontinued Treated with scheduled Benadryl and Pepcid New cefepime allergy documented Back pain, acute onset Association with fevers points to risk of infection, elevated CRP, no leukocytosis Blood cultures with serratia marcescens Initial imaging negative for discitis/osteomyelitis. +facet arthropathy on MRI. Repeat imaging shows worsening. Appreciate neurology consult, seen by Dr Del Valle. Continue gabapentin Continue pain management. Continue on prn [place]. Hold IV Dilaudid. Discussed with patient her increased risk of narcotic dependency given her previous hx of IVDU. Continue with PT. Able to ambulate 40ft with PT. Continue with Percocet prn pain Hypertensive, suspect in part situational secondary to pain, now hypotensive No hx of HTN Started on Norvasc 2/2 BP running persistently high. BP improved. Norvasc discontinued. Clonidine prn with parameters Continue to monitor BP and will initiate scheduled treatment if indicated Bacteruria patient is asymptomatic UCX with no growth Constipation, resolved Hx of IBS - constipation type DVT prophylaxis Lovenox sq Code Status: FULL Discussed Condition With: Patient, nursing staff, Dr. Mendez, Dr. Arriaga Discharge Planning: Possible discharge later today pending ID and neurosurgery clearance
[2017-11-20 12:42] LABS: Albumin 2.9 g/dL (3.4-5.0); Anion Gap 6 meq/L (5-15); Aspartate Aminotransferase 19 U/L (15-37); Blood Urea Nitrogen 16 mg/dL (7-18); Carbon Dioxide 28.8 meq/L (21.0-32.0); Chloride 103 meq/L (98-107); Glomerular Filtration Rate 83 mL/min (>89); Glucose,Random 113 mg/dL (74-106); Potassium 4.2 meq/L (3.5-5.1); Sodium 138 meq/L (136-145)
[2017-11-20 12:43] LABS: Baso % (Auto) 0.4 % (0.0-2.0); Eos # (Auto) 0.1 th/mm3 (0.0-0.4); Hematocrit 38.7 % (35.0-46.0); Hemoglobin 12.8 gm/dL (11.6-15.3); Lymph # (Auto) 1.5 th/mm3 (1.0-4.8); Lymph % (Auto) 24.4 % (9.0-44.0); Mean Corpuscular HGB Conc 33.2 % (32.0-36.0); Mean Corpuscular Hemoglobin 27.6 pg (27.0-34.0); Mean Corpuscular Volume 83.3 fL (80.0-100.0); Mean Platelet Volume 6.8 fL (7.0-11.0); Mono # (Auto) 0.5 th/mm3 (0.0-0.9); Mono % (Auto) 7.4 % (0.0-8.0); Neut # (Auto) 4.2 th/mm3 (1.8-7.7); Neut % (Auto) 65.8 % (16.0-70.0); Platelet Count 311 th/mm3 (150-450); Red Blood Count 4.65 mil/mm3 (4.00-5.30); Red Cell Distribution Width 13.7 % (11.6-17.2); White Blood Count 6.3 th/mm3 (4.0-11.0)
[2017-11-20 12:44] LABS: Alanine Aminotransferase 28 U/L (10-53); Alkaline Phosphatase 83 U/L (45-117); Total Protein 8.1 g/dL (6.4-8.2)
[2017-11-20 12:58] VITALS: BP 133/95; PULSE 148; RESP 22; O2SAT 99
--- NOTE | 2017-11-20 16:34 | P.DS ---
Date of admission: 11/07/17 13:36 Primary care physician: No Primary Care Physician Attending physician on discharge: Jesus Laney Corina Anticipated date of discharge: 11/20/17 Brief History from admission: This is a 42-year-old female who denies any chronic medical issues that presents with excruciating pain to her mid back. Onset of pain began yesterday when she awoke in her back was tender, spastic, aligned with onset of fevers. She suffered for a day and decided to come in for evaluation. She does not recall any injuries in the days leading up to this pain, denies falls, denies any twisting injury. She denies use of a new mattress or any new furniture. Prior to all of this she is very active, is a regular runner, and surfer. ER workup shows no leukocytosis, but markedly elevated CRP. Neurology was consulted and recommended MRI of the thoracic spine among other things. MRI of the lumbar spine was within normal limits. She denies any history of IV drug use. DS: Diagnosis - Discharge Diagnosis (1) Bacterial infection due to Serratia Status: Acute (2) Discitis of lumbar region Status: Acute (3) Fever Status: Acute (4) Back pain Status: Acute DS: Medications - Discharge Medications Prescriptions: hydrocodone-acetaminophen [[place]] 1 tab PO Q6H PRN #40 tab PRN Reason: Pain levofloxacin [Levaquin] 750 mg PO DAILY #45 tab DS: Summary Hospital Course: Patient admitted with complaints of fever and back pain. She also complained of numbness and tingling in bilateral feet. She denies any bowel or bladder difficulties. Blood cultures positive for Serratia Marcescens in all 4 bottles. Initial MRI of the lumbar spine did not show any evidence of discitis or osteomyelitis. Patient was seen in consult by neurology. Patient was seen in consultation by infectious disease and treated with IV cefepime and Levaquin. Echocardiogram did not show any vegetation. Bone scan was obtained and was negative. Patient continued to have significant back pain. Repeat MRI revealed increased enhancement L5-S1 suggestive of inflammatory process involving the disc as well as epidural tissue posterior to L5 and S1. She was seen in consultation by neurosurgery but no surgical intervention was recommended. Patient developed a drug reaction which resolved after IV cefepime was discontinued. Patient improved clinically. She was cleared for discharge by specialty services. Infectious disease, patient to continue on oral Levaquin following discharge for 6 weeks. Patient instructed to follow-up with Dr. Yvrose Escudero and Dr. Johnathon Ordaz as outpatient. Patient is having significant pain caused by lumbar discitis which will last more than 3 days. Trial of Tylenol has not helped. I believe that it is medically necessary to treat patients pain because it is affecting patients ability to function. Eforsce was utilized to review patient previous narcotic use history. - Time Spent with Patient Total time spent providing and/or coordinating discharge services: Greater than 30 minutes Exam Vital signs: Vital Signs 11/19/17 18:42 11/19/17 20:00 11/19/17 23:00 Temperature 98.7 F Pulse Rate 98 H Respiratory Rate 18 18 16 Blood Pressure 142/90 H Pulse Oximetry 98 11/20/17 08:00 11/20/17 12:00 Temperature 98.4 F 98.4 F Pulse Rate 104 H 148 H Respiratory Rate 16 22 Blood Pressure 155/108 H 133/95 H Pulse Oximetry 98 99 Intake & Output 11/19/17 11/20/17 11/20/17 18:59 06:59 18:59 Intake Total 1941 150 / 150 Balance 1941 150 / 150 Intake: IV 150 / 150 Levaquin 750 mg Premix Inj 150 150 / 150 ML @ 100 mls/hr IV.SIG Q24H [facility] Rx#:[id number] Oral 1941 Other: # Voids 6 Date of Last Bowel Movement 11/19/17 11/20/17 # Bowel Movements 4 Narrative: GENERAL: WDWN female patient, INAD. Awake and alert. Oriented x 4. SKIN: Warm and dry. No generalized rash. HEENT: Atraumatic. Normocephalic. Pupils equal and round. No scleral icterus. No injection or drainage. No nasal bleeding or discharge. Mucous membranes pink and moist. NECK: Trachea midline. CARDIOVASCULAR: Regular rate and rhythm. No murmur appreciated. RESPIRATORY: Nonlabored. Clear to auscultation. Breath sounds equal bilaterally. GASTROINTESTINAL: Abdomen soft, nondistended, nontender. +BS. MUSCULOSKELETAL: Extremities without clubbing, cyanosis, or edema. No obvious deformities. Decreased ROM in all planes lumbar spine. Motor function intact distally. NEUROLOGICAL: Awake and alert. No obvious cranial nerve deficits. Motor grossly within normal limits. Nonfocal. Normal speech. PSYCHIATRIC: Calm and pleasant. Appropriate mood and affect. Results Procedures completed during hospitalization: None Labs on day of discharge: Labs from last 24 hours 11/20/17 11/20/17 11:48 11:48 WBC 6.3 RBC 4.65 Hgb 12.8 Hct 38.7 MCV 83.3 MCH 27.6 MCHC 33.2 RDW 13.7 Plt Count 311 MPV 6.8 L Neut % (Auto) 65.8 Lymph % (Auto) 24.4 [place] % (Auto) 7.4 Eos % (Auto) 2.0 Baso % (Auto) 0.4 Neut # (Auto) 4.2 Lymph # (Auto) 1.5 [place] # (Auto) 0.5 Eos # (Auto) 0.1 Baso # (Auto) 0.0 WBC Differential . Differential Comment Auto diff final Sodium 138 Potassium 4.2 Chloride 103 Carbon Dioxide 28.8 Anion Gap 6 BUN 16 Creatinine 0.76 Estimated GFR 83 L Random Glucose 113 H Calcium 9.0 Total Bilirubin 0.2 AST 19 ALT 28 Alkaline Phosphatase 83 Total Protein 8.1 Albumin 2.9 L - Impressions ITS Impressions Abdomen/Pelvis CT 11/07/17 07:48 CONCLUSION: 1. Nonobstructive bowel gas pattern with moderate amount of stool throughout the colon. No oral contrast was given significantly limiting the visualization of the bowel mesentery in this patient with limited mesenteric fat. 2. The gallbladder is unremarkable in appearance. Thoracic Spine MRI 11/09/17 00:00 CONCLUSION: 1. Small left paracentral disc protrusion at T6-7 with minimal encroachment on the left lateral recess. No significant canal or foraminal stenosis. No abnormal enhancement postcontrast. No fracture or spondylolisthesis. Cervical Spine MRI 11/09/17 12:35 CONCLUSION: 1. Mild degenerative disc disease. No canal or significant foraminal stenosis. No cord signal abnormality. Head MRI 11/09/17 12:35 CONCLUSION: 1. Negative MR Brain with and without contrast. SPECT Scan-Bone NM 11/12/17 00:00 CONCLUSION: 1. Pars defect L5-S1. 2. There is section CT with oblique reconstructions could help confirm if this remains symptomatic. 3. I do not see evidence for inflammatory process. Abdomen X-Ray 11/14/17 00:00 CONCLUSION: 1. Large amount stool in the proximal colon. 2. Gaseous distention of the colon down to the distal descending. The sigmoid and rectal vault are decompressed. Diagnostic considerations include recent evacuation of the distal colon with an element of constipation versus distal colonic obstruction. 3. No pneumoperitoneum. Lumbar Spine MRI 11/19/17 00:00 CONCLUSION: 1. Changing pattern of enhancement at the L5-S1 level, now with enhancement which crosses the posterior one third of the interspace and there is a increasing degree of postcontrast enhancement in the marrow of the posterior one third of L5 and S1. This suggests the inflammatory process now involves the posterior disc. The enhancing epidural tissue posterior to L5 and S1 is stable in size and degree of enhancement. Discharge Plan - Discharge Disposition Patient Disposition: 01 Discharge Home - Discharge Condition Condition: Stable - Discharge Order Discharge Orders: Discharge Order (Routine); Ordered 11/20/17 Ordered By: Patsy Manriquez - Discharge Details Anticipated Discharge Date: 11/20/17 - Physicians Team Primary Care Provider: Primary Care Elisei,No Attending Provider: Jesus Arriaga Other Providers: Jamie Del Valle MD, PhD ; Georgette Mendez MD ; Johnathon Ordaz MD
--- NOTE | 2017-11-20 17:07 | P.PNID ---
Subjective Remarks: doing OK NO rash MRI report was reviewed Some progression of emchancement was noted NO new c/o no fever Antibiotics: Levaquin IV Lines: Lines ok Past Medical History: reviewed Allergies/Adverse Reactions: Allergies cefepime Allergy (Verified 11/19/17 16:31) Rash, Generalized Objective Vital Signs 11/19/17 18:42 11/19/17 20:00 11/19/17 23:00 Temperature 98.7 F Pulse Rate 98 H Respiratory Rate 18 18 16 Blood Pressure 142/90 H Pulse Oximetry 98 11/20/17 08:00 11/20/17 12:00 Temperature 98.4 F 98.4 F Pulse Rate 104 H 148 H Respiratory Rate 16 22 Blood Pressure 155/108 H 133/95 H Pulse Oximetry 98 99 Intake & Output 11/19/17 11/20/17 11/20/17 18:59 06:59 18:59 Intake Total 1941 150 / 150 Balance 1941 150 / 150 Intake: IV 150 / 150 Levaquin 750 mg Premix Inj 150 150 / 150 ML @ 100 mls/hr IV.SIG Q24H [facility] Rx#:[id number] Oral 1941 Other: # Voids 6 Date of Last Bowel Movement 11/19/17 11/20/17 # Bowel Movements 4 Lab - Hematology Results 11/20/17 11:48 WBC 6.3 RBC 4.65 Hgb 12.8 Hct 38.7 MCV 83.3 MCH 27.6 MCHC 33.2 RDW 13.7 Plt Count 311 MPV 6.8 L Neut % (Auto) 65.8 Lymph % (Auto) 24.4 Garrard % (Auto) 7.4 Eos % (Auto) 2.0 Baso % (Auto) 0.4 Neut # (Auto) 4.2 Lymph # (Auto) 1.5 Garrard # (Auto) 0.5 Eos # (Auto) 0.1 Baso # (Auto) 0.0 WBC Differential . Differential Comment Auto diff final Lab - Chemistry Results 11/20/17 11:48 Sodium 138 Potassium 4.2 Chloride 103 Carbon Dioxide 28.8 Anion Gap 6 BUN 16 Creatinine 0.76 Estimated GFR 83 L Random Glucose 113 H Calcium 9.0 Total Bilirubin 0.2 AST 19 ALT 28 Alkaline Phosphatase 83 Total Protein 8.1 Albumin 2.9 L Imaging: ITS Impressions Abdomen/Pelvis CT 11/07/17 07:48 CONCLUSION: 1. Nonobstructive bowel gas pattern with moderate amount of stool throughout the colon. No oral contrast was given significantly limiting the visualization of the bowel mesentery in this patient with limited mesenteric fat. 2. The gallbladder is unremarkable in appearance. Thoracic Spine MRI 11/09/17 00:00 CONCLUSION: 1. Small left paracentral disc protrusion at T6-7 with minimal encroachment on the left lateral recess. No significant canal or foraminal stenosis. No abnormal enhancement postcontrast. No fracture or spondylolisthesis. Cervical Spine MRI 11/09/17 12:35 CONCLUSION: 1. Mild degenerative disc disease. No canal or significant foraminal stenosis. No cord signal abnormality. Head MRI 11/09/17 12:35 CONCLUSION: 1. Negative MR Brain with and without contrast. SPECT Scan-Bone NM 11/12/17 00:00 CONCLUSION: 1. Pars defect L5-S1. 2. There is section CT with oblique reconstructions could help confirm if this remains symptomatic. 3. I do not see evidence for inflammatory process. Abdomen X-Ray 11/14/17 00:00 CONCLUSION: 1. Large amount stool in the proximal colon. 2. Gaseous distention of the colon down to the distal descending. The sigmoid and rectal vault are decompressed. Diagnostic considerations include recent evacuation of the distal colon with an element of constipation versus distal colonic obstruction. 3. No pneumoperitoneum. Lumbar Spine MRI 11/19/17 00:00 CONCLUSION: 1. Changing pattern of enhancement at the L5-S1 level, now with enhancement which crosses the posterior one third of the interspace and there is a increasing degree of postcontrast enhancement in the marrow of the posterior one third of L5 and S1. This suggests the inflammatory process now involves the posterior disc. The enhancing epidural tissue posterior to L5 and S1 is stable in size and degree of enhancement. Physical Exam: GENERAL: Well-nourished well-developed, not in acute distress SKIN: Cool and dry, no generalized rash EYES: Pupils equal round and reactive. Scleral icterus. No injection or drainage. No petechia RESPIRATORY: breathing unlaboured MUSCULOSKELETAL: Extremities without clubbing, cyanosis or edema NEUROLOGICAL: Alert oriented 3. Nonfocal. Ambulates Psych cooperative, calm IV line sites ok. Assessment and Plan - Plan High grade Serratia bacteremia Lower back pain, she clearly localizing towards lower back Phlegmone diskitis of L spine 2 D echo negative Rash: drug rash from Cefepime IV. Recs: Continue Levaquin IV for now. repeat MRI - if better or no change will dc on Levaquin dw case mngr and RN add cefepime to allergies
--- NOTE | 2017-11-20 20:03 | ECG ---
Date Performed: 11/20/2017 Time Performed: 11:38:29 PTAGE: 42 years EKG: SINUS TACHYCARDIA POSSIBLE RIGHT VENTRICULAR CONDUCTION DELAY ABNORMAL RHYTHM ECG PREVIOUS TRACING : 11/17/2017 17.21 Since the previous tracing, no significant change noted DOCTOR: Bam Guerra Interpretating Date/Time 11/20/2017 19:59:34
== END 2017-11-20 16:40 | disposition home or self-care (01) ==
LOC: NEPE 07:02 → NEDA 13:36 → N05 15:51
PROVIDERS: ADMIT Hospitalist; ATTEND Hospitalist